=== PATIENT | female | born 1980 | race Caucasian/White ===

== ENCOUNTER → 2016-04-12 | Outpatient (CLI) | payer OTHER ==
--- NOTE | 2016-04-12 22:35 | MR ---
EXAMINATION TYPE: MR lumbar spine wo con DATE OF EXAM: 04/12/2016 6:26 PM COMPARISON: NONE HISTORY: Low back pain TECHNIQUE: T1 and T2 axial and sagittal images of the lumbar spine are submitted. FINDINGS: There is no abnormal signal seen within the visualized spinal cord or paraspinal soft tissu es. At L1-2 there is no evidence of disc herniation or canal stenosis. No foraminal encroachment. At L2-3 there is no evidence of disc herniation or canal stenosis. No foraminal encroachment. At L3-4 there is no evidence of disc herniation or canal stenosis. No foraminal encroachment. There i s facet arthropathy. No nerve root impingement. At L4-5 there is no evidence of disc herniation or canal stenosis. No foraminal encroachment. There i s facet arthropathy. At L5-S1 there is no evidence of disc herniation or canal stenosis. No foraminal encroachment. There is facet arthropathy. IMPRESSION: 1. Facet arthropathy L3-4, L4-5 and L5-S1 but no evidence of disc herniation, canal stenosis or billy inal encroachment.
== END | disposition home or self-care (01) ==
LOC: RADMRIMAIN 17:13
PROVIDERS: ATTEND Nurse Practitioner Family
DX: M46.86 Other specified inflammatory spondylopathies, lumbar region (principal); M54.5 Low back pain
CPT/HCPCS: 72148

== ENCOUNTER → 2016-06-09 | Outpatient (CLI) | payer OTHER ==
--- NOTE | 2016-06-09 21:15 | MR ---
EXAMINATION TYPE: MR knee LT wo con DATE OF EXAM: 06/09/2016 12:41 PM COMPARISON: NONE HISTORY: Acute Pain of Left Knee TECHNIQUE: Multiplanar, multisequence imaging of the left knee is performed without IV contrast. FINDINGS: MEDIAL MENISCUS: Anterior and posterior horns are intact without tear. LATERAL MENISCUS: Anterior and posterior horns are intact without tear. CRUCIATE LIGAMENTS: The anterior and posterior cruciate ligaments are intact and unremarkable. COLLATERAL LIGAMENTS: Abnormal increased signal associated with the medial collateral ligament, there is thickening present, irregularity at the origin suggests at least a partial tear EXTENSOR MECHANISM: Visualized quadriceps and patellar tendons are intact. EFFUSION: Small effusion POPLITEAL CYST: Small semimembranosus gastrocnemius cyst is present TRICOMPARTMENT SPACES: Relatively maintained with the exception of the patellofemoral joint CARTILAGE: Chondromalacia patella, grade IV chondromalacia present especially at the lateral facet. BONE MARROW SIGNAL: Subchondral low signal at the lateral femoral condyle is associated with bone mar row edema compatible with possible subchondral fracture, microtrabecular fracture with bone marrow ed danay. Marrow edema also present in the medial femoral condyle near the origin of the medial collateral ligament OTHER: No additional significant abnormality is appreciated. IMPRESSION: Subchondral fracture lateral femoral condyle is suspected, findings suggest at least a partial tear o f the medial collateral ligament at its origin, there is associated local marrow edema. Chondromalaci a patella.
== END | disposition home or self-care (01) ==
LOC: RADMRIMAIN 11:29
PROVIDERS: ATTEND Nurse Practitioner Family
DX: M22.42 Chondromalacia patellae, left knee (principal); S83.412A Sprain of medial collateral ligament of left knee, initial encounter

== ENCOUNTER → 2016-07-02 | Outpatient (CLI) | payer OTHER ==
--- NOTE | 2016-07-02 10:41 | US ---
EXAMINATION TYPE: US abdomen complete DATE OF EXAM: 07/02/2016 9:22 AM COMPARISON: NONE CLINICAL HISTORY: R10.12 LUQ PAIN. LUQ pain, cholecystectomy EXAM MEASUREMENTS: Liver Length: 19.6 cm Gallbladder Wall: Surgically absent CBD: 0.6 cm Spleen: 10.1 cm Right Kidney: 10.3 x 5.8 x 5.4 cm Left Kidney: 12.0 x 5.4 x 5.7 cm Pancreas: limited evaluation due to overlying bowel, visualized portions appear slightly heterogeneo us Liver: enlarged Gallbladder: Surgically absent CBD: wnl Spleen: wnl Right Kidney: visualized portions show no evidence of hydronephrosis Left Kidney: cystic area lower pole = 1.6 x 1.4 x 1.4cm Upper IVC: wnl Abd Aorta: wnl *Exam limitations due to large amount of overlying bowel content The liver is enlarged. No space occupying lesions noted. The gallbladder is surgically absent. The in trahepatic portion of the IVC and proximal abdominal aorta are within normal limits. Common bile d uct is unremarkable. The visualized portions of the pancreas are homogenous. The spleen is unremark able. Kidneys are symmetric and free of hydronephrosis. Simple appearing appearing cyst lower pole l eft kidney measuring 1.6 x 1.4 x 1.4 cm. IMPRESSION: 1. Hepatomegaly. 2. Simple appearing cyst left kidney.
== END | disposition home or self-care (01) ==
LOC: RADUSWWP 08:41
PROVIDERS: ATTEND Family Medicine
DX: R16.0 Hepatomegaly, not elsewhere classified (principal); N28.1 Cyst of kidney, acquired
CPT/HCPCS: 76700

== ENCOUNTER → 2016-08-07 | Outpatient (CLI) | payer OTHER ==
--- NOTE | 2016-08-07 19:05 | CT ---
EXAMINATION TYPE: CT abdomen w con DATE OF EXAM: 08/07/2016 COMPARISON: NONE HISTORY: Umbilical pain with known hernia CT DLP: 1502 mGycm Automated exposure control for dose reduction was used. TECHNIQUE: Multiple axial sections were obtained from the diaphragm to the iliac crests with intrave nous contrast.. CONTRAST: Performed with Oral Contrast and with IV Contrast, patient injected with 100 mL of Omnipaque 300. FINDINGS: The lung bases are clear. There is no pleural effusion. There is a calcified granuloma in the right l ower lobe. Heart size is normal. There is no pericardial effusion. The liver spleen pancreas appear normal. Ther e are clips from cholecystectomy. Bile ducts are not dilated. There is no adrenal mass. Kidneys show satisfactory contrast opacification. There is no hydronephrosis. There is a 2 cm cortical cyst on the lateral left kidney. There is no retroperitoneal adenopathy. There is an umbilical hernia that conta ins omental fat. I see no bony destructive process. I see no intestinal wall thickening. IMPRESSION: UMBILICAL HERNIA. LEFT RENAL CORTICAL CYST. NO SIGN OF ACUTE ABDOMEN.
== END | disposition home or self-care (01) ==
LOC: RADCTMAIN 17:11
PROVIDERS: ATTEND Surgery
DX: K42.9 Umbilical hernia without obstruction or gangrene (principal); N28.1 Cyst of kidney, acquired
CPT/HCPCS: 74160; Q9967

== ENCOUNTER 2016-08-23 07:59 | Day surgery (SDC) | payer OTHER ==
[2016-08-20 11:10] VITALS: BMI 44.9
[~2016-08-23 07:59] MED LIST: DEXAMETHASONE SOD PHOSPHATE 10 MG/ML 1 ML VIAL IV ONE; HEPARIN SODIUM,PORCINE 5,000 UNIT/ML 1 ML VIAL SQ ONE; LACTATED RINGERS 1,000 ML IV SCH; ONDANSETRON 4 MG/2 ML VIAL IVP ONE; ceFAZolin 2 GM in SODIUM CHLORIDE 0.9% 100 ML IVPB ONE
[2016-08-23] MEDS ORDERED: LACTATED RINGERS 1,000 ML IV ONE ×2 (08:17→10:08)
[2016-08-23] MEDS ORDERED: LIDOCAINE 1% 20 ML VIAL (10MG/ML) FOR IV START INTRADERMA ONE (08:21)
[2016-08-23] MEDS ORDERED: PROPOFOL 10 MG/ML 20 ML VIAL IV ONE (08:30)
[2016-08-23] MEDS ORDERED: fentaNYL (PF) 50 MCG/ML 2 ML AMP ONE (08:30)
[2016-08-23] MEDS ORDERED: VECURONIUM 10 MG VIAL IV ONE (08:30)
[2016-08-23] MEDS ORDERED: NEOSTIGMINE 1 MG/ML 10 ML VIAL ONE (08:30)
[2016-08-23] MEDS ORDERED: LIDOCAINE 1% INJ 10MG/ML (20 ML MDV) ONE (08:30)
[2016-08-23] MEDS ORDERED: MEPERIDINE 50 MG/ML SYRINGE ONE (08:30)
[2016-08-23] MEDS ORDERED: GLYCOPYRROLATE 0.2 MG/ML 2 ML VIAL ONE ×2 (08:30)
[2016-08-23] MEDS ORDERED: SUCCINYLCHOLINE CHLORIDE 100 MG/5 ML SYR IV ONE (08:30)
[2016-08-23] MEDS ORDERED: MIDAZOLAM 2 MG/2 ML VIAL ONE (08:30)
[2016-08-23] MEDS ORDERED: ALBUTEROL INHALER 60 PUFF/8 GM INHALER INHALATION ONE (08:30)
[2016-08-23] MEDS ORDERED: BUPIVACAIN-EPI 0.5%-1:200,000 30 ML VIAL SQ ONE (09:24)
--- NOTE | 2016-08-23 11:00 | P.OP ---
Date of Procedure: 08/23/16 Preoperative Diagnosis: Umbilical hernia Postoperative Diagnosis: incarcerated umbilical hernia containing omentum Procedure(s) Performed: Robot assisted laparoscopic repair of the umbilical hernia with mesh Implants: Anesthesia: JUAN CARLOSA Surgeon: Sandra Farrell Pathology: none sent Condition: stable Disposition: PACU Indications for Procedure: Operative Findings: Description of Procedure: Informed consent was obtained and the patient prior to the operation. Patient identified in the preoperative holding area taken the operating room placed in supine position given general anesthesia with endotracheal intubation. The patient's right arm was tucked and left plaed. After appropriately positioning the patient the patient was prepped and draped in the usual sterile surgical fashion. Appropriate timeout was called. Patient received 2 g of Ancef for skin prophylaxis and 5000 units of subcu heparin for thromboprophylaxis preoperatively. SCDs were placed. Left upper quadrant with a identified and infiltrated with lidocaine small incision was made with the help of 11 blade and then a Veress needle was introduced position of which was checked with the help of the drop test. However, that was not successful. Using the optiview technique the abdomen was entered The abdomen was then insufflated to 15 mmHg. Once that was done, 12 mm port was placed in the left upper quadrant and 2 8 mm ports were placed in the left upper quadrant and left lower quadrant respectively. At this time for laparoscopic scope was removed and the robot was docked with the 12 mm camera and the progress in the left hand and scissors in the right hand were taken. The 3 cm henria was visualized to contain a large amount of omentum. That was gently reduced. The fascial defect was 2.8 cm and a mesh 11cm circular ventralight was selected. The fascial defect was closed with a running 0V lock suture. The mesh was introduced along with the needles. for the 2 0 v lock sutures. . Running 2 0V lock suture was used to stitch the mesh to the abdominal wall. Once that was done both needles were removed and the ometum that had to be broken off was placed in an endocatch bag and removed. . The mesh was flat well in placed with good overlap. There is no bleeding. At this time the procedure was terminated. The robot was undocked and its instruments removed. Using the laparoscope the 12 mm port site was closed with a Hayden Carey and 0 Vicryl. The ports were removed abdomen was desufflated and the skin was closed with the help of 4-0 Monocryl. Dermabond was applied. The patient tolerated the procedure well there were no complications patient was taken to recovery room in stable condition after extubation. Plan - Discharge Summary New Discharge Prescriptions: No Action Albuterol Inhaler [Ventolin Hfa Inhaler] 1 - 2 puff INHALATION Q6HR PRN PRN Reason: asthma FLUoxetine HCL [Sarafem] 60 mg PO HS traZODone HCL 100 mg PO HS Naproxen 500 mg PO DAILY Discharge Medication List Albuterol Inhaler [Ventolin Hfa Inhaler] 1 - 2 puff INHALATION Q6HR PRN [History] FLUoxetine HCL [Sarafem] 60 mg PO HS 08/20/16 [History] Naproxen 500 mg PO DAILY 08/20/16 [History] traZODone HCL 100 mg PO HS 08/20/16 [History]
[2016-08-23 11:03] VITALS: TEMP 97.4
[2016-08-23] MEDS: HYDROmorphone 1 MG/ML 1 ML SYRINGE IVP PRN ×4 (11:15→12:03)
[2016-08-23] MEDS ORDERED: KETOROLAC 30 MG/ML 1 ML VIAL IVP ONE (11:40)
[2016-08-23 12:51] VITALS: RESP 18
[2016-08-23] MEDS ORDERED: HYDROcodone/APAP 5-325MG 1 EACH TAB PO ONE (12:52)
[2016-08-23 13:35] VITALS: BP 114/70; PULSE 76
== END 2016-08-23 14:46 | disposition home or self-care (01) ==
LOC: OR 07:59
PROVIDERS: ATTEND Surgery
DX: K42.0 Umbilical hernia with obstruction, without gangrene (principal); F41.9 Anxiety disorder, unspecified; M19.90 Unspecified osteoarthritis, unspecified site; F32.9 Major depressive disorder, single episode, unspecified; F17.200 Nicotine dependence, unspecified, uncomplicated; J44.9 Chronic obstructive pulmonary disease, unspecified; F39 Unspecified mood [affective] disorder; Z79.1 Long term (current) use of non-steroidal anti-inflammatories (NSAID); Z79.52 Long term (current) use of systemic steroids; Z79.899 Other long term (current) drug therapy
CPT/HCPCS: 49653; S2900; 81025

== ENCOUNTER → 2016-10-05 | Outpatient (CLI) | payer OTHER ==
--- NOTE | 2016-10-05 12:11 | MR ---
MRI CERVICAL SPINE: CLINICAL HISTORY: Cervicalgia per order. Headaches with back pain per patient. TECHNIQUE: Multiplanar, multisequence imaging of the cervical spine is performed without IV contrast. COMPARISON: None. FINDINGS: Sagittal images of the cervical spine show the craniocervical junction to appear within nor mal limits. The cervical and upper thoracic spinal cord is normal in course, caliber, and signal. V ertebral alignment is anatomic. The vertebral body and intravertebral disk heights are normal. There is small posterior disc herniation C6-C7 level on sagittal images. The bone marrow signal intensity is within normal limits. No significant spurring is seen. There is a moderate to severe mucosal thic kening in visualized portion of larger right sphenoid sinus on sagittal image 9. Axial images show the C2-C3 and C3-C4 levels to appear within normal limits. Axial images at the C4-C5 level shows small right focal paracentral disc protrusion mildly effacing a nterior thecal sac near axial image 30, there is mild asymmetric left-sided neural foraminal narrowin g due to early uncovertebral facet arthropathy. Right-sided neural foramen is patent. Axial images at C5-C6 level are felt within normal limits. Axial images at C6-C7 level shows small central disc protrusion mildly effacing anterior thecal sac, bilateral neural foramina are patent. Axial images at C7-T1 level are felt within normal limits. IMPRESSION: Some mild degenerative changes C4-C5 and C6-C7 levels as detailed above.
== END | disposition home or self-care (01) ==
LOC: RADMRIMAIN 10:59
PROVIDERS: ATTEND Physician Assistant
DX: M47.812 Spondylosis without myelopathy or radiculopathy, cervical region (principal)
CPT/HCPCS: 72141

== ENCOUNTER → 2016-10-23 | Outpatient (CLI) | payer OTHER ==
[2016-10-25 14:34] LABS: Alternaria alternata IgE <0.35 kU/L (<0.35); Asperg. fumagatus IgE <0.35 kU/L (<0.35); Asperg. fumagatus IgE Class CLASS 0; Birch(Com.Silvr) IgE Class CLASS 0; Cat Epith & Dander IgE <0.35 kU/L (<0.35); Cat Epith & Dander IgE Class CLASS 0; Clad herbarum IgE <0.35 kU/L (<0.35); Clad herbarum IgE Class CLASS 0; Common Ragweed IgE Class CLASS 0; Dermato. Pteronyssinus Class CLASS 0; Dermato. Pteronyssinus IgE <0.35 kU/L (<0.35); Dermato. farinae IgE <0.35 kU/L (<0.35); Dermato. farinae IgE Class CLASS 0; Maple (Box Elder) IgE <0.35 kU/L (<0.35); Maple (Box Elder) IgE Class CLASS 0; Mountain Cedar IgE <0.35 kU/L (<0.35); Mountain Cedar IgE Class CLASS 0; Mouse Urine IgE Class CLASS 0; Mouse Urine Proteins,IgE <0.35 kU/L (<0.35); Mulberry IgE Class CLASS 0; Nettle IgE <0.35 kU/L (<0.35); Nettle IgE Class CLASS 0; Oak IgE <0.35 kU/L (<0.35); Penicillium notatum IgE Class CLASS 0; Rough Marshelder IgE <0.35 kU/L (<0.35); Rough Marshelder IgE Class CLASS 0; Timothy Grass IgE <0.35 kU/L (<0.35); Timothy Grass IgE Class CLASS 0; White Ash IgE Class CLASS 0
== END | disposition home or self-care (01) ==
LOC: LABWHC1 14:07
PROVIDERS: ATTEND Internal Medicine Sleep Medicine
DX: B44.81 Allergic bronchopulmonary aspergillosis (principal)
CPT/HCPCS: 36415; 82785; 86001; 86003; 86606; 86609

== ENCOUNTER → 2017-01-14 | Outpatient (CLI) | payer OTHER ==
--- NOTE | 2017-01-14 22:58 | MR ---
EXAMINATION TYPE: MR Cspine/lspine wo con DATE OF EXAM: 01/14/2017 COMPARISON: NONE HISTORY: 36-year-old female with low Back Pain /Leg Numbness / TSpine Pain TECHNIQUE: Multiplanar, multisequence imaging of the thoracic spine followed by the lumbar spine is p erformed without IV contrast. FINDINGS: THORACIC SPINE: Mild disc desiccation and disc bulging at C7 without significant spinal canal stenosis. Normal alignment of the thoracic spine. No suspicious bone marrow replacement. Vertebral body heights are maintained. No focal disc herniation or significant spinal canal or neuroforaminal stenosis. Francheska y minimal early disc desiccation and minimal posterior disc bulge at T11-T12. Normal course, caliber, and signal intensity of the cervical cord. No prevertebral or paravertebral soft tissue abnormality seen. LUMBAR SPINE: Vertebral body heights are preserved and alignment is maintained. Conus medullaris is normal. Mild facet degenerative change lower lumbar spine and hypertrophic facet degenerative change at L3-L4 . No suspicious bone marrow replacement. No focal disc herniation or significant spinal canal or neurof oraminal stenosis seen. No prevertebral or paravertebral soft tissue abnormality. COMBINED IMPRESSION: THORACIC SPINE: 1. Unremarkable MRI of the thoracic spine. LUMBAR SPINE: 1. No vertebral compression collapse or malalignment. No focal disc herniation or significant spinal canal or neuroforaminal stenosis. 2. Hypertrophic facet arthropathy L3-L4. Additional mild facet arthropathy lower lumbar spine.
== END | disposition home or self-care (01) ==
LOC: RADMRIMAIN 11:45
PROVIDERS: ATTEND Family Medicine
DX: M46.96 Unspecified inflammatory spondylopathy, lumbar region (principal); M54.6 Pain in thoracic spine; R20.0 Anesthesia of skin
CPT/HCPCS: 72146; 72148

== ENCOUNTER → 2017-04-08 | Outpatient (CLI) | payer OTHER ==
[2017-04-08 13:06] LABS: HCT 47.6 % (34.0-46.0); HGB 15.3 gm/dL (11.4-16.0); MCH 28.8 pg (25.0-35.0); MCHC 32.1 g/dL (31.0-37.0); MCV 89.5 fL (80.0-100.0); Platelet Count 306 k/uL (150-450); RBC 5.31 m/uL (3.80-5.40); RDW 13.9 % (11.5-15.5); WBC 15.2 k/uL (3.8-10.6)
[2017-04-08 13:20] LABS: ALT 23 U/L (9-52); AST 16 U/L (14-36); Albumin 3.7 g/dL (3.5-5.0); Alkaline Phosphatase 70 U/L (38-126); Anion Gap 8 mmol/L; Blood Urea Nitrogen 9 mg/dL (7-17); Calcium 9.5 mg/dL (8.4-10.2); Carbon Dioxide 29 mmol/L (22-30); Chloride 105 mmol/L (98-107); Glucose 78 mg/dL (74-99); Magnesium 2.1 mg/dL (1.6-2.3); Potassium 4.9 mmol/L (3.5-5.1); Sodium 142 mmol/L (137-145); Total Bilirubin 0.2 mg/dL (0.2-1.3); Total Protein 6.2 g/dL (6.3-8.2)
[2017-04-08 13:32] LABS: T4, Free (Free Thyroxine) 0.88 ng/dL (0.78-2.19)
[2017-04-08 19:01] LABS: Vitamin D 25 Hydroxy 15.2 ng/mL (30.0-100.0)
--- NOTE | 2017-04-09 11:09 | MR ---
EXAMINATION TYPE: MR brain wo/w con DATE OF EXAM: 04/08/2017 COMPARISON: NONE HISTORY: Lower leg weakness per order. Numbness in legs with bilateral extremity weakness and numbnes s per patient. TECHNIQUE: Multiplanar, multisequence images of the brain and brainstem is performed without and with IV contras t, utilizing 13 mL intravenous Gadavist . FINDINGS: Diffusion weighted images demonstrate no evidence of a recent infarct or other diffusion ab normality. There is no worrisome extra-axial fluid collection. The ventricular system and cisternal spaces are normal in size and appearance. The brain volume is age appropriate. There are few scatte red foci of T2 hyperintensity seen throughout the white matter bilaterally. There is some artifact de gradation making evaluation suboptimal. I only identify 3-5 small lesions measuring 3 mm or smaller i n size that are present on both T2 and FLAIR weighted images. Midline structures demonstrate normal morphology. The craniocervical junction appears within normal limits. Post contrast images demonstrate no abnormal enhancement. The dural venous sinuses appear pa tent. There is mild mucosal thickening with dependent fluid in the right maxillary sinus. There is mo re moderate mucosal thickening with some dependent fluid in the left maxillary sinus. There is mild m ucosal thickening involving left posterior ethmoid sinus. Nasal Septum is slightly deviated to left o f midline. The globes are intact bilaterally. IMPRESSION: 1. No evidence of a recent infarct. 2. Minimal nonspecific white matter changes. No enhancing lesions are seen. 3. Acute on chronic paranasal sinus disease as detailed above.
== END | disposition home or self-care (01) ==
LOC: RADMRIMAIN 12:11
PROVIDERS: ATTEND Nurse Practitioner Acute Care
DX: R90.82 White matter disease, unspecified (principal); J32.9 Chronic sinusitis, unspecified; J01.80 Other acute sinusitis
CPT/HCPCS: 84439; 84481; 80053; 82607; 83735; 84443; 85027; 82306; 70553; 36415; A9581

== ENCOUNTER → 2017-05-30 | Outpatient (CLI) | payer OTHER ==
[2017-05-30 11:59] LABS: Basophils # (A) 0.1 k/uL (0-0.2); Basophils % (A) 1 %; Eosinophils # (A) 0.4 k/uL (0-0.7); Eosinophils % (A) 3 %; HCT 49.5 % (34.0-46.0); HGB 15.7 gm/dL (11.4-16.0); Lymphocytes # (A) 3.7 k/uL (1.0-4.8); Lymphocytes % (A) 31 %; MCH 27.7 pg (25.0-35.0); MCHC 31.8 g/dL (31.0-37.0); MCV 87.3 fL (80.0-100.0); Mean Platelet Volume 8.7; Monocytes # (A) 0.5 k/uL (0-1.0); Monocytes % (A) 4 %; Neutrophils % (A) 59 %; Platelet Count 296 k/uL (150-450); RBC 5.66 m/uL (3.80-5.40); RDW 14.2 % (11.5-15.5); WBC 11.8 k/uL (3.8-10.6)
== END | disposition home or self-care (01) ==
LOC: LABWHC1 11:27
PROVIDERS: ATTEND Internal Medicine Sleep Medicine
DX: B44.81 Allergic bronchopulmonary aspergillosis (principal)
CPT/HCPCS: 36415; 82785; 85025

== ENCOUNTER → 2017-08-13 | Outpatient (CLI) | payer OTHER ==
[2017-08-13 20:33] LABS: Total Protein,CSF 24 mg/dL (12-60)
[2017-08-13 21:48] LABS: Appearance,CSF Clear; CSF Tube Number 4; CSF Tube Volume 3; Nucleated Cells, CSF 1 u/L (0-5); Red Blood Cell,CSF 0 u/L (0-10)
[2017-08-16 13:49] LABS: IgG - CSF 0.5 mg/dL (0.0 - 3.4); IgG/Albumin Index (CSF) 0.46 (0.00 - 0.77); Immunoglobulin G 479 mg/dL (700 - 1600)
== END | disposition home or self-care (01) ==
LOC: LABWHC1 13:51
PROVIDERS: ATTEND Psychiatry & Neurology Neurology
DX: R90.82 White matter disease, unspecified (principal)
CPT/HCPCS: 36415; 82040; 82042; 82784; 83873; 83916; 84157; 87476; 88108; 89050

== ENCOUNTER → 2018-04-17 | Outpatient (CLI) | payer OTHER ==
--- NOTE | 2018-04-17 09:30 | US ---
EXAMINATION TYPE: US venous doppler duplex LE LT DATE OF EXAM: 04/17/2018 7:33 AM COMPARISON: NONE CLINICAL HISTORY: 38-year-old female M79.89 Swelling left lower M79.605 Pain left lower. Left leg ramsey n x couple years, gotten worse in last couple months, intermittent left leg swelling x couple months SIDE PERFORMED: Left TECHNIQUE: The lower extremity deep venous system is examined utilizing real time linear array sonog cherelle with graded compression, doppler sonography and color-flow sonography. FINDINGS: VESSELS IMAGED: External Iliac Vein (EIV) Common Femoral Vein Deep Femoral Vein Greater Saphenous Vein * Femoral Vein Popliteal Vein Small Saphenous Vein * Proximal Calf Veins (* superficial vessels) Left Leg: Appears negative for DVT IMPRESSION: No evidence for DVT within the left lower extremity imaged from the groin through the upper calf.
== END | disposition home or self-care (01) ==
LOC: RADUSWWP 07:10
PROVIDERS: ATTEND Family Medicine
DX: M79.605 Pain in left leg (principal); M79.89 Other specified soft tissue disorders
CPT/HCPCS: 93922

== ENCOUNTER 2018-11-15 09:55 | Emergency (ER) | payer OTHER ==
[2018-11-15 09:59] VITALS: BP 150/77; PULSE 112; RESP 20; TEMP 98.8
[2018-11-15] MEDS ORDERED: KETOROLAC 60 MG/2 ML VIAL IM STA (10:07)
--- NOTE | 2018-11-15 10:09 | ED ---
Extremity Problem HPI - General Chief complaint: Extremity Problem,Nontraumatic Stated complaint: Arm pain Time Seen by Provider: 11/15/18 09:59 Source: patient, RN notes reviewed, old records reviewed Mode of arrival: ambulatory Limitations: no limitations - History of Present Illness Initial comments: Patient is a 38-year-old female, presents emergency department today for evaluation for right shoulder and arm pain with range of motion. Patient's symptoms started after she was trying to break up a dogfight and she grabbed a 60 pound dog by the collar and pulled up. Patient reports that since that time she's had inability with any range of motion above her head. Patient does walk with a walker. She has history of rheumatoid arthritis and to see Dr. Fowler. Patient is on Stephens chronically for her chronic pain in her back. She reports normal sensation in her hand. She does report that she felt that her arm was swollen. Denies any chest pain shortness of breath. - Related Data Home Medications Medication Instructions Recorded Confirmed Albuterol Inhaler [Ventolin Hfa 1 - 2 puff INHALATION Q6HR PRN 08/20/16 08/20/16 Inhaler] FLUoxetine HCL [Sarafem] 60 mg PO HS 08/20/16 08/20/16 Naproxen 500 mg PO DAILY 08/20/16 08/20/16 traZODone HCL 100 mg PO HS 08/20/16 08/20/16 Previous Rx's Medication Instructions Recorded HYDROcodone/APAP 5-325MG [Stephens 1 tab PO Q6HR PRN #15 tab 08/23/16 5-325] Ibuprofen [Motrin] 800 mg PO Q8H PRN #30 tab 08/23/16 Cyclobenzaprine [Flexeril] 10 mg PO TID #12 tab 11/15/18 Ibuprofen 600 mg PO TID #20 tablet 11/15/18 Allergies Allergy/AdvReac Type Severity Reaction Status Date / Time No Known Allergies Allergy Verified 08/20/16 10:59 Review of Systems ROS Statement: Those systems with pertinent positive or pertinent negative responses have been documented in the HPI. ROS Other: All systems not noted in ROS Statement are negative. Past Medical History Past Medical History: Asthma, COPD, GERD/Reflux, Osteoarthritis (OA), Rheumatoid Arthritis (RA) History of Any Multi-Drug Resistant Organisms: None Reported Past Surgical History: Cholecystectomy, Hernia Repair Past Psychological History: Anxiety, Depression Smoking Status: Current every day smoker Past Alcohol Use History: None Reported Past Drug Use History: None Reported General Exam - General Exam Comments Initial Comments: His is a 38-year-old female. Alert and oriented 3. No distress. Patient is morbidly obese. Ambulates with walker. Limitations: no limitations General appearance: alert, in no apparent distress Head exam: Present: atraumatic, normocephalic, normal inspection Eye exam: Present: normal appearance, PERRL, EOMI. Absent: scleral icterus, conjunctival injection, periorbital swelling ENT exam: Present: normal exam, mucous membranes moist Neck exam: Present: normal inspection Respiratory exam: Present: normal lung sounds bilaterally. Absent: respiratory distress, wheezes, rales, rhonchi, stridor Cardiovascular Exam: Present: regular rate, normal rhythm, normal heart sounds. Absent: systolic murmur, diastolic murmur, rubs, gallop, clicks GI/Abdominal exam: Present: soft, normal bowel sounds. Absent: distended, tenderness, guarding, rebound, rigid Extremities exam: Present: normal inspection, full ROM, normal capillary refill. Absent: tenderness, pedal edema, joint swelling, calf tenderness Right Shoulder Exam: Present: tenderness (Patient has tenderness over the trapezius.). Absent: normal inspection, full ROM Upper Arm exam: Present: normal inspection, full ROM Elbow exam: Present: normal inspection, full ROM Forearm Wrist exam: Present: normal inspection, full ROM Hand Wrist exam: Present: normal inspection, full ROM Vascular: Present: normal capillary refill Back exam: Present: normal inspection Neurological exam: Present: alert, oriented X3, CN II-XII intact Psychiatric exam: Present: normal affect, normal mood Skin exam: Present: warm, dry, intact, normal color. Absent: rash Course Vital Signs 11/15/18 09:56 Temperature 98.8 F Pulse Rate 112 H Respiratory 20 Rate Blood Pressure 150/77 O2 Sat by Pulse 99 Oximetry Procedures - Orthopedic Splinting/Casting Injury #1 Side: right Upper Extremity Injury Location: shoulder Upper Extremity Immobilizer: sling/shoulder immobilizer Additional Comments: Patient is reevaluated neurovascularly intact. Medical Decision Making - Medical Decision Making 38-year-old female presents emergency department today with right shoulder pain injury after pulling her heavy dog from another dog to stop a fight. Patient has pain with range of motion above the head. She is only able to abduct her arm to less than 90. Patient was informed of possible rotator cuff injury. Shoulder x-ray was completed and negative for any acute process. Patient at this time will be placed in a sling. I discussed the possibility of frozen shoulder syndrome and she does get this fully mobilized. 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 Patient is agreeable treatment plan will comply. Return parameters were discussed. - Radiology Data Radiology results: report reviewed Shoulder x-rays negative for any acute osseous lesion. Disposition Clinical Impression: Injury of right shoulder, Rotator cuff (capsule) sprain Disposition: HOME SELF-CARE Condition: Good Instructions (If sedation given, give patient instructions): Rotator Cuff Injury (ED) Additional Instructions: Please use at home medication as discussed. Please follow up with family doctor if symptoms have not improved over the next two days. Please return to the emergency room if your symptoms increase or worsen or for any other concerns. Prescriptions: Cyclobenzaprine [Flexeril] 10 mg PO TID #12 tab Ibuprofen 600 mg PO TID #20 tablet Is patient prescribed a controlled substance at d/c from ED?: No Referrals: Demi Topete MD [Primary Care Provider] - 1-2 days Kleber Roberts DO [Doctor of Osteopathic Medicine] - 1-2 days Time of Disposition: 10:29
--- NOTE | 2018-11-15 10:20 | XR ---
EXAMINATION TYPE: XR shoulder complete RT , 3 VIEWS DATE OF EXAM ORDERED: 11/15/2018 HISTORY: pulling injury, immobility. COMPARISON: None. FINDINGS: No fracture, dislocation or other acute osseous lesion is seen. IMPRESSION: NO ACUTE OSSEOUS LESION.
== END 2018-11-15 10:37 | disposition home or self-care (01) ==
LOC: EC 09:55
DX: S43.421A Sprain of right rotator cuff capsule, initial encounter (principal); G89.29 Other chronic pain; M54.9 Dorsalgia, unspecified; J44.9 Chronic obstructive pulmonary disease, unspecified; M19.90 Unspecified osteoarthritis, unspecified site; M06.9 Rheumatoid arthritis, unspecified; F32.9 Major depressive disorder, single episode, unspecified; F41.9 Anxiety disorder, unspecified; F17.200 Nicotine dependence, unspecified, uncomplicated; Z79.1 Long term (current) use of non-steroidal anti-inflammatories (NSAID); Z79.891 Long term (current) use of opiate analgesic; Z79.899 Other long term (current) drug therapy; X50.9XXA Other and unspecified overexertion or strenuous movements or postures, initial encounter; Y93.89 Activity, other specified
CPT/HCPCS: 73030; 99284; 96372; J1885

== ENCOUNTER 2020-07-26 09:39 | Inpatient (IN) | payer MEDICARE, OTHER ==
[2020-07-26] MEDS ORDERED: IPRATROPIUM-ALBUTEROL 3 ML NEB INHALATION STA (09:42)
[2020-07-26] MEDS ORDERED: methylPREDNISolone SOD SUCCI 125 MG/2 ML VIAL IV STA (09:42)
--- NOTE | 2020-07-26 10:09 | ED ---
SOB HPI - General Chief Complaint: Shortness of Breath Stated Complaint: SOB Time Seen by Provider: 07/26/20 09:39 Source: patient, EMS, RN notes reviewed Mode of arrival: EMS Limitations: no limitations - History of Present Illness Initial Comments: This is a 40-year-old female history of asthma COPD who states she's been short of breath or past several days also left upper quadrant pain for the last several days no fevers chills nausea vomiting sweats just no relief from her home medications patient was sent in by the primary care provider was brought in by EMS. Patient did take breathing treatments this morning without any relief at all. No other complaints or modifying factors MD Complaint: shortness of breath - Related Data Home Medications Medication Instructions Recorded Confirmed Amitriptyline HCl [Elavil] 150 mg PO HS 02/20/19 07/26/20 DULoxetine HCL [Cymbalta] 60 mg PO DAILY 02/20/19 07/26/20 Folic Acid 1 mg PO DAILY 02/20/19 07/26/20 Hydrocodone/Acetaminophen [[place] 1 tab PO BID PRN 02/20/19 07/26/20 7.5-325] Methotrexate/Pf [Rasuvo 25 mg/0.5 25 mg SQ SA 02/20/19 07/26/20 ml Autoinj] Omeprazole [PriLOSEC] 20 mg PO AC-BRKFST 02/20/19 07/26/20 Pregabalin [Lyrica] 300 mg PO BID 02/20/19 07/26/20 medroxyPROGESTERone [Depo-Provera] 150 mg IM Q90D 02/20/19 07/26/20 Artificial Tears-Hypromellose 1 drops BOTH EYES TID PRN 03/19/19 07/26/20 [Artificial Tear Drops] Potassium Chloride 10 meq PO DAILY 03/19/19 07/26/20 Albuterol Inhaler [Ventolin Hfa 2 puff INHALATION RT-Q4H PRN 07/26/20 07/26/20 Inhaler] Cholecalciferol [Vitamin D3 (25 50 mcg PO DAILY 07/26/20 07/26/20 Mcg = 1000 Iu)] Diclofenac Sodium Gel [Voltaren 2 gm TOPICAL TID 07/26/20 07/26/20 Gel] Ipratropium-Albuterol Nebulize 3 ml INHALATION RT-QID 07/26/20 07/26/20 [Duoneb 0.5 mg-3 mg/3 ml Soln] Loratadine [Claritin] 10 mg PO DAILY 07/26/20 07/26/20 Sarilumab [Kevzara] 200 mg SQ Q14D 07/26/20 07/26/20 Torsemide [Demadex] 40 mg PO DAILY 07/26/20 07/26/20 metFORMIN HCL [Glucophage] 500 mg PO DAILY 07/26/20 07/26/20 rOPINIRole HCL [Requip] 3 mg PO HS 07/26/20 07/26/20 Allergies Allergy/AdvReac Type Severity Reaction Status Date / Time No Known Allergies Allergy Verified 03/19/19 14:11 Review of Systems ROS Statement: Those systems with pertinent positive or pertinent negative responses have been documented in the HPI. ROS Other: All systems not noted in ROS Statement are negative. Past Medical History Past Medical History: Asthma, COPD, GERD/Reflux, Osteoarthritis (OA), Rheumatoid Arthritis (RA) Additional Past Medical History / Comment(s): migraines, edema celia ankles, History of Any Multi-Drug Resistant Organisms: None Reported Past Surgical History: Cholecystectomy, Hernia Repair Additional Past Surgical History / Comment(s): oral surgery, Past Anesthesia/Blood Transfusion Reactions: No Reported Reaction Past Psychological History: Anxiety, Depression, PTSD Smoking Status: Former smoker Past Alcohol Use History: None Reported Past Drug Use History: Marijuana - Past Family History Mother Family Medical History: No Reported History General Exam - General Exam Comments Initial Comments: This is a well-developed morbidly obese female who is awake alert demonstrate respiratory distress Limitations: no limitations General appearance: alert, anxious, in distress Head exam: Present: atraumatic, normocephalic, normal inspection Eye exam: Present: normal appearance, PERRL, EOMI. Absent: scleral icterus, conjunctival injection, periorbital swelling ENT exam: Present: normal exam, mucous membranes moist Neck exam: Present: normal inspection. Absent: tenderness, meningismus, lymphadenopathy Respiratory exam: Present: wheezes, decreased breath sounds. Absent: respiratory distress, rales, rhonchi, stridor Cardiovascular Exam: Present: normal rhythm, tachycardia, normal heart sounds. Absent: systolic murmur, diastolic murmur, rubs, gallop, clicks GI/Abdominal exam: Present: soft, normal bowel sounds, other (Obese abdomen). Absent: distended, tenderness, guarding, rebound, rigid Extremities exam: Present: normal inspection, full ROM, normal capillary refill. Absent: tenderness, pedal edema, joint swelling, calf tenderness Back exam: Present: normal inspection Neurological exam: Present: alert, oriented X3, CN II-XII intact Psychiatric exam: Present: normal affect, normal mood Skin exam: Present: warm, dry, intact, normal color. Absent: rash Course Vital Signs 07/26/20 07/26/20 07/26/20 09:40 09:53 10:26 Temperature 98.5 F Pulse Rate 133 H 116 H 120 H Respiratory 28 H 24 Rate Blood Pressure 128/94 O2 Sat by Pulse 89 L 92 L Oximetry 07/26/20 07/26/20 07/26/20 10:35 10:43 11:07 Temperature Pulse Rate 118 H 112 H 111 H Respiratory 24 20 Rate Blood Pressure 134/93 134/93 O2 Sat by Pulse 94 L 94 L Oximetry 07/26/20 07/26/20 11:37 13:00 Temperature Pulse Rate 111 H 112 H Respiratory 20 20 Rate Blood Pressure 138/97 127/90 O2 Sat by Pulse 94 L 95 Oximetry - Reevaluation(s) Reevaluation #1: 07/26/20 13:17 Reevaluation patient she is feeling improved Medical Decision Making - Medical Decision Making Patient does demonstrate evidence of COPD exacerbation addition to bilateral pulmonary emboli. CAT scan evidence of right heart strain echocardiogram pending patient will be admitted I did discuss case Dr. carranza and Dr. Camp. This will be pending the echo I did discuss case also with Dr. Gillis. - Lab Data Result diagrams: 07/26/20 09:57 07/26/20 09:57 Lab Results 07/26/20 07/26/20 07/26/20 Range/Units 09:57 09:57 09:57 WBC 14.2 H (3.8-10.6) k/uL RBC 5.50 H (3.80-5.40) m/uL Hgb 13.7 (11.4-16.0) gm/dL Hct 45.1 (34.0-46.0) % MCV 82.0 (80.0-100.0) fL MCH 24.9 L (25.0-35.0) pg MCHC 30.4 L (31.0-37.0) g/dL RDW 21.7 H (11.5-15.5) % Plt Count 230 (150-450) k/uL MPV 11.5 Neutrophils % 77 % Lymphocytes % 19 % Monocytes % 2 % Eosinophils % 0 % Basophils % 0 % Neutrophils # 10.9 H (1.3-7.7) k/uL Lymphocytes # 2.7 (1.0-4.8) k/uL Monocytes # 0.3 (0-1.0) k/uL Eosinophils # 0.0 (0-0.7) k/uL Basophils # 0.1 (0-0.2) k/uL Hypochromasia Marked Poikilocytosis Slight Anisocytosis Moderate Microcytosis Slight PT 10.8 (9.0-12.0) sec INR 1.0 (<1.2) APTT 20.1 L (22.0-30.0) sec D-Dimer 4.53 H (<0.60) mg/L FEU Sodium 137 (137-145) mmol/L Potassium 4.3 (3.5-5.1) mmol/L Chloride 103 (98-107) mmol/L Carbon Dioxide 25 (22-30) mmol/L Anion Gap 9 mmol/L BUN 12 (7-17) mg/dL Creatinine 0.84 (0.52-1.04) mg/dL Est GFR (CKD-EPI)AfAm >90 (>60 ml/min/1.73 sqM) Est GFR (CKD-EPI)NonAf 87 (>60 ml/min/1.73 sqM) Glucose 169 H (74-99) mg/dL Lactic Ac Sepsis Rflx Plasma Lactic Acid Frank (0.7-2.0) mmol/L Calcium 8.6 (8.4-10.2) mg/dL Magnesium 1.7 (1.6-2.3) mg/dL Total Bilirubin 1.0 (0.2-1.3) mg/dL AST 39 H (14-36) U/L ALT 53 H (4-34) U/L Alkaline Phosphatase 105 (38-126) U/L Creatine Kinase 72 (30-135) U/L Troponin I (0.000-0.034) ng/mL NT-Pro-B Natriuret Pep pg/mL Total Protein 5.9 L (6.3-8.2) g/dL Albumin 3.7 (3.5-5.0) g/dL Lipase (23-300) U/L Coronavirus (PCR) (Not Detectd) 07/26/20 07/26/20 07/26/20 Range/Units 09:57 09:57 09:57 WBC (3.8-10.6) k/uL RBC (3.80-5.40) m/uL Hgb (11.4-16.0) gm/dL Hct (34.0-46.0) % MCV (80.0-100.0) fL MCH (25.0-35.0) pg MCHC (31.0-37.0) g/dL RDW (11.5-15.5) % Plt Count (150-450) k/uL MPV Neutrophils % % Lymphocytes % % Monocytes % % Eosinophils % % Basophils % % Neutrophils # (1.3-7.7) k/uL Lymphocytes # (1.0-4.8) k/uL Monocytes # (0-1.0) k/uL Eosinophils # (0-0.7) k/uL Basophils # (0-0.2) k/uL Hypochromasia Poikilocytosis Anisocytosis Microcytosis PT (9.0-12.0) sec INR (<1.2) APTT (22.0-30.0) sec D-Dimer (<0.60) mg/L FEU Sodium (137-145) mmol/L Potassium (3.5-5.1) mmol/L Chloride (98-107) mmol/L Carbon Dioxide (22-30) mmol/L Anion Gap mmol/L BUN (7-17) mg/dL Creatinine (0.52-1.04) mg/dL Est GFR (CKD-EPI)AfAm (>60 ml/min/1.73 sqM) Est GFR (CKD-EPI)NonAf (>60 ml/min/1.73 sqM) Glucose (74-99) mg/dL Lactic Ac Sepsis Rflx Plasma Lactic Acid Frank 2.9 H* (0.7-2.0) mmol/L Calcium (8.4-10.2) mg/dL Magnesium (1.6-2.3) mg/dL Total Bilirubin (0.2-1.3) mg/dL AST (14-36) U/L ALT (4-34) U/L Alkaline Phosphatase (38-126) U/L Creatine Kinase (30-135) U/L Troponin I 0.017 (0.000-0.034) ng/mL NT-Pro-B Natriuret Pep 4690 pg/mL Total Protein (6.3-8.2) g/dL Albumin (3.5-5.0) g/dL Lipase (23-300) U/L Coronavirus (PCR) (Not Detectd) 07/26/20 07/26/20 07/26/20 Range/Units 09:57 10:01 10:55 WBC (3.8-10.6) k/uL RBC (3.80-5.40) m/uL Hgb (11.4-16.0) gm/dL Hct (34.0-46.0) % MCV (80.0-100.0) fL MCH (25.0-35.0) pg MCHC (31.0-37.0) g/dL RDW (11.5-15.5) % Plt Count (150-450) k/uL MPV Neutrophils % % Lymphocytes % % Monocytes % % Eosinophils % % Basophils % % Neutrophils # (1.3-7.7) k/uL Lymphocytes # (1.0-4.8) k/uL Monocytes # (0-1.0) k/uL Eosinophils # (0-0.7) k/uL Basophils # (0-0.2) k/uL Hypochromasia Poikilocytosis Anisocytosis Microcytosis PT (9.0-12.0) sec INR (<1.2) APTT (22.0-30.0) sec D-Dimer (<0.60) mg/L FEU Sodium (137-145) mmol/L Potassium (3.5-5.1) mmol/L Chloride (98-107) mmol/L Carbon Dioxide (22-30) mmol/L Anion Gap mmol/L BUN (7-17) mg/dL Creatinine (0.52-1.04) mg/dL Est GFR (CKD-EPI)AfAm (>60 ml/min/1.73 sqM) Est GFR (CKD-EPI)NonAf (>60 ml/min/1.73 sqM) Glucose (74-99) mg/dL Lactic Ac Sepsis Rflx Y Plasma Lactic Acid Frank (0.7-2.0) mmol/L Calcium (8.4-10.2) mg/dL Magnesium (1.6-2.3) mg/dL Total Bilirubin (0.2-1.3) mg/dL AST (14-36) U/L ALT (4-34) U/L Alkaline Phosphatase (38-126) U/L Creatine Kinase (30-135) U/L Troponin I (0.000-0.034) ng/mL NT-Pro-B Natriuret Pep pg/mL Total Protein (6.3-8.2) g/dL Albumin (3.5-5.0) g/dL Lipase 23 (23-300) U/L Coronavirus (PCR) Not Detected (Not Detectd) - EKG Data -: EKG Interpreted by Me EKG shows normal: sinus rhythm EKG Comments: Plan tachycardia rate 122 1:30 QRS duration 90 QT since QTC 332/473 right word axis low-voltage poor R- wave progression - Radiology Data Radiology results: report reviewed (Imaging reviewed evidence of bilateral PEs with right heart strain findings on CAT scan. Case was discussed with Dr. Norris), image reviewed Critical Care Time Critical Care Time: Yes Total Critical Care Time: 42 Critical Care Time: Critical care time with history physical labs x-rays discussed with paramedics discussed with the sending provider. Reevaluation the patient discussion with multiple physicians admission orders documentation the above Disposition Clinical Impression: Acute exacerbation of chronic obstructive pulmonary disease, Bilateral pulmonary embolism Disposition: ADMITTED IP TO THIS HOSP Condition: Fair Referrals: Demi Topete MD [Primary Care Provider] - 1-2 days
--- NOTE | 2020-07-26 10:26 | XR ---
EXAMINATION TYPE: XR chest 2V DATE OF EXAM: 07/26/2020 COMPARISON: CT abdomen 08/07/2016 HISTORY: Difficulty breathing, shortness of breath TECHNIQUE: Frontal and lateral views of the chest are obtained. FINDINGS: There is some blunting of the posterior costophrenic angle seen on the lateral exam. Patie nt is rotated. Heart size is accentuated. No evident pneumothorax. Abnormal density present at the le patricia of the left heart border and left chest phrenic angle. IMPRESSION: Possible left lower lobe pneumonia, difficult to exclude effusion. Rotated exam. Follow- up is recommended.
[2020-07-26 10:30] LABS: ALT 53 U/L (4-34); AST 39 U/L (14-36); African American GFR (CKD) >90 (>60 ml/min/1.73 sqM); Albumin 3.7 g/dL (3.5-5.0); Alkaline Phosphatase 105 U/L (38-126); Anion Gap 9 mmol/L; Blood Urea Nitrogen 12 mg/dL (7-17); Calcium 8.6 mg/dL (8.4-10.2); Carbon Dioxide 25 mmol/L (22-30); Chloride 103 mmol/L (98-107); Creatine Kinase 72 U/L (30-135); Glucose 169 mg/dL (74-99); Magnesium 1.7 mg/dL (1.6-2.3); Non-African American GFR(CKD) 87 (>60 ml/min/1.73 sqM); Potassium 4.3 mmol/L (3.5-5.1); Sodium 137 mmol/L (137-145); Total Protein 5.9 g/dL (6.3-8.2)
[2020-07-26 10:31] LABS: Anisocytosis Moderate; Basophils # (A) 0.1 k/uL (0-0.2); Basophils % (A) 0 %; Eosinophils % (A) 0 %; HCT 45.1 % (34.0-46.0); HGB 13.7 gm/dL (11.4-16.0); Hypochromasia Marked; Lymphocytes # (A) 2.7 k/uL (1.0-4.8); Lymphocytes % (A) 19 %; MCH 24.9 pg (25.0-35.0); MCHC 30.4 g/dL (31.0-37.0); Mean Platelet Volume 11.5; Microcytosis Slight; Monocytes # (A) 0.3 k/uL (0-1.0); Monocytes % (A) 2 %; Neutrophils # (A) 10.9 k/uL (1.3-7.7); Neutrophils % (A) 77 %; Platelet Count 230 k/uL (150-450); Poikilocytosis Slight; RDW 21.7 % (11.5-15.5); WBC 14.2 k/uL (3.8-10.6)
[2020-07-26 10:48] LABS: Prothrombin Time 10.8 sec (9.0-12.0)
[2020-07-26 10:56] LABS: D-Dimer 4.53 mg/L FEU (<0.60); Partial Thromboplastin Time 20.1 sec (22.0-30.0)
[2020-07-26] MEDS ORDERED: cefTRIAXone IN SWFI 1,000 MG/10 ML SYRINGE IVP STA (10:58)
[2020-07-26] MEDS ORDERED: SODIUM CHLORIDE 0.9% 1,000 ML IV STA ×2 (10:58)
[2020-07-26] MEDS ORDERED: FUROSEMIDE 10 MG/ML 4 ML VIAL IV STA (11:10)
--- NOTE | 2020-07-26 11:40 | CT ---
EXAMINATION TYPE: CT angio chest DATE OF EXAM: 07/26/2020 11:28 AM COMPARISON: None HISTORY: elevated d-dimer CT DLP: 1274.6 mGycm Automated exposure control for dose reduction was used. CONTRAST: CTA scan of the thorax is performed with IV Contrast, patient injected with 100ml mL of Isovue 370, p ulmonary embolism protocol. . FINDINGS: LUNGS: There is groundglass changes seen within the lungs bilaterally. Trace amount of pleural fluid on the left. No sizable pneumothorax. Bilateral calcified granuloma. MEDIASTINUM: There is a large central pulmonary embolism involving the distal right and proximal left pulmonary arteries extending into the secondary and distal branches bilaterally. The right ventricul ar to left ventricular ratio measures greater than 1 correlate for RV strain. Heart size is normal. Aorta of normal caliber with limited visualization due to significant artifact. OTHER: Changes of anasarca. Hypertrophic and degenerative changes of the spine. IMPRESSION: 1. Large bilateral pulmonary acute embolism with involvement of the right and left main pulmonary art eries. There is extension into the secondary and distal branches compatible with large burden an acut e bilateral pulmonary embolism and right ventricular strain. 2. Small left pleural effusion with areas of consolidation and groundglass opacification correlate fo r pneumonitis. A peripheral based area of consolidation left lower lobe could represent pulmonary inf arct.
[2020-07-26] MEDS ORDERED: HEPARIN SODIUM 1,000 UN/ML (10ML VL) IV PRN (11:41)
[2020-07-26] MEDS ORDERED: HEPARIN SODIUM 1,000 UN/ML (10ML VL) IV ONE (11:41)
[2020-07-26] MEDS: HEPARIN SOD,PORK IN 0.45% NACL 25,000 UNIT in 0.45% NACL 1 250ML.BAG IV SCH (12:39)
--- NOTE | 2020-07-26 14:20 | P.GSCN ---
History of Present Illness Consult date: 07/26/20 Reason for Consult: Pulmonary embolism Requesting physician: Jonathan E Sheet History of present illness: This is a pleasant 40-year-old morbidly obese white female who presented to the emergency department with complaints of increased shortness of breath. Patient states she started having increased shortness of breath on Saturday and finding it more difficult to breathe therefore came to the emergency department for further evaluation. She also stating that she is having left chest pain, hard to even lay on that side. As part of her initial workup she had a positive d-dimer, troponins were negative. She underwent a CT angiogram of the chest which showed a large bilateral pulmonary acute embolism with involvement of the right and left main pulmonary arteries. There is extension into the secondary distal bran ches compatible with large burden of acute bilateral pulmonary embolism and right ventricle strain area small pleural effusion with areas of consolidation and groundglass opacification correlate for pneumonitis. A peripheral based area of consolidation left lower lobe could represent pulmonary infarct. The patient denies any history of previous blood clots, clotting disorders, family history of clotting disorders, or recent diagnosis of COVID-19 infection. She is a positive smoker since the 1980s which she states she smokes off and on. She denies any history of coronary artery disease, states she has a history of asthma COPD and rheumatoid arthritis. Patient is currently on 4 L nasal cannul with a saturation of 94-95%, with tachypnea and tachycardia. Echocardiogram has been ordered stat, is still pending. She has been started on a heparin drip. She currently states she is short of breath, having left-sided chest pain, denies any fevers or chills, extremity pain, nausea or vomiting. Review of Systems A 14 point review of systems was completed all pertinent positives and negatives as stated in the HPI Past Medical History Past Medical History: Asthma, COPD, GERD/Reflux, Osteoarthritis (OA), Rheumatoid Arthritis (RA) Additional Past Medical History / Comment(s): migraines, edema celia ankles, History of Any Multi-Drug Resistant Organisms: None Reported Past Surgical History: Cholecystectomy, Hernia Repair Additional Past Surgical History / Comment(s): oral surgery, Past Anesthesia/Blood Transfusion Reactions: No Reported Reaction Past Psychological History: Anxiety, Depression, PTSD Smoking Status: Former smoker Past Alcohol Use History: None Reported Past Drug Use History: Marijuana - Past Family History Mother Family Medical History: No Reported History Medications and Allergies Home Medications Medication Instructions Recorded Confirmed Type Amitriptyline HCl [Elavil] 150 mg PO HS 02/20/19 07/26/20 History DULoxetine HCL [Cymbalta] 60 mg PO DAILY 02/20/19 07/26/20 History Folic Acid 1 mg PO DAILY 02/20/19 07/26/20 History Hydrocodone/Acetaminophen [[place] 1 tab PO BID PRN 02/20/19 07/26/20 History 7.5-325] Methotrexate/Pf [Rasuvo 25 mg/0.5 25 mg SQ SA 02/20/19 07/26/20 History ml Autoinj] Omeprazole [PriLOSEC] 20 mg PO AC-BRKFST 02/20/19 07/26/20 History Pregabalin [Lyrica] 300 mg PO BID 02/20/19 07/26/20 History medroxyPROGESTERone [Depo-Provera] 150 mg IM Q90D 02/20/19 07/26/20 History Artificial Tears-Hypromellose 1 drops BOTH EYES TID PRN 03/19/19 07/26/20 History [Artificial Tear Drops] Potassium Chloride 10 meq PO DAILY 03/19/19 07/26/20 History Albuterol Inhaler [Ventolin Hfa 2 puff INHALATION RT-Q4H PRN 07/26/20 07/26/20 History Inhaler] Cholecalciferol [Vitamin D3 (25 50 mcg PO DAILY 07/26/20 07/26/20 History Mcg = 1000 Iu)] Diclofenac Sodium Gel [Voltaren 2 gm TOPICAL TID 07/26/20 07/26/20 History Gel] Ipratropium-Albuterol Nebulize 3 ml INHALATION RT-QID 07/26/20 07/26/20 History [Duoneb 0.5 mg-3 mg/3 ml Soln] Loratadine [Claritin] 10 mg PO DAILY 07/26/20 07/26/20 History Sarilumab [Kevzara] 200 mg SQ Q14D 07/26/20 07/26/20 History Torsemide [Demadex] 40 mg PO DAILY 07/26/20 07/26/20 History metFORMIN HCL [Glucophage] 500 mg PO DAILY 07/26/20 07/26/20 History rOPINIRole HCL [Requip] 3 mg PO HS 07/26/20 07/26/20 History Allergies Allergy/AdvReac Type Severity Reaction Status Date / Time No Known Allergies Allergy Verified 03/19/19 14:11 Surgical - Exam Vital Signs Temp Pulse Resp BP Pulse Ox 98.5 F 133 H 28 H 128/94 89 L 07/26/20 09:40 07/26/20 09:40 07/26/20 09:40 07/26/20 09:40 07/26/20 09:40 Results - Labs 07/26/20 09:57 07/26/20 09:57 Abnormal Lab Results - Last 24 Hours (Table) 07/26/20 07/26/20 07/26/20 Range/Units 09:57 09:57 09:57 WBC 14.2 H (3.8-10.6) k/uL RBC 5.50 H (3.80-5.40) m/uL MCH 24.9 L (25.0-35.0) pg MCHC 30.4 L (31.0-37.0) g/dL RDW 21.7 H (11.5-15.5) % Neutrophils # 10.9 H (1.3-7.7) k/uL APTT 20.1 L (22.0-30.0) sec D-Dimer 4.53 H (<0.60) mg/L FEU Glucose 169 H (74-99) mg/dL Plasma Lactic Acid Frank (0.7-2.0) mmol/L AST 39 H (14-36) U/L ALT 53 H (4-34) U/L Total Protein 5.9 L (6.3-8.2) g/dL 07/26/20 Range/Units 09:57 WBC (3.8-10.6) k/uL RBC (3.80-5.40) m/uL MCH (25.0-35.0) pg MCHC (31.0-37.0) g/dL RDW (11.5-15.5) % Neutrophils # (1.3-7.7) k/uL APTT (22.0-30.0) sec D-Dimer (<0.60) mg/L FEU Glucose (74-99) mg/dL Plasma Lactic Acid Frank 2.9 H* (0.7-2.0) mmol/L AST (14-36) U/L ALT (4-34) U/L Total Protein (6.3-8.2) g/dL Diabetes panel 07/26/20 Range/Units 09:57 Sodium 137 (137-145) mmol/L Potassium 4.3 (3.5-5.1) mmol/L Chloride 103 (98-107) mmol/L Carbon Dioxide 25 (22-30) mmol/L BUN 12 (7-17) mg/dL Creatinine 0.84 (0.52-1.04) mg/dL Glucose 169 H (74-99) mg/dL Calcium 8.6 (8.4-10.2) mg/dL AST 39 H (14-36) U/L ALT 53 H (4-34) U/L Alkaline Phosphatase 105 (38-126) U/L Total Protein 5.9 L (6.3-8.2) g/dL Albumin 3.7 (3.5-5.0) g/dL Calcium panel 07/26/20 Range/Units 09:57 Calcium 8.6 (8.4-10.2) mg/dL Albumin 3.7 (3.5-5.0) g/dL Pituitary panel 07/26/20 Range/Units 09:57 Sodium 137 (137-145) mmol/L Potassium 4.3 (3.5-5.1) mmol/L Chloride 103 (98-107) mmol/L Carbon Dioxide 25 (22-30) mmol/L BUN 12 (7-17) mg/dL Creatinine 0.84 (0.52-1.04) mg/dL Glucose 169 H (74-99) mg/dL Calcium 8.6 (8.4-10.2) mg/dL Adrenal panel 07/26/20 Range/Units 09:57 Sodium 137 (137-145) mmol/L Potassium 4.3 (3.5-5.1) mmol/L Chloride 103 (98-107) mmol/L Carbon Dioxide 25 (22-30) mmol/L BUN 12 (7-17) mg/dL Creatinine 0.84 (0.52-1.04) mg/dL Glucose 169 H (74-99) mg/dL Calcium 8.6 (8.4-10.2) mg/dL Total Bilirubin 1.0 (0.2-1.3) mg/dL AST 39 H (14-36) U/L ALT 53 H (4-34) U/L Alkaline Phosphatase 105 (38-126) U/L Total Protein 5.9 L (6.3-8.2) g/dL Albumin 3.7 (3.5-5.0) g/dL - Imaging CT scan - chest: report reviewed (CT angiogram of the chest which showed a large bilateral pulmonary acute embolism with involvement of the right and left main pulmonary arteries. There is extension into the secondary distal branches compatible with large burden of acute bilateral pulmonary embolism and right ventricle strain area) Assessment and Plan Assessment: 1. Bilateral pulmonary embolism 2. Morbid obesity 3. History of COPD 4. Tobacco abuse Plan: 1. Continue IV heparin drip 2. Dr. Santa [address] angiogram 3. Echocardiogram ordered, await findings 4. Further recommendations to follow Thank you for this consultation, we will continue to follow The impression and plan of care has been dictated as directed. I performed a history and examination of this patient, discussed the same with the dictator. I agree with the dictator's note ,documented as a scribe. Any additional findings or plans will be noted.
--- NOTE | 2020-07-26 14:23 | P.GSCN ---
History of Present Illness Consult date: 07/26/20 Reason for Consult: Bilateral pulmonary embolism Requesting physician: Jonathan E Sheet History of present illness: This is a pleasant 40-year-old morbidly obese white female who presented to the emergency department with complaints of increased shortness of breath. Patient states she started having increased shortness of breath on Saturday and finding it more difficult to breathe therefore came to the emergency department for further evaluation. She also stating that she is having left chest pain, hard to even lay on that side. As part of her initial workup she had a positive d-dimer, troponins were negative. She underwent a CT angiogram of the chest which showed a large bilateral pulmonary acute embolism with involvement of the right and left main pulmonary arteries. There is extension into the secondary distal branches compatible with large burden of acute bilateral pulmonary embolism and right ventricle strain area small pleural effusion with areas of consolidation and groundglass opacification correlate for pneumonitis. A peripheral based area of consolidation left lower lobe could represent pulmonary infarct. The patient denies any history of previous blood clots, clotting disorders, family h istory of clotting disorders, or recent diagnosis of COVID-19 infection. She is a positive smoker since the which she states she smokes off and on. She denies any history of coronary artery disease, states she has a history of asthma COPD and rheumatoid arthritis. Patient is currently on 4 L nasal cannul with a saturation of 94-95%, with tachypnea and tachycardia. Echocardiogram has been ordered stat, is still pending. She has been started on a heparin drip. She currently states she is short of breath, having left-sided chest pain, denies any fevers or chills, extremity pain, nausea or vomiting. Review of Systems A 14 point review of systems was completed all pertinent positives and negatives as stated in the HPI Past Medical History Past Medical History: Asthma, COPD, GERD/Reflux, Osteoarthritis (OA), Rheumatoid Arthritis (RA) Additional Past Medical History / Comment(s): migraines, edema celia ankles, History of Any Multi-Drug Resistant Organisms: None Reported Past Surgical History: Cholecystectomy, Hernia Repair Additional Past Surgical History / Comment(s): oral surgery, Past Anesthesia/Blood Transfusion Reactions: No Reported Reaction Past Psychological History: Anxiety, Depression, PTSD Smoking Status: Former smoker Past Alcohol Use History: None Reported Past Drug Use History: Marijuana - Past Family History Mother Family Medical History: No Reported History Medications and Allergies Home Medications Medication Instructions Recorded Confirmed Type Amitriptyline HCl [Elavil] 150 mg PO HS 02/20/19 07/26/20 History DULoxetine HCL [Cymbalta] 60 mg PO DAILY 02/20/19 07/26/20 History Folic Acid 1 mg PO DAILY 02/20/19 07/26/20 History Hydrocodone/Acetaminophen [[place] 1 tab PO BID PRN 02/20/19 07/26/20 History 7.5-325] Methotrexate/Pf [Rasuvo 25 mg/0.5 25 mg SQ SA 02/20/19 07/26/20 History ml Autoinj] Omeprazole [PriLOSEC] 20 mg PO AC-BRKFST 02/20/19 07/26/20 History Pregabalin [Lyrica] 300 mg PO BID 02/20/19 07/26/20 History medroxyPROGESTERone [Depo-Provera] 150 mg IM Q90D 02/20/19 07/26/20 History Artificial Tears-Hypromellose 1 drops BOTH EYES TID PRN 03/19/19 07/26/20 History [Artificial Tear Drops] Potassium Chloride 10 meq PO DAILY 03/19/19 07/26/20 History Albuterol Inhaler [Ventolin Hfa 2 puff INHALATION RT-Q4H PRN 07/26/20 07/26/20 History Inhaler] Cholecalciferol [Vitamin D3 (25 50 mcg PO DAILY 07/26/20 07/26/20 History Mcg = 1000 Iu)] Diclofenac Sodium Gel [Voltaren 2 gm TOPICAL TID 07/26/20 07/26/20 History Gel] Ipratropium-Albuterol Nebulize 3 ml INHALATION RT-QID 07/26/20 07/26/20 History [Duoneb 0.5 mg-3 mg/3 ml Soln] Loratadine [Claritin] 10 mg PO DAILY 07/26/20 07/26/20 History Sarilumab [Kevzara] 200 mg SQ Q14D 07/26/20 07/26/20 History Torsemide [Demadex] 40 mg PO DAILY 07/26/20 07/26/20 History metFORMIN HCL [Glucophage] 500 mg PO DAILY 07/26/20 07/26/20 History rOPINIRole HCL [Requip] 3 mg PO HS 07/26/20 07/26/20 History Allergies Allergy/AdvReac Type Severity Reaction Status Date / Time No Known Allergies Allergy Verified 03/19/19 14:11 Surgical - Exam Vital Signs Temp Pulse Resp BP Pulse Ox 98.5 F 133 H 28 H 128/94 89 L 07/26/20 09:40 07/26/20 09:40 07/26/20 09:40 07/26/20 09:40 07/26/20 09:40 General appearance: The patient is alert, oriented, morbidly obese, appears in no acute distress. HET: Head is normocephalic and atraumatic. Pupils are equal and reactive. Oropharynx is clear without lesions. Neck: Supple without lymphadenopathy. Trachea midline. Heart: S1 S2. Regular rate and rhythm. Lungs: Clear to auscultation with some bilateral wheezing Abdomen: Soft, nontender, nondistended. Morbidly obese. Extremities: Normal skin color and turgor. No cyanosis, rash, ulceration, clubbing, or edema. Radial and pedal pulses are 2/4 bilaterally. Neurological: No focal deficits. Strength and sensation are grossly intact. Results CT angiogram of the chest which showed a large bilateral pulmonary acute embolism with involvement of the right and left main pulmonary arteries. There is extension into the secondary distal branches compatible with large burden of acute bilateral pulmonary embolism and right ventricle strain area small pleural effusion with areas of consolidation and groundglass opacification correlate for pneumonitis. A peripheral based area of consolidation left lower lobe could represent pulmonary infarct. - Labs 07/26/20 09:57 07/26/20 09:57 Abnormal Lab Results - Last 24 Hours (Table) 07/26/20 07/26/20 07/26/20 Range/Units 09:57 09:57 09:57 WBC 14.2 H (3.8-10.6) k/uL RBC 5.50 H (3.80-5.40) m/uL MCH 24.9 L (25.0-35.0) pg MCHC 30.4 L (31.0-37.0) g/dL RDW 21.7 H (11.5-15.5) % Neutrophils # 10.9 H (1.3-7.7) k/uL APTT 20.1 L (22.0-30.0) sec D-Dimer 4.53 H (<0.60) mg/L FEU Glucose 169 H (74-99) mg/dL Plasma Lactic Acid Frank (0.7-2.0) mmol/L AST 39 H (14-36) U/L ALT 53 H (4-34) U/L Total Protein 5.9 L (6.3-8.2) g/dL 07/26/20 Range/Units 09:57 WBC (3.8-10.6) k/uL RBC (3.80-5.40) m/uL MCH (25.0-35.0) pg MCHC (31.0-37.0) g/dL RDW (11.5-15.5) % Neutrophils # (1.3-7.7) k/uL APTT (22.0-30.0) sec D-Dimer (<0.60) mg/L FEU Glucose (74-99) mg/dL Plasma Lactic Acid Frank 2.9 H* (0.7-2.0) mmol/L AST (14-36) U/L ALT (4-34) U/L Total Protein (6.3-8.2) g/dL Diabetes panel 07/26/20 Range/Units 09:57 Sodium 137 (137-145) mmol/L Potassium 4.3 (3.5-5.1) mmol/L Chloride 103 (98-107) mmol/L Carbon Dioxide 25 (22-30) mmol/L BUN 12 (7-17) mg/dL Creatinine 0.84 (0.52-1.04) mg/dL Glucose 169 H (74-99) mg/dL Calcium 8.6 (8.4-10.2) mg/dL AST 39 H (14-36) U/L ALT 53 H (4-34) U/L Alkaline Phosphatase 105 (38-126) U/L Total Protein 5.9 L (6.3-8.2) g/dL Albumin 3.7 (3.5-5.0) g/dL Calcium panel 07/26/20 Range/Units 09:57 Calcium 8.6 (8.4-10.2) mg/dL Albumin 3.7 (3.5-5.0) g/dL Pituitary panel 07/26/20 Range/Units 09:57 Sodium 137 (137-145) mmol/L Potassium 4.3 (3.5-5.1) mmol/L Chloride 103 (98-107) mmol/L Carbon Dioxide 25 (22-30) mmol/L BUN 12 (7-17) mg/dL Creatinine 0.84 (0.52-1.04) mg/dL Glucose 169 H (74-99) mg/dL Calcium 8.6 (8.4-10.2) mg/dL Adrenal panel 07/26/20 Range/Units 09:57 Sodium 137 (137-145) mmol/L Potassium 4.3 (3.5-5.1) mmol/L Chloride 103 (98-107) mmol/L Carbon Dioxide 25 (22-30) mmol/L BUN 12 (7-17) mg/dL Creatinine 0.84 (0.52-1.04) mg/dL Glucose 169 H (74-99) mg/dL Calcium 8.6 (8.4-10.2) mg/dL Total Bilirubin 1.0 (0.2-1.3) mg/dL AST 39 H (14-36) U/L ALT 53 H (4-34) U/L Alkaline Phosphatase 105 (38-126) U/L Total Protein 5.9 L (6.3-8.2) g/dL Albumin 3.7 (3.5-5.0) g/dL Assessment and Plan Assessment: 1. Bilateral pulmonary embolism 2. Morbid obesity 3. History of COPD 4. Tobacco abuse Plan: 1. Continue IV heparin drip 2. Dr. Santa [address] angiogram 3. Echocardiogram ordered, await findings 4. Further recommendations to follow Thank you for this consultation, we will continue to follow The impression and plan of care has been dictated as directed. I performed a history and examination of this patient, discussed the same with the dictator. I agree with the dictator's note ,documented as a scribe. Any additional findings or plans will be noted.
[2020-07-26] MEDS: IPRATROPIUM-ALBUTEROL 3 ML NEB INHALATION PRN ×2 (16:42→21:02)
--- NOTE | 2020-07-26 17:59 | ECHOF ---
Referral Reason:Bilateral PE with heart strain on CAT scan MEASUREMENTS -------- HEIGHT: 152.4 cm WEIGHT: 158.8 kg BP: RVIDd: 4.0 cm (< 3.3) IVSd: 1.0 cm (0.6 - 1.1) LVIDd: 3.9 cm (3.9 - 5.3) LVPWd: 1.3 cm (0.6 - 1.1) IVSs: 1.3 cm LVIDs: 2.9 cm LVPWs: 1.4 cm MV E Gavin: 0.58 m/s MV DecT: 210 ms MV A Gavin: 0.80 m/s MV E/A Ratio: 0.73 RAP: 5.00 mmHg RVSP: 37.64 mmHg FINDINGS -------- This was a technically difficult study with suboptimal views. Morbid Obesity The left ventricular size is normal. There is mild concentric left ventricular hypertrophy. Overa ll left ventricular systolic function is normal with, an EF between 55 - 60 %. The right ventricle is moderately enlarged. Paradoxical motion of the right ventricular septum is c onsistent with right ventricular overload and/or elevated right ventricular end-diastolic pressure. The left atrium was not well visualized. The right atrium was not well visualized. The aortic valve was not well visualized. The mitral valve was not well visualized. Mild tricuspid regurgitation present. There is mild pulmonary hypertension. The right ventricular systolic pressure, as measured by Doppler, is 37.64mmHg. The pulmonic valve was not well visualized. The aortic root size is normal. IVC Not well visulized. There is no pericardial effusion. CONCLUSIONS -------- 1. The left ventricular size is normal. 2. There is mild concentric left ventricular hypertrophy. 3. Overall left ventricular systolic function is normal with, an EF between 55 - 60 %. 4. The right ventricle is moderately enlarged. 5. Paradoxical motion of the right ventricular septum is consistent with right ventricular overload a nd/or elevated right ventricular end-diastolic pressure. 6. Mild tricuspid regurgitation present. 7. There is mild pulmonary hypertension. 8. The right ventricular systolic pressure, as measured by Doppler, is 37.64mmHg. 9. There is no pericardial effusion. [employer]: Rox Kat RDCS
--- NOTE | 2020-07-26 22:23 | HP ---
HISTORY AND PHYSICAL DATE OF SERVICE: 07/26/2020. CHIEF COMPLAINT: Shortness of breath. HISTORY OF PRESENT ILLNESS: This 40-year-old woman with a past history of asthma, COPD, GERD, DJD, history of rheumatoid arthritis, being followed by Dr. Mirtha Bedoya in the outpatient setting is complaining of increasing shortness of breath for the last 4 days. The patient had difficulty in ambulation and the patient also had some left upper quadrant pain and the patient had no fever, chills, rigors, at this time. The patient was seen by primary physician and sent to the emergency room. D-dimer was elevated. CT of the chest showed bilateral extensive pulmonary embolism and the patient admitted to the hospital for further evaluation and treatment. IV heparin was initiated. Evaluation by Dr. Santa, vascular surgeon, as well as Dr. Gillis is undergoing. There is no history of fever, rigors, chills at this time. Covid 19 was negative. Lactic acid elevated to 2.3. PAST MEDICAL HISTORY: Asthma, COPD, GERD, DJD. MEDICATIONS: Home medications are: Requip, Glucophage, Depo-Provera, Demadex, Beatriz, Lyrica, KCl, Prilosec, methotrexate, bronchodilators. Doses reviewed. ALLERGIES: None. FAMILY HISTORY: No history of any heart disease or strokes in the family. SOCIAL HISTORY: History of smoking. History of THC. REVIEW OF SYSTEMS: ENT: No diminished vision. No diminished hearing. CARDIOVASCULAR system as mentioned earlier. RESPIRATORY: As mentioned earlier. GI: No nausea. : No dysuria. Nervous system: No numbness, weakness. Allergy/Immunology: Asthma present. MUSCULOSKELETAL as mentioned earlier. HEMATOLOGY/ONCOLOGY: No history of anemia. ENDOCRINE: No history of diabetes or hypothyroidism. CONSTITUTIONAL: As mentioned earlier. DERMATOLOGY: Negative. RHEUMATOLOGY: Negative. PSYCHIATRY: As mentioned. PHYSICAL EXAMINATION: Patient is alert and oriented times three. Pulse is 110, blood pressure respiration 20. Extremely short of breath at rest. Temperature is 97 degrees, pulse ox 94% on 4 L. HEENT: Conjunctivae normal. Oral mucosa moist. NECK is no carotid bruit. No jugular venous distention. No lymph nodes enlargement. Cardiovascular system: S1, S2 normal. No S3, no S4. RESPIRATORY: Breath sounds diminished in the bases. A few scattered rhonchi and crackles. ABDOMEN: Soft, nontender. No mass palpable. LEGS: Minimal bilateral leg edema. Nervous system: Higher functions as mentioned earlier. Moves all 4 limbs. No focal motor or sensory deficits. Lymphatics: No lymph nodes palpable in the neck, axillae or groin. Skin: No ulcer, rashes or bleeding. JOINTS: No active deforming arthropathy. LABS: At this time shows: WBC 14.2, hemoglobin 13.7, and D-dimer is 4.53. Lactic acid 2.3. AST is 30 and ALT is 53. ASSESSMENT: 1. Shortness of breath, acute bilateral pulmonary embolism with acute hypoxic respiratory failure. Possible acute cor pulmonale. 2. Increased WBC. 3. Elevated D-dimer. 4. Elevated lactic acid. 5. Elevated AST/ALT. 6. History of asthma, chronic obstructive pulmonary disease. 7. Gastroesophageal reflux disease. 8. History of degenerative joint disease. 9. History of rheumatoid arthritis. 10.History of cholecystectomy. 11.History of anxiety, depression, PTSD. 12.History of nicotine dependence. 13.Super morbid obesity with body mass index of 68.4. RECOMMENDATIONS AND DISCUSSION: In this 40-year-old woman who presented with multiple complex medical issues, we will monitor the patient closely, continue the current medications, management and symptomatic treatment. Continue with IV heparin. I would also recommend vascular surgery consultation as well as the pulmonary consultation regarding the abnormal 2D echo. The patient had extensive clot burden at this time. Overall prognosis guarded and prognosis guarded. Further recommendations to follow. D-dimer is elevated. Plasma lactic was also elevated. Repeat labs will be ordered. Home medications will be continued. A copy of this dictation is being forwarded to Dr. Mirtha Bedoya who is the primary physician. MMODL / IJN: [id number] / [facility]
[2020-07-27] MEDS ORDERED: PREGABALIN 100 MG CAP PO STA (00:22)
[2020-07-27] MEDS: HEPARIN SOD,PORK IN 0.45% NACL 25,000 UNIT in 0.45% NACL 1 250ML.BAG IV SCH ×3 (00:33→18:51)
[2020-07-27] MEDS: ACETAMINOPHEN TAB 325 MG TAB PO PRN (00:37)
[2020-07-27] MEDS: AMITRIPTYLINE HCL 50 MG TAB PO SCH ×2 (02:33→21:41)
[2020-07-27] MEDS: IPRATROPIUM-ALBUTEROL 3 ML NEB INHALATION PRN (07:23)
[2020-07-27 08:26] LABS: African American GFR (CKD) >90 (>60 ml/min/1.73 sqM); Anion Gap 6 mmol/L; Carbon Dioxide 29 mmol/L (22-30); Chloride 104 mmol/L (98-107); Glucose 154 mg/dL (74-99); Non-African American GFR(CKD) >90 (>60 ml/min/1.73 sqM); Potassium 4.2 mmol/L (3.5-5.1); Sodium 139 mmol/L (137-145)
[2020-07-27 08:27] LABS: Blood Urea Nitrogen 16 mg/dL (7-17); Calcium 8.3 mg/dL (8.4-10.2)
[2020-07-27 08:38] LABS: Anisocytosis Moderate; Basophils % (A) 0 %; Eosinophils % (A) 0 %; HCT 43.6 % (34.0-46.0); HGB 12.9 gm/dL (11.4-16.0); Hypochromasia Marked; Lymphocytes # (A) 2.5 k/uL (1.0-4.8); Lymphocytes % (A) 11 %; MCH 24.6 pg (25.0-35.0); MCHC 29.6 g/dL (31.0-37.0); MCV 83.2 fL (80.0-100.0); Mean Platelet Volume 11.7; Microcytosis Slight; Monocytes # (A) 0.5 k/uL (0-1.0); Monocytes % (A) 2 %; Neutrophils # (A) 20.2 k/uL (1.3-7.7); Neutrophils % (A) 87 %; Platelet Count 229 k/uL (150-450); Poikilocytosis Slight; RBC 5.24 m/uL (3.80-5.40); RDW 21.6 % (11.5-15.5); WBC 23.4 k/uL (3.8-10.6)
[2020-07-27] MEDS ORDERED: ALTEPLASE 10 MG in SODIUM CHLORIDE 0.9% 100 ML IV ONE ×4 (08:50)
[2020-07-27 09:24] LABS: INR 1.1 (<1.2); Prothrombin Time 11.5 sec (9.0-12.0)
--- NOTE | 2020-07-27 12:14 | P.CNPUL ---
History of Present Illness Consult date: 07/27/20 Requesting physician: Jonathan Medina Reason for consult: dyspnea, abnormal CXR/CT Chief complaint: Shortness of breath History of present illness: This is a very pleasant 40-year-old female patient who follows with Carmen Bedoya is her primary care provider. She has a history of morbid obesity, depression, rheumatoid arthritis, migraines, chronic lower extremity edema, former smoker, marijuana use diabetes mellitus, also receiving Depo-Provera injections every 3 months. She presented to the emergency room yesterday with complaints of increasing shortness of breath. She utilized home breathing treatments without much improvement. Chest x-ray revealed possible left lower lobe pneumonia. CT angiogram reveals a large bilateral pulmonary Embolism with involvement of the right and left main pulmonary arteries. There is extension in the second and distal branches compatible with large burden an acute bilateral pulmonary embolism with right ventricular strain. Echocardiogram re veals preserved left ventricular systolic function. The right ventricle is moderately enlarged. Paradoxical motion of the right ventricular septum is consistent with right ventricular overload and/or elevated right ventricular end-diastolic pressure. She is seen today in the emergency room in [facility]. She is currently awake and alert. No acute distress. Maintaining O2 saturations in the 90s on 4 L/m per nasal cannula. EKG revealing sinus tachycardia. BP stable. White count 23.4. Hemoglobin 12.9. Platelets 229. D-dimer 4.53. Fibrinogen 511. INR 1.1. Sodium 139. Potassium 4.2. Creatinine 0.72. ProBNP 4690. [place] virus not detected. 0.9 normal saline at 130 ML's per hour. Vascular surgery has been consulted for possible EKOS. She is currently on a heparin drip. Review of Systems REVIEW OF SYSTEMS: CONSTITUTIONAL: Denies any recent significant weight loss or weight gain. EYES: Denies change in vision. EARS, NOSE, MOUTH, THROAT: Denies headaches, denies sore throat. CARDIOVASCULAR: Denies chest pain, palpitations or syncopal episodes. RESPIRATORY: Positive for shortness of breath, no cough, congestion or hemoptysis. GASTROINTESTINAL: Denies change in appetite, denies abdominal pain GENITOURINARY: Denies hematuria, denies infections. MUSKULOSKELETAL: Denies pain, denies swelling. INTEGUMENTARY: Denies rash, denies eczema. NEUROLOGICAL: Denies recent memory loss, no recent seizure activity. PSYCHIATRIC: Denies anxiety, denies depression. HEMATOLOGIC/LYMPHATIC: Denies anemia, denies enlarged lymph nodes. Past Medical History Past Medical History: Asthma, COPD, GERD/Reflux, Osteoarthritis (OA), Rheumatoid Arthritis (RA) Additional Past Medical History / Comment(s): migraines, edema celia ankles, History of Any Multi-Drug Resistant Organisms: None Reported Past Surgical History: Cholecystectomy, Hernia Repair Additional Past Surgical History / Comment(s): oral surgery, Past Anesthesia/Blood Transfusion Reactions: No Reported Reaction Past Psychological History: Anxiety, Depression, PTSD Additional Psychological History / Comment(s): personality disorder Smoking Status: Current some day smoker Past Alcohol Use History: None Reported Additional Past Alcohol Use History / Comment(s): smokes 1 PPD since 1986 Past Drug Use History: Marijuana - Past Family History Mother Family Medical History: No Reported History Medications and Allergies Home Medications Medication Instructions Recorded Confirmed Type Amitriptyline HCl [Elavil] 150 mg PO HS 02/20/19 07/26/20 History DULoxetine HCL [Cymbalta] 60 mg PO DAILY 02/20/19 07/26/20 History Folic Acid 1 mg PO DAILY 02/20/19 07/26/20 History Hydrocodone/Acetaminophen [[place] 1 tab PO BID PRN 02/20/19 07/26/20 History 7.5-325] Methotrexate/Pf [Rasuvo 25 mg/0.5 25 mg SQ SA 02/20/19 07/26/20 History ml Autoinj] Omeprazole [PriLOSEC] 20 mg PO AC-BRKFST 02/20/19 07/26/20 History Pregabalin [Lyrica] 300 mg PO BID 02/20/19 07/26/20 History medroxyPROGESTERone [Depo-Provera] 150 mg IM Q90D 02/20/19 07/26/20 History Artificial Tears-Hypromellose 1 drops BOTH EYES TID PRN 03/19/19 07/26/20 History [Artificial Tear Drops] Potassium Chloride 10 meq PO DAILY 03/19/19 07/26/20 History Albuterol Inhaler [Ventolin Hfa 2 puff INHALATION RT-Q4H PRN 07/26/20 07/26/20 History Inhaler] Cholecalciferol [Vitamin D3 (25 50 mcg PO DAILY 07/26/20 07/26/20 History Mcg = 1000 Iu)] Diclofenac Sodium Gel [Voltaren 2 gm TOPICAL TID 07/26/20 07/26/20 History Gel] Ipratropium-Albuterol Nebulize 3 ml INHALATION RT-QID 07/26/20 07/26/20 History [Duoneb 0.5 mg-3 mg/3 ml Soln] Loratadine [Claritin] 10 mg PO DAILY 07/26/20 07/26/20 History Sarilumab [Kevzara] 200 mg SQ Q14D 07/26/20 07/26/20 History Torsemide [Demadex] 40 mg PO DAILY 07/26/20 07/26/20 History metFORMIN HCL [Glucophage] 500 mg PO DAILY 07/26/20 07/26/20 History rOPINIRole HCL [Requip] 3 mg PO HS 07/26/20 07/26/20 History Allergies Allergy/AdvReac Type Severity Reaction Status Date / Time No Known Allergies Allergy Verified 03/19/19 14:11 Physical Exam Vitals: Vital Signs Temp Pulse Pulse Resp BP BP Pulse Ox 07/27/20 10:44 106 H 16 140/98 94 L 07/27/20 08:31 106 H 16 140/98 94 L 07/27/20 07:32 105 H 20 07/27/20 07:23 105 H 20 95 07/27/20 06:18 97 F L 102 H 18 93 L 07/27/20 04:00 107 H 20 144/97 93 L 07/27/20 02:35 105 H 20 130/91 93 L 07/26/20 23:51 113 H 22 133/75 91 L 07/26/20 21:15 112 H 07/26/20 21:03 111 H 07/26/20 19:25 98.3 F 111 H 20 130/81 93 L 07/26/20 16:51 112 H 07/26/20 16:44 110 H 07/26/20 15:36 97.0 F L 110 H 20 140/89 95 07/26/20 14:46 112 H 18 132/93 97 07/26/20 13:00 112 H 20 127/90 95 Intake and Output 07/26/20 07/27/20 07/27/20 22:59 06:59 14:59 Intake Total 23 250 208.715 Balance 23 250 208.715 Intake: Intake, IV Titration 23 250 208.715 Amount Heparin Sod,Pork in 0.45% 23 250 208.715 NaCl 25,000 unit In 0.45 % NaCl 1 250ml.bag @ 14.5 UNITS/KG/HR 23.02 mls/hr IV .[id number] [facility] Rx#: [id number] Other: Voiding Method External Catheter Weight 158.757 kg GENERAL EXAM: Alert, pleasant, morbidly obese 40-year-old female patient, on 4 L nasal cannula, comfortable in no apparent distress. HEAD: Normocephalic. EYES: Normal reaction of pupils, equal size. NOSE: Clear with pink turbinates. THROAT: No erythema or exudates. NECK: No masses, no JVD. CHEST: No chest wall deformity. LUNGS: Equal air entry with no crackles, wheeze, rhonchi or dullness. CVS: S1 and S2 normal with crackles in the left base, diminished. ABDOMEN: No hepatosplenomegaly, normal bowel sounds, no guarding or rigidity. SPINE: No scoliosis or deformity SKIN: No rashes CENTRAL NERVOUS SYSTEM: No focal deficits, tone is normal in all 4 extremities. EXTREMITIES: There is trace peripheral edema. No clubbing, no cyanosis. Peripheral pulses are intact. Results - Laboratory Findings CBC and BMP: 07/27/20 07:47 07/27/20 07:47 PT/INR, D-dimer PT 11.5 sec (9.0-12.0) 07/27/20 07:47 INR 1.1 (<1.2) 07/27/20 07:47 D-Dimer 4.53 mg/L FEU (<0.60) H 07/26/20 09:57 Abnormal lab findings: Abnormal Labs 07/26/20 07/26/20 07/26/20 09:57 09:57 09:57 WBC 14.2 H RBC 5.50 H MCH 24.9 L MCHC 30.4 L RDW 21.7 H Neutrophils # 10.9 H APTT 20.1 L Fibrinogen D-Dimer 4.53 H Glucose 169 H Plasma Lactic Acid Frank Calcium AST 39 H ALT 53 H Total Protein 5.9 L 07/26/20 07/26/20 07/27/20 09:57 17:34 07:47 WBC 23.4 H RBC MCH 24.6 L MCHC 29.6 L RDW 21.6 H Neutrophils # APTT 50.2 H Fibrinogen D-Dimer Glucose Plasma Lactic Acid Frank 2.9 H* Calcium AST ALT Total Protein 07/27/20 07/27/20 07/27/20 07:47 07:47 07:47 WBC RBC MCH MCHC RDW Neutrophils # APTT 37.0 H Fibrinogen 511 H D-Dimer Glucose 154 H Plasma Lactic Acid Frank Calcium 8.3 L AST ALT Total Protein - Diagnostic Findings Chest x-ray: image reviewed CT scan - chest: image reviewed Assessment and Plan Assessment: 1 Acute hypoxemic respiratory failure secondary to large bilateral pulmonary acute embolism with involvement of the right and left main pulmonary arteries. There is extension into the secondary and distal branches compatible with large burden and acute bilateral pulmonary embolism with right ventricular strain. Echocardiogram reveals moderately enlarged right ventricle. Paradoxical motion the right ventricular septum is consistent with right ventricular overload and/or elevated right ventricular end diastolic pressure. Currently hemodynamically stable. On a heparin drip. 2 Leukocytosis, probable reactive 3 Morbid obesity with a BMI of 68.4 kg/m2 4 History of depression 5 Diabetes mellitus, type II 6 Rheumatoid arthritis 7 Chronic lower extremity edema 8 History of COPD/asthma 9 Former smoker Plan: The patient was seen and evaluated by Dr. Gillis Chest x-ray, CAT scans and labs reviewed Echocardiogram reviewed Vascular consulted, EKOS versus alteplase Titrate the FiO2 as tolerated Continue to monitor hemodynamics We will continue to follow and make further recommendations based on her clinical status I, the cosigning physician, performed a history & physical examination of the patient. Lungs sounds with crackles in the left base. Maintaining good O2 saturations in the 90s on 4 L/m per nasal cannula. I discussed the assessment and plan of care with my nurse practitioner, Tiffanie Landrum. I attest to the above consultation as dictated by her. Time with Patient: Greater than 30
[2020-07-27] MEDS ORDERED: cefTRIAXone 1,000 MG VIAL (IM USE) IM SCH (15:00)
[2020-07-27 15:29] LABS: Large Platelets Present; Polychromasia Present
--- NOTE | 2020-07-27 15:40 | XR ---
EXAMINATION TYPE: XR chest 1V portable DATE OF EXAM: 07/27/2020 COMPARISON: 07/26/2020 HISTORY: Shortness of breath TECHNIQUE: Single frontal view of the chest is obtained. FINDINGS: There is no focal air space opacity, pleural effusion, or pneumothorax seen. The cardiac silhouette size is within normal limits. The osseous structures are intact. Mildly coarsened inters titium may be related to reduced inspiration. Heart is enlarged and there is mild hyperinflation. Carlos cified nodule left upper lobe compatible with reported granuloma IMPRESSION: 1. Cardiomegaly with subsegmental left basilar atelectasis or infiltrate similar appearance to the pr ior exam. Pulmonary infarct also the differential given the presence of pulmonary emboli. Findings ma y be slightly improved. 2. Coarsened interstitium stable may be on the basis of chronic lung disease.
[2020-07-27] MEDS: IPRATROPIUM-ALBUTEROL 3 ML NEB INHALATION SCH ×2 (16:14→20:57)
--- NOTE | 2020-07-27 16:15 | US ---
EXAMINATION TYPE: US venous doppler duplex [facility] DATE OF EXAM: 07/27/2020 3:56 PM COMPARISON: 04/17/2018 CLINICAL HISTORY: dvt, bed side. Recently diagnosed with PE SIDE PERFORMED: bilateral TECHNIQUE: The lower examined utilizing real time linear array sonography with graded compression, d oppler sonography and color-flow sonography. VESSELS IMAGED: Common Femoral Vein Deep Femoral Vein Greater Saphenous Vein * Femoral Vein Popliteal Vein Small Saphenous Vein * Proximal Calf Veins (* superficial vessels) Right Leg: extreme technical limitations due to patient's body habitus - 5'0" and 350 pounds. Unable to visualize CFV, Deep Femoral vein due to large hard panis. No evidence of DVT as visualized Left Leg: extreme technical limitations due to patient's body habitus - 5'0" and 350 pounds. Unable to visualize CFV, Deep Femoral vein due to large hard panis. Findings appear positive for acute DVT l eft femoral vein mid extending into popliteal vein. IMPRESSION: 1. The study is extremely limited due to technical issues. The patient's large body habitus limited e valuation. Technologist was unable to visualize the common femoral vein, deep femoral vein bilaterall y. 2. Positive deep venous thrombosis in the left femoral vein from the midportion extending into the le ft popliteal vein. 3. No evidence of right lower extremity deep venous thrombosis.
--- NOTE | 2020-07-27 16:48 | PN ---
PROGRESS NOTE DATE OF SERVICE: 07/27/2020 This 40-year-old woman was admitted with acute bilateral pulmonary embolism and acute right cor pulmonale, also ventricular strain pattern on the 2D echo. The patient being closely monitored. Patient started on IV heparin at this time. Vascular surgery and pulmonary following the patient closely. The patient also possibly had asthma, COPD exacerbation as well. The patient being closely monitored. PAST MEDICAL HISTORY: Reviewed. REVIEW OF SYSTEMS: CARDIOVASCULAR system: As mentioned earlier. RESPIRATORY: As mentioned earlier. GI no nausea or vomiting. : No dysuria. NERVOUS SYSTEM: No numbness or weakness. CURRENT MEDICATIONS: Reviewed and include: Tylenol, DuoNeb, alteplase, Elavil, Solu-Medrol, Requip, doses reviewed. PHYSICAL EXAMINATION: Patient is alert and oriented times three. Pulse 98, blood pressure 124/91, respiration 18, temperature is normal. Pulse ox 98% on 3 L. HEENT: Conjunctivae normal. NECK: No JVD. CARDIOVASCULAR: S1, S2 muffled. RESPIRATION: Breath sounds diminished in the bases. A few scattered rhonchi and crackles. ABDOMEN: Soft, obese, nontender. NERVOUS SYSTEM: Higher functions as mentioned. Moves all four limbs. No focal deficits. LYMPHATICS: No lymph nodes palpable in the neck, axillae or groin. SKIN: No ulcer, rashes or bleeding. JOINTS: No active deforming arthropathy. LAB STUDIES: WBC hemoglobin 12.9. ASSESSMENT: 1. Shortness of breath, acute bilateral pulmonary embolism with acute hypoxic respiratory failure with possible acute cor pulmonale on alteplase and IV heparin. 2. IV heparin drip. 3. Increased WBC. 4. Elevated D-dimer. 5. Possibly asthma, chronic obstructive pulmonary disease acute exacerbation. 6. Elevated lactic acid. 7. Increased AST/ALT. 8. Gastroesophageal reflux disease. 9. History of degenerative joint disease. 10.History of rheumatoid arthritis. 11.History of cholecystectomy. 12.Anxiety, depression, PTSD. 13.History of nicotine dependence. 14.Super morbid obesity, body mass index 68.4. 15.FULL CODE. RECOMMENDATIONS AND DISCUSSION: I recommend to continue current medications, management and symptomatic treatment. Continue with IV heparin. Continue with empiric antibiotics. I would also recommend serum procalcitonin. Other than that, UA with micro. Continue with heparin. D-dimer is elevated. I would also recommend ultrasound of the leg. Prognosis guarded. See orders for details. Short course of IV steroids. Further recommendations to follow. MMODL / IJN: [id number] /
[2020-07-27] MEDS ORDERED: IV FLUID CONTINUATION 200 ML IV ONE (16:50)
[2020-07-27] MEDS ORDERED: LIDOCAINE 1% INJ 10MG/ML (20 ML MDV) SQ ONE (17:01)
[2020-07-27] MEDS ORDERED: MIDAZOLAM 2 MG/2 ML VIAL IV ONE (17:11)
[2020-07-27] MEDS: MIDAZOLAM 2 MG/2 ML VIAL IV ONE ×2 (17:14→17:18)
[2020-07-27] MEDS: fentaNYL (PF) 50 MCG/ML 2 ML AMP IV ONE ×2 (17:14→17:40)
--- NOTE | 2020-07-27 17:50 | P.OP ---
Date of Procedure: 07/27/20 Description of Procedure: Preoperative diagnosis: Submassive bilateral pulmonary emboli Postoperative diagnosis: Same Procedure: #1 ultrasound-guided right common femoral vein access of central venous catheters x2 #2 bilateral selective pulmonary angiogram #3 Initiation of pulmonary pharmacal mechanical thrombolysis with EKOS #4 Moderate conscious sedation x 33 minutes[] Surgeon: Briana Prajapati D.O. EBL: Less than 10 mL IV fluids: See records Urine output: See records Drains: None Complications: None immediately apparent Condition: Stable to ICU Operative indication and findings: [The patient is a 40-year-old female with new onset of significant shortness of breath with exertion. She underwent workup and evaluation is found to have significant bilateral pulmonary emboli with evidence of right heart strain on computed tomography scan as well as on the ultrasound. Risks and benefits of going forward with thrombolytics therapy were discussed. She seemingly understood and was willing to proceed as such.] Procedure in detail: [The patient was taken to the radiology suite and placed in supine position. Given her significantly large pannus a retraction system was placed. Bilateral groins are prepped and draped in usual sterile fashion. A preprocedure timeout was performed, all parties were in agreement. The right common femoral vein was identified and found to be compressible without any evidence of visible thrombus. The skin overlying was anesthetized 1% lidocaine plain. A multipurpose needle was used and the vein was accessed and a wire was placed. This was done again through a separate access site. 2, 6-Djiboutian sheaths were placed. Again given her size and obesity long 6-D[place]ib[place]ian sheaths were used. Using catheters and wires the right and left pulmonary arteries were accessed. Pulmonic angiograms were performed confirming positioning. An EKOS ultrasonic pharmacomechanical infusion catheter was placed and confirmed appropriate positioning within the pulmonary arteries. The catheters were hooked up to appropriate fluid infusions for the [place] II protocol for submassive pulmonary emboli. The sheaths were sutured in place. Dressing was placed. The patient was transferred back to ICU in stable condition having tolerated the procedure well.
[2020-07-27 18:11] LABS: Glucose,Whole Blood 121 mg/dL (75-99)
[2020-07-27] MEDS ORDERED: NALOXONE 0.4 MG/ML 1 ML VIAL IV PRN (18:32)
[2020-07-27] MEDS: SODIUM CHLORIDE 0.9% 1,000 ML IV SCH ×2 (18:52)
[2020-07-27] MEDS: INSULIN ASPART (NovoLOG) 100 UNIT/ML VIAL SQ SCH ×2 (18:52→19:53)
[2020-07-27] MEDS: methylPREDNISolone SOD SUCCI 125 MG/2 ML VIAL IV SCH ×2 (18:57→21:04)
[2020-07-27 19:53] LABS: Glucose,Whole Blood 129 mg/dL (75-99)
[2020-07-28 01:16] LABS: Anisocytosis Moderate; Basophils % (A) 0 %; Eosinophils % (A) 0 %; HCT 44.3 % (34.0-46.0); HGB 12.9 gm/dL (11.4-16.0); Hypochromasia Marked; Lymphocytes # (A) 1.6 k/uL (1.0-4.8); Lymphocytes % (A) 8 %; MCH 24.7 pg (25.0-35.0); MCV 85.1 fL (80.0-100.0); Mean Platelet Volume 10.9; Microcytosis Slight; Monocytes # (A) 0.3 k/uL (0-1.0); Monocytes % (A) 2 %; Neutrophils # (A) 17.7 k/uL (1.3-7.7); Neutrophils % (A) 90 %; Platelet Count 218 k/uL (150-450); Poikilocytosis Slight; RDW 22.1 % (11.5-15.5); WBC 19.6 k/uL (3.8-10.6)
[2020-07-28 01:48] LABS: Partial Thromboplastin Time 19.4 sec (22.0-30.0)
[2020-07-28] MEDS: methylPREDNISolone SOD SUCCI 125 MG/2 ML VIAL IV SCH ×2 (04:20→08:02)
[2020-07-28 06:37] LABS: Glucose,Whole Blood 196 mg/dL (75-99)
[2020-07-28] MEDS: INSULIN ASPART (NovoLOG) 100 UNIT/ML VIAL SQ SCH ×4 (06:38→21:08)
[2020-07-28] MEDS: IPRATROPIUM-ALBUTEROL 3 ML NEB INHALATION SCH ×3 (06:58→16:28)
[2020-07-28 07:47] LABS: Anisocytosis Moderate; Basophils % (A) 0 %; Eosinophils % (A) 0 %; HGB 12.6 gm/dL (11.4-16.0); Hypochromasia Marked; Lymphocytes # (A) 1.5 k/uL (1.0-4.8); Lymphocytes % (A) 9 %; MCH 25.9 pg (25.0-35.0); MCHC 30.7 g/dL (31.0-37.0); MCV 84.5 fL (80.0-100.0); Mean Platelet Volume 11.5; Microcytosis Slight; Monocytes # (A) 0.3 k/uL (0-1.0); Monocytes % (A) 2 %; Neutrophils # (A) 14.8 k/uL (1.3-7.7); Neutrophils % (A) 89 %; Platelet Count 209 k/uL (150-450); Poikilocytosis Slight; RBC 4.85 m/uL (3.80-5.40); RDW 21.9 % (11.5-15.5); WBC 16.6 k/uL (3.8-10.6)
[2020-07-28 08:11] LABS: African American GFR (CKD) >90 (>60 ml/min/1.73 sqM); Anion Gap 8 mmol/L; Blood Urea Nitrogen 21 mg/dL (7-17); Calcium 8.2 mg/dL (8.4-10.2); Carbon Dioxide 27 mmol/L (22-30); Chloride 103 mmol/L (98-107); Glucose 182 mg/dL (74-99); Non-African American GFR(CKD) >90 (>60 ml/min/1.73 sqM); Potassium 4.9 mmol/L (3.5-5.1); Sodium 138 mmol/L (137-145)
[2020-07-28] MEDS: APIXABAN 5 MG TAB PO SCH ×2 (09:38→19:48)
--- NOTE | 2020-07-28 11:23 | P.PN ---
Subjective Progress Note Date: 07/28/20 Principal diagnosis: Submassive bilateral Pulmonary emboli The patient was seen and examined lying in bed in the ICU. She is status post initiation of pulmonary pharmacal mechanical thrombolysis with EKOS. She states she has feeling somewhat better this morning. However her oxygenation is running between 90% to 93% on 3 L of high flow nasal cannula. Patient denies any history of obstructive sleep apnea or use of BiPAP for sleeping. No acute changes through the night, no signs of bleeding. Objective - Vital Signs Vital signs: Vital Signs Temp 97.6 F 07/28/20 04:00 Pulse 107 H 07/28/20 08:30 Resp 21 07/28/20 08:30 BP 114/84 07/28/20 08:30 Pulse Ox 90 L 07/28/20 08:30 Intake & Output 07/27/20 07/28/20 07/28/20 18:59 06:59 18:59 Intake Total 560.459 6837 125 Output Total 125 565 65 Balance 979.869 1131 60 Weight 158.757 kg 177.7 kg Intake: IV 245 1830 125 .9 75 920 55 left port 35 455 35 right port 35 455 35 Intake, IV Titration 208.715 13 Amount Heparin Sod,Pork in 0.45% 208.715 NaCl 25,000 unit In 0.45 % NaCl 1 250ml.bag @ 14.5 UNITS/KG/HR 23.02 mls/hr IV .[id number] PATY Rx#: [id number] Heparin Sod,Pork in 0.45% 13 NaCl 25,000 unit In 0.45 % NaCl 1 250ml.bag @ 2.5 mls/hr IV .Q24H PATY Rx#: [id number] Output: Urine 125 565 65 Other: Voiding Method External Catheter Indwelling Catheter Indwelling Catheter - Exam General appearance: The patient is alert, oriented, appears in no acute distress. Morbidly obese HET: Head is normocephalic and atraumatic. Neck: Supple without lymphadenopathy. Trachea midline. Heart: S1 S2. Regular rate and rhythm. Lungs: Clear to auscultation. No crackles or wheezes are heard. Abdomen: Soft, nontender, nondistended. Extremities: Normal skin color and turgor. Right groin with sheath intact, catheters discontinued. Neurological: No focal deficits. Strength and sensation are grossly intact. - Labs CBC & Chem 7: 07/28/20 06:25 07/28/20 06:25 Labs: Abnormal Lab Results - Last 24 Hours (Table) 07/27/20 07/27/20 07/27/20 Range/Units 07:47 07:47 16:11 WBC (3.8-10.6) k/uL MCH (25.0-35.0) pg MCHC (31.0-37.0) g/dL RDW (11.5-15.5) % Neutrophils # 20.2 H (1.3-7.7) k/uL APTT 51.8 H (22.0-30.0) sec Fibrinogen 511 H (200-500) mg/dL BUN (7-17) mg/dL Glucose (74-99) mg/dL POC Glucose (mg/dL) (75-99) mg/dL Calcium (8.4-10.2) mg/dL 07/27/20 07/27/20 07/28/20 Range/Units 18:09 19:52 00:37 WBC 19.6 H (3.8-10.6) k/uL MCH 24.7 L (25.0-35.0) pg MCHC 29.0 L (31.0-37.0) g/dL RDW 22.1 H (11.5-15.5) % Neutrophils # 17.7 H (1.3-7.7) k/uL APTT (22.0-30.0) sec Fibrinogen (200-500) mg/dL BUN (7-17) mg/dL Glucose (74-99) mg/dL POC Glucose (mg/dL) 121 H 129 H (75-99) mg/dL Calcium (8.4-10.2) mg/dL 07/28/20 07/28/20 07/28/20 Range/Units 00:37 06:25 06:25 WBC 16.6 H (3.8-10.6) k/uL MCH (25.0-35.0) pg MCHC 30.7 L (31.0-37.0) g/dL RDW 21.9 H (11.5-15.5) % Neutrophils # 14.8 H (1.3-7.7) k/uL APTT 19.4 L (22.0-30.0) sec Fibrinogen (200-500) mg/dL BUN 21 H (7-17) mg/dL Glucose 182 H (74-99) mg/dL POC Glucose (mg/dL) (75-99) mg/dL Calcium 8.2 L (8.4-10.2) mg/dL 07/28/20 07/28/20 Range/Units 06:25 06:36 WBC (3.8-10.6) k/uL MCH (25.0-35.0) pg MCHC (31.0-37.0) g/dL RDW (11.5-15.5) % Neutrophils # (1.3-7.7) k/uL APTT 21.0 L (22.0-30.0) sec Fibrinogen (200-500) mg/dL BUN (7-17) mg/dL Glucose (74-99) mg/dL POC Glucose (mg/dL) 196 H (75-99) mg/dL Calcium (8.4-10.2) mg/dL Microbiology - Last 24 Hours (Table) 07/26/20 09:57 Blood Culture - Preliminary Blood No Growth after 24 hours Assessment and Plan Assessment: 1. Status post initiation of pulmonary pharmacal mechanical thrombolysis with EKOS 2. Submassive Bilateral pulmonary emboli 2. Morbid obesity 3. History of COPD 4. Tobacco abuse Plan: 1. Discontinue right groin catheter and sheath and heparin 2. Eliquis 10 mg twice a day ordered 3. Continue medical management 4. Discontinue Prajapati catheter once patient able to ambulate 5. Discuss with patient will need anticoagulation for at least 3-6 months, recommend possible outpatient hematology workup 6. Repeat echocardiogram in the next 1-3 days either inpatient if she remains hospitalized, otherwise to follow-up with cardiology for echocardiogram Thank you for this consultation, patient may be discharged home from a vascular surgical standpoint was otherwise medically stable The impression and plan of care has been dictated as directed. Dr. Prajapati I performed a history and examination of this patient, discussed the same with the dictator. I agree with the dictator's note ,documented as a scribe. Any additional findings or plans will be noted.
[2020-07-28] MEDS: HEPARIN SOD,PORK IN 0.45% NACL 25,000 UNIT in 0.45% NACL 1 250ML.BAG IV SCH ×2 (11:33→11:34)
[2020-07-28] MEDS: SODIUM CHLORIDE 0.9% 1,000 ML IV SCH ×2 (11:35)
[2020-07-28 12:06] LABS: Glucose,Whole Blood 192 mg/dL (75-99)
[2020-07-28 12:37] LABS: Partial Thromboplastin Time 21.8 sec (22.0-30.0)
--- NOTE | 2020-07-28 13:22 | P.PN ---
Subjective Progress Note Date: 07/28/20 Principal diagnosis: Acute pulmonary embolism This is a very pleasant 40-year-old female patient who follows with Carmen Bedoya is her primary care provider. She has a history of morbid obesity, depression, rheumatoid arthritis, migraines, chronic lower extremity edema, for sujey smoker, marijuana use diabetes mellitus, also receiving Depo-Provera injections every 3 months. She presented to the emergency room yesterday with complaints of increasing shortness of breath. She utilized home breathing treatments without much improvement. Chest x-ray revealed possible left lower lobe pneumonia. CT angiogram reveals a large bilateral pulmonary Embolism with involvement of the right and left main pulmonary arteries. There is extension in the second and distal branches compatible with large burden an acute bilateral pulmonary embolism with right ventricular strain. Echocardiogram reveals preserved left ventricular systolic function. The right ventricle is moderately enlarged. Paradoxical motion of the right ventricular septum is consistent with right ventricular overload and/or elevated right ventricular end-diastolic pressure. She is seen today in the emergency room in consultation. She is currently awake and alert. No acute distress. Maintaining O2 saturations in the 90s on 4 L/m per nasal cannula. EKG revealing sinus tachycardia. BP stable. White count 23.4. Hemoglobin 12.9. Platelets 229. D-dimer 4.53. Fibrinogen 511. INR 1.1. Sodium 139. Potassium 4.2. Creatinine 0.72. ProBNP 4690. [place]roy virus not detected. 0.9 normal saline at 130 ML's per hour. Vascular surgery has been consulted for possible EKOS. She is currently on a heparin drip. Patient was reevaluated today on 08/24/2020, she is down to 4 L nasal cannula, she was on 90 L yesterday. Patient is doing well, feeling much better today compared to yesterday. She underwent far bone mechanical thrombolysis with EKOS yesterday, and this was successful based on the clinical findings. Patient initially presented with submassive bilateral pulmonary emboli. She has no trigger factor except the patient is morbidly obese, her groin catheters have been removed today, patient was started on Eliquis at 10 mg twice a day. Overall the patient is doing great. Has minimal shortness of breath. No chest pain, no cough no fever no chills no hemoptysis. WBC count today is 16.6 hemoglobin is 12.6, normal electrolytes noted. Venous Doppler yesterday questioning acute DVT in the left femoral vein extending into the popliteal vein Objective - Vital Signs Vital signs: Vital Signs Temp 97.6 F 07/28/20 04:00 Pulse 100 07/28/20 11:19 Resp 21 07/28/20 11:00 BP 150/102 07/28/20 11:00 Pulse Ox 92 L 07/28/20 11:00 Intake & Output 07/27/20 07/28/20 07/28/20 18:59 06:59 18:59 Intake Total 005.588 2410 215 Output Total 125 565 250 Balance 441.583 4085 -35 Weight 158.757 kg 177.7 kg Intake: IV 245 1830 215 .9 75 920 145 left port 35 455 35 right port 35 455 35 Intake, IV Titration 208.715 13 Amount Heparin Sod,Pork in 0.45% 208.715 NaCl 25,000 unit In 0.45 % NaCl 1 250ml.bag @ 14.5 UNITS/KG/HR 23.02 mls/hr IV .[id number] PATY Rx#: [id number] Heparin Sod,Pork in 0.45% 13 NaCl 25,000 unit In 0.45 % NaCl 1 250ml.bag @ 2.5 mls/hr IV .Q24H PATY Rx#: [id number] Output: Urine 125 565 250 Other: Voiding Method External Catheter Indwelling Catheter Indwelling Catheter - Exam Physical Exam: Revealed a 40-year-old female obese, in no distress. Head: Atraumatic, normocephalic. HEENT:[Neck is supple.] [No neck masses.] [No thyromegaly.] [No JVD.] Short obese neck. Chest: [Symmetrical chest expansion, diminished breath sounds at the bases no rhonchi and no wheezes.] Cardiac Exam: [Normal S1 and S2, no S3 gallop, no murmur.] Abdomen: [The skull Soft, nontender, no megaly, no rebound, no guarding, normal bowel sounds.] Extremities: [No clubbing, no edema, no cyanosis.] Neurological Exam: [No focal neurologic deficit.] Alert oriented 3. Psychiatric: Normal mood affect and normal mental status examination. Skin: No rashes. Musculoskeletal: No deformities noted limitation range of motion. - Labs CBC & Chem 7: 07/28/20 06:25 07/28/20 06:25 Labs: Abnormal Lab Results - Last 24 Hours (Table) 07/27/20 07/27/20 07/27/20 Range/Units 07:47 07:47 16:11 WBC (3.8-10.6) k/uL MCH (25.0-35.0) pg MCHC (31.0-37.0) g/dL RDW (11.5-15.5) % Neutrophils # 20.2 H (1.3-7.7) k/uL APTT 51.8 H (22.0-30.0) sec BUN (7-17) mg/dL Glucose (74-99) mg/dL POC Glucose (mg/dL) (75-99) mg/dL Calcium (8.4-10.2) mg/dL Procalcitonin 0.15 H (0.02-0.09) ng/mL 07/27/20 07/27/20 07/28/20 Range/Units 18:09 19:52 00:37 WBC 19.6 H (3.8-10.6) k/uL MCH 24.7 L (25.0-35.0) pg MCHC 29.0 L (31.0-37.0) g/dL RDW 22.1 H (11.5-15.5) % Neutrophils # 17.7 H (1.3-7.7) k/uL APTT (22.0-30.0) sec BUN (7-17) mg/dL Glucose (74-99) mg/dL POC Glucose (mg/dL) 121 H 129 H (75-99) mg/dL Calcium (8.4-10.2) mg/dL Procalcitonin (0.02-0.09) ng/mL 07/28/20 07/28/20 07/28/20 Range/Units 00:37 06:25 06:25 WBC 16.6 H (3.8-10.6) k/uL MCH (25.0-35.0) pg MCHC 30.7 L (31.0-37.0) g/dL RDW 21.9 H (11.5-15.5) % Neutrophils # 14.8 H (1.3-7.7) k/uL APTT 19.4 L (22.0-30.0) sec BUN 21 H (7-17) mg/dL Glucose 182 H (74-99) mg/dL POC Glucose (mg/dL) (75-99) mg/dL Calcium 8.2 L (8.4-10.2) mg/dL Procalcitonin (0.02-0.09) ng/mL 07/28/20 07/28/20 07/28/20 Range/Units 06:25 06:36 11:38 WBC (3.8-10.6) k/uL MCH (25.0-35.0) pg MCHC (31.0-37.0) g/dL RDW (11.5-15.5) % Neutrophils # (1.3-7.7) k/uL APTT 21.0 L 21.8 L (22.0-30.0) sec BUN (7-17) mg/dL Glucose (74-99) mg/dL POC Glucose (mg/dL) 196 H (75-99) mg/dL Calcium (8.4-10.2) mg/dL Procalcitonin (0.02-0.09) ng/mL 07/28/20 Range/Units 12:05 WBC (3.8-10.6) k/uL MCH (25.0-35.0) pg MCHC (31.0-37.0) g/dL RDW (11.5-15.5) % Neutrophils # (1.3-7.7) k/uL APTT (22.0-30.0) sec BUN (7-17) mg/dL Glucose (74-99) mg/dL POC Glucose (mg/dL) 192 H (75-99) mg/dL Calcium (8.4-10.2) mg/dL Procalcitonin (0.02-0.09) ng/mL Microbiology - Last 24 Hours (Table) 07/26/20 09:57 Blood Culture - Preliminary Blood No Growth after 48 hours Assessment and Plan Assessment: Impression: Acute hypoxic respiratory failure secondary to stop massive bilateral pulmonary emboli Acute deep vein thrombosis involving left lower extremity. Morbid obesity. History of underlying COPD. Tobacco dependence syndrome. Type 2 diabetes. History of rheumatoid arthritis. Chronic lower extremities edema. Recommendation: Continue oxygen and titrate accordingly. Start patient on Eliquis 10 mg twice a day for 10 days then 5 mg twice a day. Maintenance, lifetime. Transfer patient out of the ICU to a regular medical floor, Resume home meds. Continue bronchodilators. Possible discharge planning in the next 24 hours. We'll continue to follow Time with Patient: Less than 30
[2020-07-28] MEDS: amLODIPine 10 MG TAB PO SCH (14:54)
[2020-07-28 16:49] LABS: Glucose,Whole Blood 197 mg/dL (75-99)
[2020-07-28] MEDS: ACETAMINOPHEN TAB 325 MG TAB PO PRN (18:08)
[2020-07-28] MEDS ORDERED: HYDROcodone/APAP 7.5-325MG 1 EACH TAB PO PRN (19:34)
[2020-07-28] MEDS: AMITRIPTYLINE HCL 50 MG TAB PO SCH (19:48)
--- NOTE | 2020-07-28 19:58 | PN ---
PROGRESS NOTE DATE OF SERVICE: 07/28/2020 This 40-year-old woman who was admitted with shortness of breath and as well as acute bilateral pulmonary embolism also has acute hypoxic respiratory failure. The patient received alteplase and currently on Eliquis 10 mg p.o. b.i.d. The patient is being closely monitored. Patient also had COPD asthma exacerbation. The patient is on bronchodilators as well. PAST MEDICAL HISTORY: Reviewed. REVIEW OF SYSTEMS: CARDIOVASCULAR No angina or palpitations. RESPIRATORY As mentioned earlier. GI No nausea, vomiting, or diarrhea. No dysuria or hematuria. NERVOUS No numbness or weakness. CURRENT MEDICATIONS: Reviewed include Tylenol, DuoNeb, Elavil, Eliquis, Rocephin. PHYSICAL EXAM: Patient is alert and oriented x3. Pulse 101, blood pressure 140/70, respiration 20, temperature is normal, pulse ox 97% on 7 L. HEENT: Conjunctivae normal. Oral mucosa moist. NECK: No jugular venous distention. No lymph node enlargement. CARDIOVASCULAR: S1, S2, muffled. No S3, no S4, RESPIRATORY: Diminished breath sounds at the bases. Bilateral scattered rhonchi and crackles. ABDOMEN: Soft, nontender, obese. LEGS: No edema, no swelling. NERVOUS SYSTEM: No focal deficits. LABS: Accu-Cheks noted. ASSESSMENT: 1. Shortness of breath, possible acute bilateral pulmonary embolism with acute hypoxic respiratory failure with possible acute cor pulmonale on alteplase and IV heparin. 2. Status post IV heparin drip. 3. Increased WBC. 4. Elevated D-dimer. 5. Possible asthma, chronic obstructive pulmonary disease acute exacerbation. 6. Elevated lactic acid. 7. Increased AST, ALT. 8. Gastroesophageal reflux disease. 9. DJD. 10.History of rheumatoid arthritis. 11.History of cholecystectomy. 12.History of anxiety, depression, PTSD. 13.History of nicotine dependence. 14.Super morbid obesity, body mass index of 68.4. 15.FULL CODE. RECOMMENDATIONS: Recommend to continue current medications, management and symptomatic treatment. Otherwise, at this time I would recommend continue the intensive bronchodilators. Continue with antiplatelet agents. Patient received alteplase. Closely follow with multiple consultants. Patient is extremely short of breath. The most recent chest x- ray reviewed. Prognosis guarded. Further recommendations to follow. MMODL / IJN: [id number] /
[2020-07-28 20:14] LABS: Glucose,Whole Blood 196 mg/dL (75-99)
[2020-07-29] MEDS: IPRATROPIUM-ALBUTEROL 3 ML NEB INHALATION SCH ×4 (00:33→15:31)
[2020-07-29 06:20] LABS: Glucose,Whole Blood 165 mg/dL (75-99)
[2020-07-29] MEDS: INSULIN ASPART (NovoLOG) 100 UNIT/ML VIAL SQ SCH ×2 (06:46→14:59)
[2020-07-29 08:49] VITALS: BP 135/80; RESP 18; TEMP 98.5
[2020-07-29] MEDS: amLODIPine 10 MG TAB PO SCH (09:22)
[2020-07-29] MEDS: APIXABAN 5 MG TAB PO SCH (09:22)
--- NOTE | 2020-07-29 11:08 | P.PN ---
Subjective Progress Note Date: 07/29/20 Patient seen and examined. Overall feeling better. Feels that her breathing is better Objective - Vital Signs Vital signs: Vital Signs Temp 98.5 F 07/29/20 08:00 Pulse 100 07/29/20 08:00 Resp 18 07/29/20 08:00 BP 135/80 07/29/20 08:00 Pulse Ox 92 L 07/29/20 08:53 Intake & Output 07/28/20 07/29/20 07/29/20 18:59 06:59 18:59 Intake Total 355 480 Output Total 395 Balance -40 480 Weight 128.5 kg Intake: IV 255 .9 185 left port 35 right port 35 Oral 100 480 Output: Urine 395 Other: Voiding Method Indwelling Catheter External Catheter # Voids 2 1 - Exam Mild respiratory distress resting comfortably on room air. Heart is regular at this time. Super morbidly obese. Right groin access site clean, dry, intact. Mild tenderness. No hematoma - Labs CBC & Chem 7: 07/28/20 06:25 07/28/20 06:25 Labs: Abnormal Lab Results - Last 24 Hours (Table) 07/27/20 07/28/20 07/28/20 Range/Units 07:47 11:38 12:05 APTT 21.8 L (22.0-30.0) sec POC Glucose (mg/dL) 192 H (75-99) mg/dL Procalcitonin 0.15 H (0.02-0.09) ng/mL 07/28/20 07/28/20 07/29/20 Range/Units 16:47 20:12 06:19 APTT (22.0-30.0) sec POC Glucose (mg/dL) 197 H 196 H 165 H (75-99) mg/dL Procalcitonin (0.02-0.09) ng/mL Microbiology - Last 24 Hours (Table) 07/26/20 09:57 Blood Culture - Preliminary Blood No Growth after 48 hours Assessment and Plan Assessment: Bilateral submassive pulmonary embolism Status post pharmacal mechanical thrombolysis Morbid obesity Plan: At this time, patient appears to be doing well. She has been transitioned over to oral anticoagulation. Continue this. We'll follow-up with her as an outpatient. In the next few days she will need a an echocardiogram, if she is here at the hospital this may be obtained today. This will form as a new baseline. Would not need to wait for results for discharge from my standpoint.
[2020-07-29 12:05] LABS: Glucose,Whole Blood 117 mg/dL (75-99)
--- NOTE | 2020-07-29 12:31 | P.PN ---
Subjective Progress Note Date: 07/29/20 Principal diagnosis: Acute pulmonary embolism This is a very pleasant 40-year-old female patient who follows with Carmen Bedoya is her primary care provider. She has a history of morbid obesity, depression, rheumatoid arthritis, migraines, chronic lower extremity edema, fo rmer smoker, marijuana use diabetes mellitus, also receiving Depo-Provera injections every 3 months. She presented to the emergency room yesterday with complaints of increasing shortness of breath. She utilized home breathing treatments without much improvement. Chest x-ray revealed possible left lower lobe pneumonia. CT angiogram reveals a large bilateral pulmonary Embolism with involvement of the right and left main pulmonary arteries. There is extension in the second and distal branches compatible with large burden an acute bilateral pulmonary embolism with right ventricular strain. Echocardiogram reveals preserved left ventricular systolic function. The right ventricle is moderately enlarged. Paradoxical motion of the right ventricular septum is consistent with right ventricular overload and/or elevated right ventricular end-diastolic pressure. She is seen today in the emergency room in consultation. She is currently awake and alert. No acute distress. Maintaining O2 saturations in the 90s on 4 L/m per nasal cannula. EKG revealing sinus tachycardia. BP stable. White count 23.4. Hemoglobin 12.9. Platelets 229. D-dimer 4.53. Fibrinogen 511. INR 1.1. Sodium 139. Potassium 4.2. Creatinine 0.72. ProBNP 4690. Monroy virus not detected. 0.9 normal saline at 130 ML's per hour. Vascular surgery has been consulted for possible EKOS. She is currently on a heparin drip. Patient was reevaluated today on 08/24/2020, she is down to 4 L nasal cannula, she was on 90 L yesterday. Patient is doing well, feeling much better today compared to yesterday. She underwent far bone mechanical thrombolysis with EKOS yesterday, and this was successful based on the clinical findings. Patient initially presented with submassive bilateral pulmonary emboli. She has no trigger factor except the patient is morbidly obese, her groin catheters have been removed today, patient was started on Eliquis at 10 mg twice a day. Overall the patient is doing great. Has minimal shortness of breath. No chest pain, no cough no fever no chills no hemoptysis. WBC count today is 16.6 hemoglobin is 12.6, normal electrolytes noted. Venous Doppler yesterday questioning acute DVT in the left femoral vein extending into the popliteal vein. The patient is seen today 07/29/2020 in follow-up on the regular medical floor. She is currently resting comfortably in bed. Awake and alert in no acute distress. No worsening shortness of breath. No chest pain. No hemoptysis. Maintaining O2 saturations in the 92% on room air at rest. She is afebrile. Hemodynamically stable. Blood cultures reveal no growth. Blood glucose 117. She remains on ceftriaxone, bronchodilators. Transitioned to Eliquis. Objective - Vital Signs Vital signs: Vital Signs Temp 98.5 F 07/29/20 08:00 Pulse 100 07/29/20 08:00 Resp 18 07/29/20 08:00 BP 135/80 07/29/20 08:00 Pulse Ox 92 L 07/29/20 08:53 Intake & Output 07/28/20 07/29/20 07/29/20 18:59 06:59 18:59 Intake Total 355 480 Output Total 395 Balance -40 480 Weight 128.5 kg Intake: IV 255 .9 185 left port 35 right port 35 Oral 100 480 Output: Urine 395 Other: Voiding Method Indwelling Catheter External Catheter # Voids 2 1 - Exam GENERAL EXAM: Alert, pleasant, morbidly obese 40-year-old female patient, on room air, comfortable in no apparent distress. HEAD: Normocephalic. EYES: Normal reaction of pupils, equal size. NOSE: Clear with pink turbinates. THROAT: No erythema or exudates. NECK: No masses, no JVD. CHEST: No chest wall deformity. LUNGS: Equal air entry with no crackles, wheeze, rhonchi or dullness. CVS: S1 and S2 normal with crackles in the left base, diminished. ABDOMEN: Morbidly obese unable to appreciate any organomegal, normal bowel sounds, no guarding or rigidity. SPINE: No scoliosis or deformity SKIN: No rashes CENTRAL NERVOUS SYSTEM: No focal deficits, tone is normal in all 4 extremities. EXTREMITIES: There is trace peripheral edema. No clubbing, no cyanosis. Peripheral pulses are intact. - Labs CBC & Chem 7: 07/28/20 06:25 07/28/20 06:25 Labs: Abnormal Lab Results - Last 24 Hours (Table) 07/28/20 07/28/20 07/28/20 Range/Units 11:38 16:47 20:12 APTT 21.8 L (22.0-30.0) sec POC Glucose (mg/dL) 197 H 196 H (75-99) mg/dL 07/29/20 07/29/20 Range/Units 06:19 11:55 APTT (22.0-30.0) sec POC Glucose (mg/dL) 165 H 117 H (75-99) mg/dL Microbiology - Last 24 Hours (Table) 07/26/20 09:57 Blood Culture - Preliminary Blood No Growth after 72 hours Assessment and Plan Assessment: 1 Acute hypoxemic respiratory failure secondary to large bilateral pulmonary acute embolism with involvement of the right and left main pulmonary arteries. There is extension into the secondary and distal branches compatible with large burden and acute bilateral pulmonary embolism with right ventricular strain. Echocardiogram reveals moderately enlarged right ventricle. Paradoxical motion the right ventricular septum is consistent with right ventricular overload and/or elevated right ventricular end diastolic pressure. Status post initiation of pulmonary pharmacomechanical thrombolytics with EKOS performed on 07/27/2020. Improved and currently on room air. 2 Leukocytosis, probable reactive 3 Morbid obesity with a BMI of 55.3 kg/m2 4 History of depression 5 Diabetes mellitus, type II 6 Rheumatoid arthritis 7 Chronic lower extremity edema 8 History of COPD/asthma 9 Former smoker Plan: The patient was seen and evaluated by Dr. Gillis She has been transitioned to [facility] Cleared for discharge from the pulmonary standpoint Follow-up in the office in 1-2 weeks' time I, the cosigning physician, performed a history & physical examination of the patient. Lungs sounds clear. Maintaining good O2 saturations in the 90s on room air. I discussed the assessment and plan of care with my nurse practitioner, Tiffanie Landrum. I attest to the above note as dictated by her.
[2020-07-29 15:46] VITALS: PULSE 94
--- NOTE | 2020-07-30 07:56 | DS ---
DISCHARGE SUMMARY DATE OF SERVICE: 07/29/2020 FINAL DIAGNOSIS: 1. Shortness of breath with acute bilateral pulmonary embolisms with acute hypoxic respiratory failure with possible acute cor pulmonale status post alteplase and as well as mechanical thrombolysis and EKOS. 2. Status post IV heparin drip. 3. Acute deep venous thrombosis of the left femoral vein. 4. Increased WBC. 5. Elevated D-dimer. 6. Possible asthma, chronic obstructive pulmonary disease. 7. Elevated lactic acid. 8. Increased AST and ALT. 9. Gastroesophageal reflux disease. 10.Degenerative joint disease. 11.History of rheumatoid arthritis. 12.History of cholecystectomy. 13.History of anxiety, depression, post-traumatic stress disorder. 14.Super morbid obesity, body mass index 68.4. 15.FULL CODE. DISCHARGE DISPOSITION: The patient will be discharged in stable condition with guarded prognosis. Total time 35 minutes. Discharge cleared by Pulmonary and as well as Vascular Surgery. HISTORY OF PRESENT ILLNESS: This 40-year-old woman with a past medical history of multiple medical problems, being followed by Dr. Demi Topete, as well as Mirtha Bedoya in the outpatient setting, was admitted with significant shortness with acute bilateral pulmonary embolism. 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 Patient improved significantly. Oral anticoagulants initiated. PHYSICAL EXAMINATION: On exam, vitals are stable. Cardiovascular S1 and S2. Respirations with few scattered rhonchi. DISCHARGE INSTRUCTIONS: Dr. Gillis saw the patient during the hospitalization stay. Patient discharged home in stable condition with guarded prognosis. Diet is cardiac. Activity limited until followup. Follow up with Dr. Demi Topete in 2-3 days. Follow up with Dr. Gillis as recommended. Follow up with Alo from vascular surgery as recommended. MEDICATIONS: 1. Artificial Tears. 2. Claritin 10 mg daily. 3. Cymbalta 60 mg p.o. daily. 4. Demadex 40 mg p.o. daily. 5. Depo-Provera 150 mg every 90 days. 6. DuoNeb q.i.d. and p.r.n. 7. Elavil 150 mg q.h.s. 8. Folic acid 1 mg p.o. daily. 9. Glucophage 500 mg p.o. daily. 10.Sarilumab 200 mg subcu every 14 days. 11.Lyrica 300 mg p.o. b.i.d. 12.Hydrocodone as before. 13.KCl 10 mEq p.o. daily. 14.Prilosec 20 mg daily. 15.Methotrexate 25 mg subcutaneously b.i.d. as before. 16.Requip 3 mg q.h.s. 17.Albuterol p.r.n. 18.Vitamin D2 50 mg p.o. daily. 19.Diclofenac topical. 20.Eliquis starter pack and then 5 mg b.i.d. 21.Norvasc 10 mg p.o. daily. Once again the patient will be discharged in a stable condition with a guarded prognosis. MMODL / IJN: [id number] /
== END 2020-07-29 17:10 | disposition home or self-care (01) | DRG 166 ==
LOC: EC 09:39 → 3SCARD 13:20 → 2SICU 07-27 10:08 → 3SCARD 07-28 17:45
PROVIDERS: ADMIT Internal Medicine; ATTEND Internal Medicine
PROC: 02FR3Z0 Fragmentation of Left Pulmonary Artery, Percutaneous Approach, Ultrasonic (ICD-10-PCS; principal; 2020-07-27 12:15)
PROC: 02FQ3Z0 Fragmentation of Right Pulmonary Artery, Percutaneous Approach, Ultrasonic (ICD-10-PCS; 2020-07-27 12:15)
PROC: 3E03317 Introduction of Other Thrombolytic into Peripheral Vein, Percutaneous Approach (ICD-10-PCS; 2020-07-27 12:15)
DX: I26.09 Other pulmonary embolism with acute cor pulmonale (principal); J96.01 Acute respiratory failure with hypoxia; I82.412 Acute embolism and thrombosis of left femoral vein; J44.1 Chronic obstructive pulmonary disease with (acute) exacerbation; J45.901 Unspecified asthma with (acute) exacerbation; Z68.44 Body mass index [BMI] 60.0-69.9, adult; E87.2 Acidosis; D72.829 Elevated white blood cell count, unspecified; E11.9 Type 2 diabetes mellitus without complications; E66.01 Morbid (severe) obesity due to excess calories; F17.210 Nicotine dependence, cigarettes, uncomplicated; F32.9 Major depressive disorder, single episode, unspecified; F43.10 Post-traumatic stress disorder, unspecified; F60.9 Personality disorder, unspecified; K21.9 Gastro-esophageal reflux disease without esophagitis; M06.9 Rheumatoid arthritis, unspecified; M19.90 Unspecified osteoarthritis, unspecified site; Z20.822 Contact with and (suspected) exposure to COVID-19; Z79.84 Long term (current) use of oral hypoglycemic drugs; Z90.49 Acquired absence of other specified parts of digestive tract; Z79.899 Other long term (current) drug therapy
CPT/HCPCS: 36415; 37211; 71045; 71046; 71275; 75743; 76937; 80048; 80053; 82550; 83605; 83690; 83735; 83880; 84145; 84484; 85025; 85379; 85384; 85610; 85730; 87040; 87635; 93005; 93306; 93970; 94640; 94760; 96361; 96374; 96375; 99291

== ENCOUNTER 2020-07-31 17:02 | Inpatient (IN) | payer MEDICARE, OTHER ==
[2020-07-31] MEDS ORDERED: IPRATROPIUM-ALBUTEROL 3 ML NEB INHALATION STA (17:07)
--- NOTE | 2020-07-31 17:16 | ED ---
General Adult HPI - General Stated complaint: SOB Time Seen by Provider: 07/31/20 17:02 Source: patient, RN notes reviewed, old records reviewed - History of Present Illness Initial comments: This is a 40-year-old female who presents emergency Department with difficulty breathing. Patient states she recently had a clot removed from her lungs and was sent home on eliquis however the patient did not get the eliquis filled so she has not taken any. Patient was found by the daughter home lethargic and very sleepy. Patient's pulse ox was 80% at home so the daughter called EMS to bring the patient in. Patient states she was feeling a little short of breath and tired but she did not think much of it. Patient denies any fever chills or cough. Patient denies any chest pain or palpitations. Patient denies any nausea vomiting diarrhea. Patient states she does feel better sitting up breathing. Patient does have history of asthma and diabetes. Patient also states she has a clot in one legs. She did not murmur which one patient does not remember the name of the surgeon. - Related Data Home Medications Medication Instructions Recorded Confirmed Amitriptyline HCl [Elavil] 150 mg PO HS 02/20/19 07/31/20 DULoxetine HCL [Cymbalta] 60 mg PO DAILY 02/20/19 07/31/20 Folic Acid 1 mg PO DAILY 02/20/19 07/31/20 Hydrocodone/Acetaminophen [[place] 1 tab PO BID PRN 02/20/19 07/31/20 7.5-325] Methotrexate/Pf [Rasuvo 25 mg/0.5 25 mg SQ SA 02/20/19 07/31/20 ml Autoinj] Omeprazole [PriLOSEC] 20 mg PO AC-BRKFST 02/20/19 07/31/20 Pregabalin [Lyrica] 300 mg PO BID 02/20/19 07/31/20 medroxyPROGESTERone [Depo-Provera] 150 mg IM Q90D 02/20/19 07/31/20 Artificial Tears-Hypromellose 1 drops BOTH EYES TID PRN 03/19/19 07/31/20 [Artificial Tear Drops] Potassium Chloride 10 meq PO DAILY 03/19/19 07/31/20 Albuterol Inhaler [Ventolin Hfa 2 puff INHALATION RT-Q4H PRN 07/26/20 07/31/20 Inhaler] Cholecalciferol [Vitamin D3 (25 50 mcg PO DAILY 07/26/20 07/31/20 Mcg = 1000 Iu)] Diclofenac Sodium Gel [Voltaren 2 gm TOPICAL TID 07/26/20 07/31/20 Gel] Ipratropium-Albuterol Nebulize 3 ml INHALATION RT-QID 07/26/20 07/31/20 [Duoneb 0.5 mg-3 mg/3 ml Soln] Loratadine [Claritin] 10 mg PO DAILY 07/26/20 07/31/20 Sarilumab [Kevzara] 200 mg SQ Q14D 07/26/20 07/31/20 Torsemide [Demadex] 40 mg PO DAILY 07/26/20 07/31/20 metFORMIN HCL [Glucophage] 500 mg PO DAILY 07/26/20 07/31/20 rOPINIRole HCL [Requip] 3 mg PO HS 07/26/20 07/31/20 Apixaban [Eliquis Starter Pack See Taper PO DIRECTED 07/31/20 07/31/20 (for VTE)] Previous Rx's Medication Instructions Recorded amLODIPine [Norvasc] 10 mg PO DAILY #10 tab 07/29/20 Allergies Allergy/AdvReac Type Severity Reaction Status Date / Time No Known Allergies Allergy Verified 07/31/20 17:57 Review of Systems ROS Statement: Those systems with pertinent positive or pertinent negative responses have been documented in the HPI. ROS Other: All systems not noted in ROS Statement are negative. Past Medical History Past Medical History: Asthma, COPD, GERD/Reflux, Osteoarthritis (OA), Rheumatoid Arthritis (RA) Additional Past Medical History / Comment(s): migraines, edema celia ankles, History of Any Multi-Drug Resistant Organisms: None Reported Past Surgical History: Cholecystectomy, Hernia Repair Additional Past Surgical History / Comment(s): oral surgery, Past Anesthesia/Blood Transfusion Reactions: No Reported Reaction Past Psychological History: Anxiety, Depression, PTSD Additional Psychological History / Comment(s): personality disorder Smoking Status: Current some day smoker Past Alcohol Use History: None Reported Additional Past Alcohol Use History / Comment(s): smokes 1 PPD since 1986 Past Drug Use History: Marijuana - Past Family History Mother Family Medical History: No Reported History General Exam - General Exam Comments Initial Comments: GENERAL: Patient is well-developed and well-nourished. Patient is nontoxic and well- hydrated and is in mild distress. ENT: Neck is soft and supple. No significant lymphadenopathy is noted. Oropharynx is clear. Moist mucous membranes. Neck has full range of motion without eliciting any pain. EYES: The sclera were anicteric and conjunctiva were pink and moist. Extraocular movements were intact and pupils were equal round and reactive to light. Eyelids were unremarkable. PULMONARY: Patient is tachypneic and has expiratory wheezing. CARDIOVASCULAR: There is a regular rate and rhythm without any murmurs gallops or rubs. ABDOMEN: Soft and nontender with normal bowel sounds. SKIN: Skin is clear with no lesions or rashes and otherwise unremarkable. NEUROLOGIC: Patient is alert and oriented x3. Cranial nerves II through XII are grossly intact. Motor and sensory are also intact. Normal speech, volume and content. Symmetrical smile. MUSCULOSKELETAL: Normal extremities with adequate strength and full range of motion. LYMPHATICS: No significant lymphadenopathy is noted PSYCHIATRIC: Normal psychiatric evaluation. Course Vital Signs 07/31/20 07/31/20 07/31/20 17:18 17:46 17:57 Temperature 97.4 F L Pulse Rate 105 H 102 H 100 Respiratory 22 Rate Blood Pressure 119/82 O2 Sat by Pulse 95 Oximetry Medical Decision Making - Medical Decision Making EKG shows sinus tachycardia at 103 bpm WA interval 232 QRS is 84 QT interval 390 QTC is 510. Patient's EKG shows no ST segment elevation or depression. CAT scan of the chest shows PEs that do not appear significantly changed from the previous CT. And she was started on high-dose heparin. I spoke with Dr. Bolaños and he agreed to admit the patient to the patient wrote admitting orders. I consulted Dr. Prajapati who saw her previously. - Lab Data Result diagrams: 07/31/20 17:32 07/31/20 17:32 Lab Results 07/31/20 07/31/20 07/31/20 Range/Units 17:32 17:32 17:32 WBC 15.6 H (3.8-10.6) k/uL RBC 5.93 H (3.80-5.40) m/uL Hgb 14.7 (11.4-16.0) gm/dL Hct 49.0 H (34.0-46.0) % MCV 82.6 (80.0-100.0) fL MCH 24.7 L (25.0-35.0) pg MCHC 30.0 L (31.0-37.0) g/dL RDW 21.9 H (11.5-15.5) % Plt Count 266 (150-450) k/uL MPV 8.5 Neutrophils % 69 % Lymphocytes % 19 % Monocytes % 9 % Eosinophils % 2 % Basophils % 1 % Neutrophils # 10.7 H (1.3-7.7) k/uL Lymphocytes # 2.9 (1.0-4.8) k/uL Monocytes # 1.4 H (0-1.0) k/uL Eosinophils # 0.3 (0-0.7) k/uL Basophils # 0.1 (0-0.2) k/uL Manual Slide Review Performed Polychromasia Present Hypochromasia Marked Poikilocytosis Slight Anisocytosis Moderate Microcytosis Slight PT 11.1 (9.0-12.0) sec INR 1.0 (<1.2) APTT 20.9 L (22.0-30.0) sec Sodium 138 (137-145) mmol/L Potassium 4.3 (3.5-5.1) mmol/L Chloride 102 (98-107) mmol/L Carbon Dioxide 30 (22-30) mmol/L Anion Gap 6 mmol/L BUN 10 (7-17) mg/dL Creatinine 0.53 (0.52-1.04) mg/dL Est GFR (CKD-EPI)AfAm >90 (>60 ml/min/1.73 sqM) Est GFR (CKD-EPI)NonAf >90 (>60 ml/min/1.73 sqM) Glucose 117 H (74-99) mg/dL Plasma Lactic Acid Frank (0.7-2.0) mmol/L Calcium 8.8 (8.4-10.2) mg/dL Magnesium 1.6 (1.6-2.3) mg/dL Total Bilirubin 1.0 (0.2-1.3) mg/dL AST 33 (14-36) U/L ALT 51 H (4-34) U/L Alkaline Phosphatase 89 (38-126) U/L Troponin I (0.000-0.034) ng/mL Total Protein 5.6 L (6.3-8.2) g/dL Albumin 3.4 L (3.5-5.0) g/dL 07/31/20 07/31/20 Range/Units 17:32 17:32 WBC (3.8-10.6) k/uL RBC (3.80-5.40) m/uL Hgb (11.4-16.0) gm/dL Hct (34.0-46.0) % MCV (80.0-100.0) fL MCH (25.0-35.0) pg MCHC (31.0-37.0) g/dL RDW (11.5-15.5) % Plt Count (150-450) k/uL MPV Neutrophils % % Lymphocytes % % Monocytes % % Eosinophils % % Basophils % % Neutrophils # (1.3-7.7) k/uL Lymphocytes # (1.0-4.8) k/uL Monocytes # (0-1.0) k/uL Eosinophils # (0-0.7) k/uL Basophils # (0-0.2) k/uL Manual Slide Review Polychromasia Hypochromasia Poikilocytosis Anisocytosis Microcytosis PT (9.0-12.0) sec INR (<1.2) APTT (22.0-30.0) sec Sodium (137-145) mmol/L Potassium (3.5-5.1) mmol/L Chloride (98-107) mmol/L Carbon Dioxide (22-30) mmol/L Anion Gap mmol/L BUN (7-17) mg/dL Creatinine (0.52-1.04) mg/dL Est GFR (CKD-EPI)AfAm (>60 ml/min/1.73 sqM) Est GFR (CKD-EPI)NonAf (>60 ml/min/1.73 sqM) Glucose (74-99) mg/dL Plasma Lactic Acid Frank 1.1 (0.7-2.0) mmol/L Calcium (8.4-10.2) mg/dL Magnesium (1.6-2.3) mg/dL Total Bilirubin (0.2-1.3) mg/dL AST (14-36) U/L ALT (4-34) U/L Alkaline Phosphatase (38-126) U/L Troponin I <0.012 (0.000-0.034) ng/mL Total Protein (6.3-8.2) g/dL Albumin (3.5-5.0) g/dL Disposition Clinical Impression: Pulmonary embolism, Hypoxic episode Disposition: ADMITTED IP TO THIS HOSP Referrals: Demi Topete MD [Primary Care Provider] - 1-2 days Time of Disposition: 18:47
[2020-07-31 17:56] LABS: ALT 51 U/L (4-34); AST 33 U/L (14-36); African American GFR (CKD) >90 (>60 ml/min/1.73 sqM); Albumin 3.4 g/dL (3.5-5.0); Alkaline Phosphatase 89 U/L (38-126); Anion Gap 6 mmol/L; Blood Urea Nitrogen 10 mg/dL (7-17); Calcium 8.8 mg/dL (8.4-10.2); Carbon Dioxide 30 mmol/L (22-30); Chloride 102 mmol/L (98-107); Glucose 117 mg/dL (74-99); Magnesium 1.6 mg/dL (1.6-2.3); Non-African American GFR(CKD) >90 (>60 ml/min/1.73 sqM); Potassium 4.3 mmol/L (3.5-5.1); Sodium 138 mmol/L (137-145); Total Protein 5.6 g/dL (6.3-8.2)
[2020-07-31 18:08] LABS: Anisocytosis Moderate; Basophils # (A) 0.1 k/uL (0-0.2); Basophils % (A) 1 %; Eosinophils # (A) 0.3 k/uL (0-0.7); Eosinophils % (A) 2 %; HGB 14.7 gm/dL (11.4-16.0); Hypochromasia Marked; Lymphocytes # (A) 2.9 k/uL (1.0-4.8); Lymphocytes % (A) 19 %; MCH 24.7 pg (25.0-35.0); MCV 82.6 fL (80.0-100.0); Mean Platelet Volume 8.5; Microcytosis Slight; Monocytes # (A) 1.4 k/uL (0-1.0); Monocytes % (A) 9 %; Neutrophils # (A) 10.7 k/uL (1.3-7.7); Neutrophils % (A) 69 %; Platelet Count 266 k/uL (150-450); Poikilocytosis Slight; RBC 5.93 m/uL (3.80-5.40); RDW 21.9 % (11.5-15.5); WBC 15.6 k/uL (3.8-10.6)
[2020-07-31 18:09] LABS: Prothrombin Time 11.1 sec (9.0-12.0)
[2020-07-31 18:24] LABS: Partial Thromboplastin Time 20.9 sec (22.0-30.0)
[2020-07-31 18:29] LABS: Polychromasia Present
--- NOTE | 2020-07-31 18:35 | CT ---
EXAMINATION TYPE: CT chest angio for PE DATE OF EXAM: 07/31/2020 COMPARISON: 07/26/2020 HISTORY: SOB x2 days CT DLP: 1009.8 mGycm Automated exposure control for dose reduction was used. CONTRAST: Performed with IV Contrast, patient injected with 100ml mL of Isovue 370. There are 3-D post processed images. There is small left pleural effusion. There is some mild atelectasis left lung base. Heart size is fa irly normal. There is no pericardial effusion. There is no mediastinal adenopathy. There are no hilar masses. Thoracic aorta is intact. There is no aneurysm or dissection. There are multiple large filling defects in the right upper and lower lobe pulmonary artery. There ar e a few smaller defects in the left lower lobe pulmonary artery. The thoracic spine is intact. There is no compression fracture. Sternum is intact. IMPRESSION: Bilateral multiple pulmonary emboli that are worse on the right side. This appears not significantly different than recent exam. No evidence of a new pulmonary embolism. Left pleural effusion unchanged. Normal sized heart. No sign of right heart strain. Right ventricle not enlarged.
[2020-07-31] MEDS ORDERED: HEPARIN SODIUM 1,000 UN/ML (10ML VL) IV STA (18:43)
[2020-07-31] MEDS ORDERED: SODIUM CHLORIDE 0.9% 1,000 ML IV ONE (18:47)
[2020-07-31] MEDS: HEPARIN SOD,PORK IN 0.45% NACL 25,000 UNIT in 0.45% NACL 1 250ML.BAG IV SCH (19:19)
[2020-07-31] MEDS: FAMOTIDINE 20 MG/2 ML VIAL IV SCH (22:19)
[2020-08-01] MEDS ORDERED: HEPARIN SODIUM 1,000 UN/ML (10ML VL) IVP STA (02:46)
--- NOTE | 2020-08-01 10:46 | P.CNPUL ---
History of Present Illness Consult date: 08/01/20 Reason for consult: dyspnea Chief complaint: Shortness of breath History of present illness: Patient is a 40-year-old female came into the hospital with increasing shortness of breath and chest pain of 2 day duration, patient has a recent history of thrombectomy and has been prescribed and liquids however she did not get any coitus, she was found to be somnolent and lethargic at home oxygen saturation was 80% EMS were called, patient does not know where the surgery occurred, CT scan of the chest positive for bilateral pulmonary embolism more so on the right side compared to left side along with left-sided pleural effusion which is stable, Review of Systems All systems: negative Past Medical History Past Medical History: Asthma, COPD, GERD/Reflux, Osteoarthritis (OA), Rheumatoid Arthritis (RA) Additional Past Medical History / Comment(s): migraines, edema celia ankles, History of Any Multi-Drug Resistant Organisms: None Reported Past Surgical History: Cholecystectomy, Hernia Repair Additional Past Surgical History / Comment(s): oral surgery, Past Anesthesia/Blood Transfusion Reactions: No Reported Reaction Past Psychological History: Anxiety, Depression, PTSD Additional Psychological History / Comment(s): personality disorder Smoking Status: Current some day smoker Past Alcohol Use History: None Reported Additional Past Alcohol Use History / Comment(s): smokes 1 PPD since 1986 Past Drug Use History: Marijuana - Past Family History Mother Family Medical History: No Reported History Medications and Allergies Home Medications Medication Instructions Recorded Confirmed Type Amitriptyline HCl [Elavil] 150 mg PO HS 02/20/19 07/31/20 History DULoxetine HCL [Cymbalta] 60 mg PO DAILY 02/20/19 07/31/20 History Folic Acid 1 mg PO DAILY 02/20/19 07/31/20 History Hydrocodone/Acetaminophen [[place] 1 tab PO BID PRN 02/20/19 07/31/20 History 7.5-325] Methotrexate/Pf [Rasuvo 25 mg/0.5 25 mg SQ SA 02/20/19 07/31/20 History ml Autoinj] Omeprazole [PriLOSEC] 20 mg PO AC-BRKFST 02/20/19 07/31/20 History Pregabalin [Lyrica] 300 mg PO BID 02/20/19 07/31/20 History medroxyPROGESTERone [Depo-Provera] 150 mg IM Q90D 02/20/19 07/31/20 History Artificial Tears-Hypromellose 1 drops BOTH EYES TID PRN 03/19/19 07/31/20 History [Artificial Tear Drops] Potassium Chloride 10 meq PO DAILY 03/19/19 07/31/20 History Albuterol Inhaler [Ventolin Hfa 2 puff INHALATION RT-Q4H PRN 07/26/20 07/31/20 History Inhaler] Cholecalciferol [Vitamin D3 (25 50 mcg PO DAILY 07/26/20 07/31/20 History Mcg = 1000 Iu)] Diclofenac Sodium Gel [Voltaren 2 gm TOPICAL TID 07/26/20 07/31/20 History Gel] Ipratropium-Albuterol Nebulize 3 ml INHALATION RT-QID 07/26/20 07/31/20 History [Duoneb 0.5 mg-3 mg/3 ml Soln] Loratadine [Claritin] 10 mg PO DAILY 07/26/20 07/31/20 History Sarilumab [Kevzara] 200 mg SQ Q14D 07/26/20 07/31/20 History Torsemide [Demadex] 40 mg PO DAILY 07/26/20 07/31/20 History metFORMIN HCL [Glucophage] 500 mg PO DAILY 07/26/20 07/31/20 History rOPINIRole HCL [Requip] 3 mg PO HS 07/26/20 07/31/20 History amLODIPine [Norvasc] 10 mg PO DAILY #10 tab 07/29/20 07/31/20 Rx Apixaban [Eliquis Starter Pack See Taper PO DIRECTED 07/31/20 07/31/20 History (for VTE)] Apixaban [Eliquis Starter Pack 0 mg PO DIRECTED 30 Days #1 pack 08/01/20 Rx (for VTE)] Allergies Allergy/AdvReac Type Severity Reaction Status Date / Time No Known Allergies Allergy Verified 07/31/20 17:57 Physical Exam Vitals: Vital Signs Temp Pulse Resp BP Pulse Ox 08/01/20 07:20 99.1 F 107 H 22 110/70 92 L 08/01/20 04:00 100 22 139/90 97 08/01/20 03:00 101 H 20 133/90 97 08/01/20 02:00 103 H 20 142/85 97 08/01/20 00:10 101 H 20 136/89 07/31/20 22:20 98.0 F 101 H 20 135/91 93 L 07/31/20 18:53 104 H 20 140/97 96 07/31/20 17:57 100 07/31/20 17:46 102 H 07/31/20 17:18 97.4 F L 105 H 22 119/82 95 Intake and Output 07/31/20 08/01/20 08/01/20 22:59 06:59 14:59 Intake Total 174.417 Balance 174.417 Intake: Intake, IV Titration 174.417 Amount Heparin Sod,Pork in 0.45% 174.417 NaCl 25,000 unit In 0.45 % NaCl 1 250ml.bag @ 15. 145 UNITS/KG/HR 23 mls/hr IV .[id number] [facility] Rx#: [id number] Other: Weight 151.863 kg - Constitutional General appearance: cooperative, disheveled - EENT Eyes: PERRLA Ears: bilateral: normal - Neck Neck: normal ROM Carotids: bilateral: upstroke normal Thyroid: bilateral: normal size - Respiratory Respiratory: bilateral: CTA, diminished - Cardiovascular Rhythm: regular Heart sounds: normal: S1, S2 - Gastrointestinal General gastrointestinal: normal bowel sounds - Neurologic Neurologic: CNII-XII intact - Musculoskeletal Musculoskeletal: gait normal, generalized weakness, strength equal bilaterally - Psychiatric Psychiatric: A&O x's 3, appropriate affect, intact judgment & insight Results - Laboratory Findings CBC and BMP: 07/31/20 17:32 07/31/20 17:32 PT/INR, D-dimer PT 11.1 sec (9.0-12.0) 07/31/20 17:32 INR 1.0 (<1.2) 07/31/20 17:32 Abnormal lab findings: Abnormal Labs 07/31/20 07/31/20 07/31/20 17:32 17:32 17:32 WBC 15.6 H RBC 5.93 H Hct 49.0 H MCH 24.7 L MCHC 30.0 L RDW 21.9 H Neutrophils # 10.7 H Monocytes # 1.4 H APTT 20.9 L Glucose 117 H ALT 51 H Total Protein 5.6 L Albumin 3.4 L 06/07/21 02:00 WBC RBC Hct MCH MCHC RDW Neutrophils # Monocytes # APTT 41.8 H Glucose ALT Total Protein Albumin - Diagnostic Findings Chest x-ray: report reviewed, image reviewed CT scan - chest: report reviewed, image reviewed Assessment and Plan Assessment: Bilateral pulmonary embolism Left-sided pleural effusion History of prior pulmonary embolism with thrombectomy Noncompliance with anticoagulant Plan: Continue IV heparin Obtained prior reports an evaluation Further recommendations pending plan of care as per clinical response of patient Time with Patient: Greater than 30
--- NOTE | 2020-08-01 11:00 | P.GSCN ---
History of Present Illness Consult date: 08/01/20 Reason for Consult: bilateral pulmonary emboli, status post EKOS Requesting physician: Branden Bolaños History of present illness: A pleasant 40-year-old female who presented to the emergency department yesterday after her daughter found her in her home feeling short of breath and weak, with a reported oxygen level of 80% at home. The patient has a past medical history that includes a current every day smoker, morbid obesity, asthma, and COPD with a recent diagnosis of submassive bilateral pulmonary embo li. She was just recently discharged from the hospital for treatment for the pulmonary emboli with initiation of pulmonary pharmacal mechanical thrombolysis with EKOS. The patient was discharged on 07/29/2020 and never filled her prescription for her Eliquis, therefore she has not had any anticoagulation for 2 days. She states she was having some increased shortness of breath and fatigue over the last couple days. She states today she is feeling much better, she states her breathing is improved, shortness of breath is improved, denies any chest pain. She is currently on IV heparin drip. Troponins were negative. She also did not have any outpatient repeat echocardiogram. He is currently on 2 L nasal cannula with oxygen saturation around 97%. Review of Systems 14 point review systems was completed all pertinent positives and negatives as stated in the HPI Past Medical History Past Medical History: Asthma, COPD, GERD/Reflux, Osteoarthritis (OA), Rheumatoid Arthritis (RA) Additional Past Medical History / Comment(s): migraines, edema celia ankles, History of Any Multi-Drug Resistant Organisms: None Reported Past Surgical History: Cholecystectomy, Hernia Repair Additional Past Surgical History / Comment(s): oral surgery, Past Anesthesia/Blood Transfusion Reactions: No Reported Reaction Past Psychological History: Anxiety, Depression, PTSD Additional Psychological History / Comment(s): personality disorder Smoking Status: Current some day smoker Past Alcohol Use History: None Reported Additional Past Alcohol Use History / Comment(s): smokes 1 PPD since 1986 Past Drug Use History: Marijuana - Past Family History Mother Family Medical History: No Reported History Medications and Allergies Home Medications Medication Instructions Recorded Confirmed Type Amitriptyline HCl [Elavil] 150 mg PO HS 02/20/19 07/31/20 History DULoxetine HCL [Cymbalta] 60 mg PO DAILY 02/20/19 07/31/20 History Folic Acid 1 mg PO DAILY 02/20/19 07/31/20 History Hydrocodone/Acetaminophen [[place] 1 tab PO BID PRN 02/20/19 07/31/20 History 7.5-325] Methotrexate/Pf [Rasuvo 25 mg/0.5 25 mg SQ SA 02/20/19 07/31/20 History ml Autoinj] Omeprazole [PriLOSEC] 20 mg PO AC-BRKFST 02/20/19 07/31/20 History Pregabalin [Lyrica] 300 mg PO BID 02/20/19 07/31/20 History medroxyPROGESTERone [Depo-Provera] 150 mg IM Q90D 02/20/19 07/31/20 History Artificial Tears-Hypromellose 1 drops BOTH EYES TID PRN 03/19/19 07/31/20 History [Artificial Tear Drops] Potassium Chloride 10 meq PO DAILY 03/19/19 07/31/20 History Albuterol Inhaler [Ventolin Hfa 2 puff INHALATION RT-Q4H PRN 07/26/20 07/31/20 History Inhaler] Cholecalciferol [Vitamin D3 (25 50 mcg PO DAILY 07/26/20 07/31/20 History Mcg = 1000 Iu)] Diclofenac Sodium Gel [Voltaren 2 gm TOPICAL TID 07/26/20 07/31/20 History Gel] Ipratropium-Albuterol Nebulize 3 ml INHALATION RT-QID 07/26/20 07/31/20 History [Duoneb 0.5 mg-3 mg/3 ml Soln] Loratadine [Claritin] 10 mg PO DAILY 07/26/20 07/31/20 History Sarilumab [Kevzara] 200 mg SQ Q14D 07/26/20 07/31/20 History Torsemide [Demadex] 40 mg PO DAILY 07/26/20 07/31/20 History metFORMIN HCL [Glucophage] 500 mg PO DAILY 07/26/20 07/31/20 History rOPINIRole HCL [Requip] 3 mg PO HS 07/26/20 07/31/20 History amLODIPine [Norvasc] 10 mg PO DAILY #10 tab 07/29/20 07/31/20 Rx Apixaban [Eliquis Starter Pack See Taper PO DIRECTED 07/31/20 07/31/20 History (for VTE)] Apixaban [Eliquis Starter Pack 0 mg PO DIRECTED 30 Days #1 pack 08/01/20 Rx (for VTE)] Allergies Allergy/AdvReac Type Severity Reaction Status Date / Time No Known Allergies Allergy Verified 07/31/20 17:57 Surgical - Exam Vital Signs Temp Pulse Resp BP Pulse Ox 97.4 F L 105 H 22 119/82 95 07/31/20 17:18 07/31/20 17:18 07/31/20 17:18 07/31/20 17:18 07/31/20 17:18 General appearance: The patient is alert, oriented, appears in no acute distress. Morbidly obese. HET: Head is normocephalic and atraumatic. Neck: Supple without lymphadenopathy. Trachea midline. Heart: S1 S2. Regular rate and rhythm. Lungs: Clear to auscultation. No crackles or wheezes are heard. Abdomen: Soft, nontender, nondistended. Morbidly obese. Extremities: Normal skin color and turgor. Pedal edema. Neurological: No focal deficits. Alert and oriented [address] angiogram: Bilateral multiple pulmonary emboli that are worse on the right. This appears not significantly different and recent exam. No evidence of new pulmonary embolism. Left pleural effusion unchanged. Normal-sized heart. No sign of right heart strain. Right ventricle not enlarged. - Labs 07/31/20 17:32 07/31/20 17:32 Abnormal Lab Results - Last 24 Hours (Table) 07/31/20 07/31/20 07/31/20 Range/Units 17:32 17:32 17:32 WBC 15.6 H (3.8-10.6) k/uL RBC 5.93 H (3.80-5.40) m/uL Hct 49.0 H (34.0-46.0) % MCH 24.7 L (25.0-35.0) pg MCHC 30.0 L (31.0-37.0) g/dL RDW 21.9 H (11.5-15.5) % Neutrophils # 10.7 H (1.3-7.7) k/uL Monocytes # 1.4 H (0-1.0) k/uL APTT 20.9 L (22.0-30.0) sec Glucose 117 H (74-99) mg/dL ALT 51 H (4-34) U/L Total Protein 5.6 L (6.3-8.2) g/dL Albumin 3.4 L (3.5-5.0) g/dL 08/01/20 Range/Units 02:00 WBC (3.8-10.6) k/uL RBC (3.80-5.40) m/uL Hct (34.0-46.0) % MCH (25.0-35.0) pg MCHC (31.0-37.0) g/dL RDW (11.5-15.5) % Neutrophils # (1.3-7.7) k/uL Monocytes # (0-1.0) k/uL APTT 41.8 H (22.0-30.0) sec Glucose (74-99) mg/dL ALT (4-34) U/L Total Protein (6.3-8.2) g/dL Albumin (3.5-5.0) g/dL Diabetes panel 07/31/20 Range/Units 17:32 Sodium 138 (137-145) mmol/L Potassium 4.3 (3.5-5.1) mmol/L Chloride 102 (98-107) mmol/L Carbon Dioxide 30 (22-30) mmol/L BUN 10 (7-17) mg/dL Creatinine 0.53 (0.52-1.04) mg/dL Glucose 117 H (74-99) mg/dL Calcium 8.8 (8.4-10.2) mg/dL AST 33 (14-36) U/L ALT 51 H (4-34) U/L Alkaline Phosphatase 89 (38-126) U/L Total Protein 5.6 L (6.3-8.2) g/dL Albumin 3.4 L (3.5-5.0) g/dL Calcium panel 07/31/20 Range/Units 17:32 Calcium 8.8 (8.4-10.2) mg/dL Albumin 3.4 L (3.5-5.0) g/dL Pituitary panel 07/31/20 Range/Units 17:32 Sodium 138 (137-145) mmol/L Potassium 4.3 (3.5-5.1) mmol/L Chloride 102 (98-107) mmol/L Carbon Dioxide 30 (22-30) mmol/L BUN 10 (7-17) mg/dL Creatinine 0.53 (0.52-1.04) mg/dL Glucose 117 H (74-99) mg/dL Calcium 8.8 (8.4-10.2) mg/dL Adrenal panel 07/31/20 Range/Units 17:32 Sodium 138 (137-145) mmol/L Potassium 4.3 (3.5-5.1) mmol/L Chloride 102 (98-107) mmol/L Carbon Dioxide 30 (22-30) mmol/L BUN 10 (7-17) mg/dL Creatinine 0.53 (0.52-1.04) mg/dL Glucose 117 H (74-99) mg/dL Calcium 8.8 (8.4-10.2) mg/dL Total Bilirubin 1.0 (0.2-1.3) mg/dL AST 33 (14-36) U/L ALT 51 H (4-34) U/L Alkaline Phosphatase 89 (38-126) U/L Total Protein 5.6 L (6.3-8.2) g/dL Albumin 3.4 L (3.5-5.0) g/dL Assessment and Plan Assessment: 1. Bilateral pulmonary emboli status post pulmonary pharmacal mechanical thrombolysis with EKOS (07/26/20) 2. Shortness of breath 3. Morbidly obese 4. Nicotine dependence 5. History of COPD Plan: 1. Continue IV heparin drip at this time, will transition over to Eliquis 10 mg twice a day starting this evening 2. New prescription sent to [facility] pharmacy in house 3. Repeat Echocardiogram ordered 4. Smoking cessation 5. Weight loss 6. Further recommendations to follow based on clinical course Thank you for this consultation and allowing us take part in the plan of care of your patient. The impression and plan of care has been dictated as directed. Dr. Prajapati I performed a history and examination of this patient, discussed the same with the dictator. I agree with the dictator's note ,documented as a scribe. Any additional findings or plans will be noted.
[2020-08-01 11:56] LABS: Anisocytosis Moderate; Basophils # (A) 0.1 k/uL (0-0.2); Basophils % (A) 1 %; Eosinophils # (A) 0.6 k/uL (0-0.7); Eosinophils % (A) 4 %; HCT 45.6 % (34.0-46.0); HGB 13.4 gm/dL (11.4-16.0); Hypochromasia Marked; Lymphocytes # (A) 3.5 k/uL (1.0-4.8); Lymphocytes % (A) 23 %; MCH 24.5 pg (25.0-35.0); MCHC 29.4 g/dL (31.0-37.0); MCV 83.5 fL (80.0-100.0); Mean Platelet Volume 10.2; Microcytosis Slight; Monocytes # (A) 0.7 k/uL (0-1.0); Monocytes % (A) 5 %; Neutrophils # (A) 9.8 k/uL (1.3-7.7); Neutrophils % (A) 66 %; Platelet Count 258 k/uL (150-450); Poikilocytosis Slight; RBC 5.46 m/uL (3.80-5.40); RDW 21.7 % (11.5-15.5); WBC 14.8 k/uL (3.8-10.6)
--- NOTE | 2020-08-01 12:10 | P.CNPUL ---
History of Present Illness Consult date: 08/01/20 Requesting physician: Demi Topete Reason for consult: dyspnea, hypoxemia, pulmonary embolism, abnormal CXR/CT Chief complaint: Shortness of breath. History of present illness: Pulmonary consult dated 08/01/2020. This is a 40-year-old obese female, who comes into the emergency department co mplaining of shortness of breath. The patient was recently in the hospital with bilateral large pulmonary emboli, with right heart strain, and underwent EKOS. The patient was intubated discharged home on a factor X a inhibitor, i.e., Eliquis, which she apparently never picked up from the pharmacy. The patient was brought back into the emergency room because apparently she was very lethargic and sleepy and her saturations according to her daughter were 80%. EMS was called. Currently, she is resting comfortably in the emergency department. She was actually laying on her right side sleep only came into the room. She was on IV heparin. She was also on 2 L nasal cannula, with saturations of 98%. The patient appears to be very stable and my opinion and really could be discharged home on nasal O2, and Eliquis. The patient does continue to smoke and may have some underlying COPD. She has a history of rheumatoid arthritis, migraine cephalgia, osteoarthritis, gastroesophageal reflux disease, and morbid obesity. She apparently was previously on control pills which may have been a risk factor for unprovoked pulmonary emboli. Also, her sedentary lifestyle, and obesity certainly a risk factors as well. Most recent laboratory data includes a white count of 14.8, hemoglobin 13.4, hematocrit 45.6, platelet count 258,000. PTT is 62.5. Sodium, potassium, chloride, CO2, anion gap, BUN, and creatinine are all normal. Testing for christianson virus was negative. CT angiogram showed bilateral multiple pulmonary emboli, worse on the right, which is unchanged. In addition, no new pulmonary emboli were seen, the left pleural effusion is unchanged, the heart is of normal size, and there is no signs of right heart strain. Review of Systems REVIEW OF SYSTEMS: CONSTITUTIONAL: [Negative.] NEUROLOGIC: [ Negative.] HEENT: [ Negative.] CARDIAC: [Negative.] PULMONARY: Shortness of breath. GI: [Negative.] : [Negative.] RHEUMATOLOGIC: [ Negative.] IMMUNOLOGIC: [ Negative.] ENDOCRINE: [Negative. ] DERMATOLOGIC: [Negative.] Past Medical History Past Medical History: Asthma, COPD, GERD/Reflux, Osteoarthritis (OA), Rheumatoid Arthritis (RA) Additional Past Medical History / Comment(s): migraines, edema celia ankles, History of Any Multi-Drug Resistant Organisms: None Reported Past Surgical History: Cholecystectomy, Hernia Repair Additional Past Surgical History / Comment(s): oral surgery, Past Anesthesia/Blood Transfusion Reactions: No Reported Reaction Past Psychological History: Anxiety, Depression, PTSD Additional Psychological History / Comment(s): personality disorder Smoking Status: Current some day smoker Past Alcohol Use History: None Reported Additional Past Alcohol Use History / Comment(s): smokes 1 PPD since 1986 Past Drug Use History: Marijuana - Past Family History Mother Family Medical History: No Reported History Medications and Allergies Home Medications Medication Instructions Recorded Confirmed Type Amitriptyline HCl [Elavil] 150 mg PO HS 02/20/19 07/31/20 History DULoxetine HCL [Cymbalta] 60 mg PO DAILY 02/20/19 07/31/20 History Folic Acid 1 mg PO DAILY 02/20/19 07/31/20 History Hydrocodone/Acetaminophen [[place] 1 tab PO BID PRN 02/20/19 07/31/20 History 7.5-325] Methotrexate/Pf [Rasuvo 25 mg/0.5 25 mg SQ SA 02/20/19 07/31/20 History ml Autoinj] Omeprazole [PriLOSEC] 20 mg PO AC-BRKFST 02/20/19 07/31/20 History Pregabalin [Lyrica] 300 mg PO BID 02/20/19 07/31/20 History medroxyPROGESTERone [Depo-Provera] 150 mg IM Q90D 02/20/19 07/31/20 History Artificial Tears-Hypromellose 1 drops BOTH EYES TID PRN 03/19/19 07/31/20 History [Artificial Tear Drops] Potassium Chloride 10 meq PO DAILY 03/19/19 07/31/20 History Albuterol Inhaler [Ventolin Hfa 2 puff INHALATION RT-Q4H PRN 07/26/20 07/31/20 History Inhaler] Cholecalciferol [Vitamin D3 (25 50 mcg PO DAILY 07/26/20 07/31/20 History Mcg = 1000 Iu)] Diclofenac Sodium Gel [Voltaren 2 gm TOPICAL TID 07/26/20 07/31/20 History Gel] Ipratropium-Albuterol Nebulize 3 ml INHALATION RT-QID 07/26/20 07/31/20 History [Duoneb 0.5 mg-3 mg/3 ml Soln] Loratadine [Claritin] 10 mg PO DAILY 07/26/20 07/31/20 History Sarilumab [Kevzara] 200 mg SQ Q14D 07/26/20 07/31/20 History Torsemide [Demadex] 40 mg PO DAILY 07/26/20 07/31/20 History metFORMIN HCL [Glucophage] 500 mg PO DAILY 07/26/20 07/31/20 History rOPINIRole HCL [Requip] 3 mg PO HS 07/26/20 07/31/20 History amLODIPine [Norvasc] 10 mg PO DAILY #10 tab 07/29/20 07/31/20 Rx Apixaban [Eliquis Starter Pack See Taper PO DIRECTED 07/31/20 07/31/20 History (for VTE)] Apixaban [Eliquis Starter Pack 0 mg PO DIRECTED 30 Days #1 pack 08/01/20 Rx (for VTE)] Allergies Allergy/AdvReac Type Severity Reaction Status Date / Time No Known Allergies Allergy Verified 07/31/20 17:57 Physical Exam Osteopathic Statement: *. No significant issues noted on an osteopathic structural exam other than those noted in the History and Physical/Consult. Vitals: Vital Signs Temp Pulse Resp BP Pulse Ox 08/01/20 11:23 102 H 16 94/66 98 08/01/20 07:20 99.1 F 107 H 22 110/70 92 L 08/01/20 04:00 100 22 139/90 97 08/01/20 03:00 101 H 20 133/90 97 08/01/20 02:00 103 H 20 142/85 97 08/01/20 00:10 101 H 20 136/89 07/31/20 22:20 98.0 F 101 H 20 135/91 93 L 07/31/20 18:53 104 H 20 140/97 96 07/31/20 17:57 100 07/31/20 17:46 102 H 07/31/20 17:18 97.4 F L 105 H 22 119/82 95 Intake and Output 07/31/20 08/01/20 08/01/20 22:59 06:59 14:59 Intake Total 174.417 Output Total 1200 Balance 174.417 -1200 Intake: Intake, IV Titration 174.417 Amount Heparin Sod,Pork in 0.45% 174.417 NaCl 25,000 unit In 0.45 % NaCl 1 250ml.bag @ 15. 145 UNITS/KG/HR 23 mls/hr IV .[id number] [facility] Rx#: [id number] Output: Urine 1200 Other: Weight 151.863 kg No acute distress, oriented 3. The patient is sleepy but arouses. Nasal O2 in place. HEENT examination is grossly unremarkable. Neck supple. Full range of motion. No adenopathy thyromegaly or neck vein distention. Cardiovascular examination reveals regular rhythm rate. S1-S2 normal. No S3 or S4. No discernible murmur noted. Heart sounds are very distant. Lungs reveal clear breath sounds. Her sounds are equal bilaterally. No adventitious lung sounds including wheezes rhonchi or crackles. Abdomen soft bowel sounds are heard. No masses or tenderness. Abdomen is very obese. Extremities are intact. No cyanosis clubbing or edema. Skin is without rash or lesion. Neurologic examination is brief but nonfocal. Results - Laboratory Findings CBC and BMP: 07/31/20 17:32 07/31/20 17:32 PT/INR, D-dimer PT 11.1 sec (9.0-12.0) 07/31/20 17:32 INR 1.0 (<1.2) 07/31/20 17:32 Abnormal lab findings: Abnormal Labs 07/31/20 07/31/20 07/31/20 17:32 17:32 17:32 WBC 15.6 H RBC 5.93 H Hct 49.0 H MCH 24.7 L MCHC 30.0 L RDW 21.9 H Neutrophils # 10.7 H Monocytes # 1.4 H APTT 20.9 L Glucose 117 H ALT 51 H Total Protein 5.6 L Albumin 3.4 L 08/01/20 08/01/20 02:00 10:29 WBC RBC Hct MCH MCHC RDW Neutrophils # Monocytes # APTT 41.8 H 62.5 H Glucose ALT Total Protein Albumin - Diagnostic Findings CT scan - chest: image reviewed Assessment and Plan Assessment: Recent episode of massive pulmonary emboli, treated with EKOS. The patient was to start on Eliquis, but apparently never picked up the medication from the pharmacy. Morbid obesity. History of rheumatoid arthritis. Ongoing tobacco use and nicotine addiction, rule out COPD. History of gastroesophageal reflux disease. History of osteoarthritis. History of migraine cephalgia. History of anxiety/depression/PTSD. Plan: Plan dated 08/01/2020. The patient is counseled about the importance of smoking cessation. I told her smoking but increased risk of bad things happening to her including COPD, among other things. In addition, we counseled the patient about the importance of taking her medications properly. We asked her why she never picked up her Yanelis hermelindo, she states that she was "too tired". The patient will need follow-up with my partner post discharge. From my perspective, once the patient starts on Eliquis, she could be discharged from the hospital. She may or may not need to be discharged on oxygen therapy. The patient may also be suffering from sleep apnea syndrome, and/or Pickwickian syndrome and should be evaluated for both. Time with Patient: Greater than 30
[2020-08-01 12:18] LABS: African American GFR (CKD) >90 (>60 ml/min/1.73 sqM); Anion Gap 4 mmol/L; Blood Urea Nitrogen 11 mg/dL (7-17); Calcium 8.4 mg/dL (8.4-10.2); Carbon Dioxide 32 mmol/L (22-30); Chloride 103 mmol/L (98-107); Glucose 99 mg/dL (74-99); Non-African American GFR(CKD) >90 (>60 ml/min/1.73 sqM); Potassium 3.3 mmol/L (3.5-5.1); Sodium 139 mmol/L (137-145)
[2020-08-01] MEDS ORDERED: ARTIFICIAL TEARS-HYPROMELLOSE DROPS 15 ML BTL BOTH EYES PRN (14:29)
[2020-08-01] MEDS ORDERED: Potassium Replacement Protocol 1 EACH MISC MISCELLANE PRN (14:33)
[2020-08-01] MEDS ORDERED: Magnesium Replacement Protocol 1 EACH MISC MISCELLANE PRN (14:33)
--- NOTE | 2020-08-01 15:04 | HP ---
HISTORY AND PHYSICAL DATE OF SERVICE: 08/01/2020. CHIEF COMPLAINTS: Shortness of breath. HISTORY OF PRESENT ILLNESS: This 40-year-old woman with a past medical history of multiple medical problems including: Asthma, COPD, GERD, DJD, rheumatoid arthritis, recently admitted to [facility] with features of shortness of breath. The patient had acute bilateral pulmonary embolism. Patient underwent mechanical thrombolysis with EKOS system. The patient was started on direct anticoagulants. The patient was discharged home. After going home, the patient is complaining of significant shortness of breath. The patient also had hypoxic episode. The patient was found to be very lethargic and sleepy. The patient was taken to [facility] and admitted for further evaluation and treatment. On admission, the pulse ox found to be 95% on 3 L, CO2 was 32. Currently the patient is saturating 94% on 3 L. There is no history of any fever, rigor or chills at this time. The patient is followed by Dr. Demi Topete and as well as Mirtha Bedoya and Dr. Rosales in the outpatient setting. PAST MEDICAL HISTORY: Asthma, COPD, GERD, DJD, rheumatoid arthritis, history of recent pulmonary embolism, anxiety, depression, PTSD. MEDICATIONS: Home medications are reviewed and include : Requip, Glucophage, Norvasc, Demadex, Lyrica, potassium chloride, Prilosec, Claritin. DuoNeb, Stockwell, Voltaren gel, folic acid, Cymbalta, vitamin D3, Artificial Tears, apixaban starter pack, Depo- Provera. methotrexate, albuterol and apixaban. ALLERGIES: NONE. FAMILY HISTORY: No history of heart disease or strokes in the family. SOCIAL HISTORY: History of smoking, continued ongoing. REVIEW OF SYSTEMS: ENT: No diminished vision. No diminished hearing. Cardiovascular: No angina. Respiratory: As mentioned earlier. GI no nausea or vomiting. no dysuria. NERVOUS SYSTEM: No numbness or weakness. Allergy/Immunology: No asthma or hayfever. Hematology/Oncology: No history of anemia. Constitutional: As mentioned earlier. Hematology/Oncology: No history of anemia. ENDOCRINE: As mentioned earlier. Rheumatology: Negative. Dermatology: Negative. Psychiatric: as mentioned earlier. PHYSICAL EXAMINATION: Alert and oriented x3. Pulse is 105. Blood pressure 119/82. Respirations 22, temperature 97.4, pulse ox 94% on 3 L. HEENT: Conjunctivae normal. NECK: No JVD. CARDIOVASCULAR: S1, S2 muffled. RESPIRATION: Breathing efforts are markedly increased. Bilateral scattered rhonchi and expiratory wheezing and crackles. ABDOMEN: Soft, obese, nontender. No mass palpable. LEGS: No edema. No swelling. NERVOUS SYSTEM: Higher functions as mentioned earlier. Moves all 4 limbs. No focal motor or sensory deficits. LYMPHATICS: No lymph nodes palpable in the neck, axillae or groin. SKIN: No rash, no ulcers, no bleeding. JOINTS: No active deforming arthropathy. LABS: WBC 14.8, hemoglobin 13.4, and sodium is 139, potassium 3.3. Other labs are noted. ASSESSMENT: 1. Shortness of breath possibly multifactorial with acute bronchial asthma, chronic obstructive pulmonary disease acute exacerbation. 2. Change in mental status, acute metabolic encephalopathy secondary to hypercarbia or excessive medications. 3. Increased WBC. 4. History of recent pulmonary embolism status post thrombolysis and EKOS system. 5. On direct anticoagulants at this time. 6. Increased WBC. 7. Heparin monitoring. 8. Hypokalemia. 9. History of asthma, chronic obstructive pulmonary disease. 10.History of gastroesophageal reflux disease. 11.Degenerative joint disease. 12.Rheumatoid arthritis. 13.History of migraines. 14.History of cholecystectomy. 15.Anxiety, bipolar depression, PTSD. 16.History of continued ongoing nicotine dependence. 17.Morbid obesity with body mass index of 65.4. RECOMMENDATIONS AND DISCUSSION: This 40-year-old woman who presented with multiple complex medical issues, we will monitor the patient closely, continue the current medications, management and symptomatic treatment. Otherwise, at this time, I recommend continue with IV heparin and intensive bronchodilators. I would also recommend some steroids and hold off some of the sedatives. Closely follow. Vascular Surgery has been consulted. Guarded prognosis because of multiple complex medical issues. Further recommendations to follow. A copy of this dictation being forwarded to Dr. Demi Topete. ELVIRA / SCARLETT: [id number] / JINA
[2020-08-01] MEDS: IPRATROPIUM-ALBUTEROL 3 ML NEB INHALATION SCH ×2 (15:12→19:03)
[2020-08-01] MEDS: FAMOTIDINE 20 MG/2 ML VIAL IV SCH ×2 (15:29→20:44)
[2020-08-01] MEDS: methylPREDNISolone SOD SUCCI 125 MG/2 ML VIAL IV SCH ×2 (15:35→23:53)
[2020-08-01] MEDS: DICLOFENAC SODIUM GEL 100 GM TUBE TOPICAL SCH ×2 (15:36→20:45)
[2020-08-01] MEDS: APIXABAN 5 MG TAB PO SCH ×2 (15:37→23:53)
[2020-08-01 16:46] LABS: Glucose,Whole Blood 165 mg/dL (75-99)
[2020-08-01] MEDS: INSULIN ASPART (NovoLOG) 100 UNIT/ML VIAL SQ SCH ×2 (18:27→20:44)
[2020-08-01 19:43] LABS: Glucose,Whole Blood 196 mg/dL (75-99)
[2020-08-01] MEDS ORDERED: BUDESONIDE 1 MG/2 ML NEBU INHALATION SCH (20:00)
[2020-08-01] MEDS ORDERED: FORMOTEROL FUMARATE 20 MCG/2 ML NEBU INHALATION SCH (20:00)
[2020-08-01] MEDS: AMITRIPTYLINE HCL 50 MG TAB PO SCH (20:43)
[2020-08-01] MEDS: POTASSIUM CHLORIDE ER 20 MEQ TAB.ER PO SCH ×2 (20:43→23:53)
[2020-08-01] MEDS: PREGABALIN 100 MG CAP PO SCH (20:43)
[2020-08-01] MEDS ORDERED: APIXABAN 5 MG TAB PO SCH (21:00)
[2020-08-02] MEDS: HEPARIN SOD,PORK IN 0.45% NACL 25,000 UNIT in 0.45% NACL 1 250ML.BAG IV SCH ×2 (01:15→01:17)
[2020-08-02] MEDS: HYDROcodone/APAP 7.5-325MG 1 EACH TAB PO PRN (04:20)
[2020-08-02 05:54] LABS: Glucose,Whole Blood 190 mg/dL (75-99)
[2020-08-02] MEDS: INSULIN ASPART (NovoLOG) 100 UNIT/ML VIAL SQ SCH ×4 (06:43→20:58)
[2020-08-02] MEDS: PANTOPRAZOLE 40 MG TABLET PO SCH (06:44)
[2020-08-02] MEDS: metFORMIN 500 MG TAB PO SCH (06:44)
[2020-08-02] MEDS: POTASSIUM CHLORIDE ER 10 MEQ TAB.ER.PRT PO SCH (08:01)
[2020-08-02] MEDS: CHOLECALCIFEROL 25 MCG (1000 IU) TABLET PO SCH (08:01)
[2020-08-02] MEDS: FOLIC ACID 1 MG TAB PO SCH (08:01)
[2020-08-02] MEDS: PREGABALIN 100 MG CAP PO SCH ×2 (08:01→20:58)
[2020-08-02] MEDS: APIXABAN 5 MG TAB PO SCH ×2 (08:01→20:58)
[2020-08-02] MEDS: amLODIPine 10 MG TAB PO SCH (08:01)
[2020-08-02] MEDS: FAMOTIDINE 20 MG/2 ML VIAL IV SCH (08:01)
[2020-08-02] MEDS: DICLOFENAC SODIUM GEL 100 GM TUBE TOPICAL SCH ×3 (08:02→20:59)
[2020-08-02 08:42] LABS: African American GFR (CKD) >90 (>60 ml/min/1.73 sqM); Anion Gap 7 mmol/L; Blood Urea Nitrogen 11 mg/dL (7-17); Calcium 8.8 mg/dL (8.4-10.2); Carbon Dioxide 27 mmol/L (22-30); Chloride 103 mmol/L (98-107); Glucose 155 mg/dL (74-99); Magnesium 1.7 mg/dL (1.6-2.3); Non-African American GFR(CKD) >90 (>60 ml/min/1.73 sqM); Potassium 4.7 mmol/L (3.5-5.1); Sodium 137 mmol/L (137-145)
[2020-08-02 08:52] LABS: Anisocytosis Moderate; Basophils # (A) 0.1 k/uL (0-0.2); Basophils % (A) 0 %; Eosinophils % (A) 0 %; HCT 48.2 % (34.0-46.0); HGB 14.2 gm/dL (11.4-16.0); Hypochromasia Marked; Lymphocytes # (A) 1.5 k/uL (1.0-4.8); Lymphocytes % (A) 7 %; MCH 24.7 pg (25.0-35.0); MCHC 29.4 g/dL (31.0-37.0); MCV 84.1 fL (80.0-100.0); Mean Platelet Volume 11.3; Microcytosis Slight; Monocytes # (A) 0.5 k/uL (0-1.0); Monocytes % (A) 2 %; Neutrophils # (A) 18.4 k/uL (1.3-7.7); Neutrophils % (A) 90 %; Platelet Count 321 k/uL (150-450); Poikilocytosis Slight; RBC 5.73 m/uL (3.80-5.40); RDW 21.3 % (11.5-15.5); WBC 20.5 k/uL (3.8-10.6)
[2020-08-02] MEDS: IPRATROPIUM-ALBUTEROL 3 ML NEB INHALATION SCH ×4 (09:00→21:05)
--- NOTE | 2020-08-02 10:01 | ECHOF ---
Referral Reason:Recent PE with EKOS,revaluate right heart strain MEASUREMENTS -------- HEIGHT: 152.4 cm WEIGHT: 151.5 kg BP: 110/70 RVIDd: 2.9 cm (< 3.3) IVSd: 1.4 cm (0.6 - 1.1) LVIDd: 4.2 cm (3.9 - 5.3) LVPWd: 1.5 cm (0.6 - 1.1) IVSs: 2.0 cm LVIDs: 2.4 cm LVPWs: 1.7 cm RAP: 5.00 mmHg RVSP: 9.20 mmHg FINDINGS -------- This was a technically difficult study with suboptimal views. Limited Study The left ventricular size is normal. There is moderate concentric left ventricular hypertrophy. O verall left ventricular systolic function is low-normal with, an EF between 50 - 55 %. The right ventricle is normal in size. Lumason used The tricuspid valve appears structurally normal. Mild tricuspid regurgitation present. Right vent ricular systolic pressure is normal at < 35 mmHg. There is no pericardial effusion. CONCLUSIONS -------- 1. The left ventricular size is normal. 2. There is moderate concentric left ventricular hypertrophy. 3. Overall left ventricular systolic function is low-normal with, an EF between 50 - 55 %. 4. Mild tricuspid regurgitation present. 5. There is no pericardial effusion. HUMAN RESOURCES HR GENERALIST: Rox Kat [facility]
--- NOTE | 2020-08-02 10:47 | P.PN ---
Subjective Progress Note Date: 08/02/20 Principal diagnosis: Shortness of breath/pulmonary embolism. Pulmonary consult dated 08/01/2020. This is a 40-year-old obese female, who comes into the emergency department complaining of shortness of breath. The patient was recently in the hospital with bilateral large pulmonary emboli, with right heart strain, and underwent EKOS. The patient was intubated discharged home on a factor X a inhibitor, i.e., Eliquis, which she apparently never picked up from the pharmacy. The patient was brought back into the emergency room because apparently she was very lethargic and sleepy and her saturations according to her daughter were 80%. EMS was called. Currently, she is resting comfortably in the emergency department. She was actually laying on her right side sleep only came into the room. She was on IV heparin. She was also on 2 L nasal cannula, with saturations of 98%. The patient appears to be very stable and my opinion and really could be discharged home on nasal O2, and Eliquis. The patient does continue to smoke and may have some underlying COPD. She has a history of rheumatoid arthritis, migraine cephalgia, osteoarthritis, gastroesophageal reflux disease, and morbid obesity. She apparently was previously on control pills which may have been a risk factor for unprovoked pulmonary emboli. Also, her sedentary lifestyle, and obesity certainly a risk factors as well. Most recent laboratory data includes a white count of 14.8, hemoglobin 13.4, hematocrit 45.6, platelet count 258,000. PTT is 62.5. Sodium, potassium, chloride, CO2, anion gap, BUN, and creatinine are all normal. Testing for christianson virus was negative. CT angiogram showed bilateral multiple pulmonary emboli, worse on the right, which is unchanged. In addition, no new pulmonary emboli were seen, the left pleural effusion is unchanged, the heart is of normal size, and there is no signs of right heart strain. Progress note dated 08/02/2020. This is a 40-year-old obese female seen in the emergency department yesterday. She came in complaining of shortness of breath. She was recently inpatient here, and underwent catheter directed TPA for massive pulmonary emboli, along with ultrasonic dissolution of the clot (EKOS). The patient was discharged from the hospital with the intent of starting on a factor X a inhibitor, i.e. Eliquis. Apparently the patient states that she was too tired to cook pickled meat her medication and did not get the medication and hence came back into the hospital with increasing shortness of breath. He was given IV heparin, and was started b ack on Eliquis. She is currently stable. She is on a couple liters of oxygen. The patient could be discharged home today if okay with the primary. Labs today include a white count of 20.5, hemoglobin 14.2, hematocrit 48.2, and a platelet count 321,000. Sodium, potassium, chloride, CO2, anion gap, BUN, and creatinine are all normal. Objective - Vital Signs Vital signs: Vital Signs Temp 98.2 F 08/02/20 08:00 Pulse 110 H 08/02/20 09:11 Resp 20 08/02/20 08:00 BP 132/74 08/02/20 08:00 Pulse Ox 93 L 08/02/20 08:00 Intake & Output 08/01/20 08/02/20 08/02/20 18:59 06:59 18:59 Intake Total 240 Output Total 1200 Balance -960 Weight 163.7 kg Intake: Oral 240 Output: Urine 1200 Other: Voiding Method Bedside Commode # Voids 1 # Bowel Movements 1 1 - Exam No acute distress, oriented 3. Nasal O2 in place. The patient is much more awake today. HEENT examination is grossly unremarkable. Neck supple. Full range of motion. No adenopathy thyromegaly or neck vein distention. Cardiovascular examination reveals regular rhythm rate. S1-S2 normal. No S3 or S4. No discernible murmur noted. Heart sounds are very distant. Lungs reveal clear breath sounds. Breath sounds are equal bilaterally. No adventitious lung sounds including wheezes rhonchi or crackles. Abdomen soft bowel sounds are heard. No masses or tenderness. Abdomen is very obese. Extremities are intact. No cyanosis clubbing or edema. Skin is without rash or lesion. Neurologic examination is brief but nonfocal. - Labs CBC & Chem 7: 08/02/20 07:26 08/02/20 07:26 Labs: Abnormal Lab Results - Last 24 Hours (Table) 08/01/20 08/01/20 08/01/20 Range/Units 10:29 10:29 10:29 WBC 14.8 H (3.8-10.6) k/uL RBC 5.46 H (3.80-5.40) m/uL Hct (34.0-46.0) % MCH 24.5 L (25.0-35.0) pg MCHC 29.4 L (31.0-37.0) g/dL RDW 21.7 H (11.5-15.5) % Neutrophils # 9.8 H (1.3-7.7) k/uL APTT 62.5 H (22.0-30.0) sec Potassium 3.3 L (3.5-5.1) mmol/L Carbon Dioxide 32 H (22-30) mmol/L Glucose (74-99) mg/dL POC Glucose (mg/dL) (75-99) mg/dL Amylase (30-110) U/L Procalcitonin (0.02-0.09) ng/mL 08/01/20 08/01/20 08/01/20 Range/Units 10:29 10:29 16:42 WBC (3.8-10.6) k/uL RBC (3.80-5.40) m/uL Hct (34.0-46.0) % MCH (25.0-35.0) pg MCHC (31.0-37.0) g/dL RDW (11.5-15.5) % Neutrophils # (1.3-7.7) k/uL APTT (22.0-30.0) sec Potassium (3.5-5.1) mmol/L Carbon Dioxide (22-30) mmol/L Glucose (74-99) mg/dL POC Glucose (mg/dL) 165 H (75-99) mg/dL Amylase <30 L (30-110) U/L Procalcitonin 0.11 H (0.02-0.09) ng/mL 08/01/20 08/02/20 08/02/20 Range/Units 19:42 05:52 07:26 WBC 20.5 H (3.8-10.6) k/uL RBC 5.73 H (3.80-5.40) m/uL Hct 48.2 H (34.0-46.0) % MCH 24.7 L (25.0-35.0) pg MCHC 29.4 L (31.0-37.0) g/dL RDW 21.3 H (11.5-15.5) % Neutrophils # 18.4 H (1.3-7.7) k/uL APTT (22.0-30.0) sec Potassium (3.5-5.1) mmol/L Carbon Dioxide (22-30) mmol/L Glucose (74-99) mg/dL POC Glucose (mg/dL) 196 H 190 H (75-99) mg/dL Amylase (30-110) U/L Procalcitonin (0.02-0.09) ng/mL 08/02/20 Range/Units 07:26 WBC (3.8-10.6) k/uL RBC (3.80-5.40) m/uL Hct (34.0-46.0) % MCH (25.0-35.0) pg MCHC (31.0-37.0) g/dL RDW (11.5-15.5) % Neutrophils # (1.3-7.7) k/uL APTT (22.0-30.0) sec Potassium (3.5-5.1) mmol/L Carbon Dioxide (22-30) mmol/L Glucose 155 H (74-99) mg/dL POC Glucose (mg/dL) (75-99) mg/dL Amylase (30-110) U/L Procalcitonin (0.02-0.09) ng/mL Assessment and Plan Assessment: Recent episode of massive pulmonary emboli, treated with EKOS. The patient was to start on Eliquis, but apparently never picked up the medication from the pharmacy. Morbid obesity. History of rheumatoid arthritis. Ongoing tobacco use and nicotine addiction, rule out COPD. History of gastroesophageal reflux disease. History of osteoarthritis. History of migraine cephalgia. History of anxiety/depression/PTSD. Plan: Plan dated 08/01/2020. The patient is counseled about the importance of smoking cessation. I told her smoking but increased risk of bad things happening to her including COPD, among other things. In addition, we counseled the patient about the importance of taking her medications properly. We asked her why she never picked up her Eliquis, she states that she was "too tired". The patient will need follow-up with my partner post discharge. From my perspective, once the patient starts on Eliquis, she could be discharged from the hospital. She may or may not need to be discharged on oxygen therapy. The patient may also be suffering from sleep apnea syndrome, and/or Pickwickian syndrome and should be evaluated for both. Plan dated 08/02/2020. The patient is currently on Eliquis. The IV heparin has been discontinued. The patient could be discharged home. The patient should follow-up with Dr. Gillis in the office. The patient may be suffering from both sleep apnea syndrome, as well as pickwickian syndrome. This will need to be evaluated as an outpatient. In addition, the patient is smoking, and may have some underlying COPD as well. Time with Patient: Less than 30
--- NOTE | 2020-08-02 11:38 | P.PN ---
Subjective Progress Note Date: 08/02/20 Principal diagnosis: Bilateral pulmonary emboli Patient seen and examined lying in bed. She has on 2 L nasal cannula oxygenation 93%. Patient is denying any shortness of breath or chest pain currently. No acute changes through the night. Heparin drip has been discontinued and patient was transitioned to Eliquis 10 mg twice a day. Echocardiogram was performed however there was difficulty with imaging and no report available. Patient will need outpatient echo cardiogram within the next week. Objective - Vital Signs Vital signs: Vital Signs Temp 98.4 F 08/01/20 20:00 Pulse 115 H 08/02/20 04:00 Resp 20 08/02/20 04:00 BP 125/77 08/02/20 04:00 Pulse Ox 92 L 08/02/20 04:00 Intake & Output 08/01/20 08/02/20 08/02/20 18:59 06:59 18:59 Intake Total 240 Output Total 1200 Balance -960 Weight 163.7 kg Intake: Oral 240 Output: Urine 1200 Other: # Voids 1 # Bowel Movements 1 1 - Exam General appearance: The patient is alert, oriented, appears in no acute distress. Morbidly obese HET: Head is normocephalic and atraumatic. Neck: Supple without lymphadenopathy. Trachea midline. Heart: S1 S2. Regular rate and rhythm. Lungs: No crackles or wheezes are heard. Abdomen: Soft, nontender, nondistended. Extremities: Normal skin color and turgor. Neurological: No focal deficits. Alert and oriented 3. - Labs CBC & Chem 7: 08/02/20 07:26 08/02/20 07:26 Labs: Abnormal Lab Results - Last 24 Hours (Table) 08/01/20 08/01/20 08/01/20 Range/Units 10:29 10:29 10:29 WBC 14.8 H (3.8-10.6) k/uL RBC 5.46 H (3.80-5.40) m/uL MCH 24.5 L (25.0-35.0) pg MCHC 29.4 L (31.0-37.0) g/dL RDW 21.7 H (11.5-15.5) % Neutrophils # 9.8 H (1.3-7.7) k/uL APTT 62.5 H (22.0-30.0) sec Potassium 3.3 L (3.5-5.1) mmol/L Carbon Dioxide 32 H (22-30) mmol/L POC Glucose (mg/dL) (75-99) mg/dL Amylase (30-110) U/L Procalcitonin (0.02-0.09) ng/mL 08/01/20 08/01/20 08/01/20 Range/Units 10:29 10:29 16:42 WBC (3.8-10.6) k/uL RBC (3.80-5.40) m/uL MCH (25.0-35.0) pg MCHC (31.0-37.0) g/dL RDW (11.5-15.5) % Neutrophils # (1.3-7.7) k/uL APTT (22.0-30.0) sec Potassium (3.5-5.1) mmol/L Carbon Dioxide (22-30) mmol/L POC Glucose (mg/dL) 165 H (75-99) mg/dL Amylase <30 L (30-110) U/L Procalcitonin 0.11 H (0.02-0.09) ng/mL 08/01/20 08/02/20 Range/Units 19:42 05:52 WBC (3.8-10.6) k/uL RBC (3.80-5.40) m/uL MCH (25.0-35.0) pg MCHC (31.0-37.0) g/dL RDW (11.5-15.5) % Neutrophils # (1.3-7.7) k/uL APTT (22.0-30.0) sec Potassium (3.5-5.1) mmol/L Carbon Dioxide (22-30) mmol/L POC Glucose (mg/dL) 196 H 190 H (75-99) mg/dL Amylase (30-110) U/L Procalcitonin (0.02-0.09) ng/mL Assessment and Plan Assessment: 1. Bilateral pulmonary emboli status post pulmonary pharmacal mechanical thrombolysis with EKOS (07/26/20) 2. Shortness of breath 3. Morbidly obese 4. Nicotine dependence 5. History of COPD 6. Likely has a component of obstructive sleep apnea, recommend outpatient follow-up Plan: 1. Continue Eliquis 10 mg twice a day until Saturday, then transition to 5 mg twice a day 2. New prescription sent to [facility] pharmacy in house 3. Repeat Echocardiogram ordered, unable to obtain report. Patient instructed she needs an outpatient echocardiogram within the next week 4. Smoking cessation 5. Weight loss 6. Patient may be discharged home from the vascular surgical standpoint, with follow-up as previously scheduled 7. Discussed importance with patient for medical and medication compliance, patient seemingly understands The impression and plan of care has been dictated as directed. Dr. Prajapati I performed a history and examination of this patient, discussed the same with the dictator. I agree with the dictator's note ,documented as a scribe. Any additional findings or plans will be noted.
[2020-08-02 11:58] LABS: Glucose,Whole Blood 145 mg/dL (75-99)
--- NOTE | 2020-08-02 15:03 | PN ---
PROGRESS NOTE DATE OF SERVICE: 08/02/2020 This 40-year-old woman was admitted with shortness of bronchial asthma, acute exacerbation closely monitored at this time. The patient is on IV steroids and bronchodilators. The patient is extremely short of breath. The patient actually came back because of failure of outpatient treatment. A 2D echo with Doppler showed ejection fraction about 50-55 percent. Mild tricuspid regurgitation also noted. PAST MEDICAL HISTORY: Reviewed. REVIEW OF SYSTEMS: CARDIOVASCULAR system: No angina or palpitations. RESPIRATORY: As mentioned earlier. GI no nausea or vomiting. no dysuria. NERVOUS SYSTEM: No numbness, weakness. CURRENT MEDICATIONS: Reviewed and include: Abbot, DuoNeb, Elavil, Norvasc, Eliquis, Artificial Tears, Voltaren gel, folic acid. Doses reviewed. PHYSICAL EXAMINATION: The patient is alert and oriented times three. Pulse 108, blood pressure 130/74. Respirations 18, temperature 98.2, pulse ox 98% on 2 L. HEENT: Conjunctivae normal. NECK: No JVD. CARDIOVASCULAR: S1, S2 muffled. RESPIRATION: Breath sounds diminished in the bases. A few scattered rhonchi and crackles. ABDOMEN: Soft, obese, nontender. NERVOUS SYSTEM: No focal deficits. LABS: WBC 20.2, hemoglobin 14.2. Glucose 155. ASSESSMENT: 1. Shortness of breath possibly multifactorial with acute bronchial asthma, chronic obstructive pulmonary disease acute exacerbation. 2. Change in mental status acute metabolic encephalopathy secondary to hypercarbia and excessive medications. 3. Increased WBC. 4. History of recent pulmonary embolism status post thrombolysis and the EKOS system. 5. On direct anticoagulants at this time. 6. Increased WBC. 7. Heparin monitoring. 8. Hypokalemia. 9. History of asthma, chronic obstructive pulmonary disease. 10.History of gastroesophageal reflux disease. 11.Degenerative joint disease. 12.History of rheumatoid arthritis. 13.History of migraine. 14.History of cholecystectomy. 15.History of anxiety, bipolar depression, PTSD. 16.History of nicotine dependence, continued ongoing. 17.Morbid obesity with body mass index 65.4. RECOMMENDATIONS AND DISCUSSION: Recommend to continue current medications, symptomatic treatment. Otherwise, at this time, I recommend continue with IV steroids. Continue with intensive bronchodilators. Monitor blood sugars closely. Otherwise, closely follow with Pulmonary. Guarded prognosis because of multiple complex medical issues. Further recommendations to follow. A copy of this dictation being forwarded to Dr. Demi Topete. ELVIRA / NEELAMN: [id number] /
[2020-08-02 17:08] LABS: Glucose,Whole Blood 142 mg/dL (75-99)
[2020-08-02] MEDS: methylPREDNISolone SOD SUCCI 125 MG/2 ML VIAL IV SCH ×2 (19:07→23:05)
[2020-08-02 20:27] LABS: Glucose,Whole Blood 231 mg/dL (75-99)
[2020-08-02] MEDS: AMITRIPTYLINE HCL 50 MG TAB PO SCH (20:58)
[2020-08-03] MEDS ORDERED: ACETAMINOPHEN TAB 325 MG TAB PO PRN (04:13)
[2020-08-03] MEDS: methylPREDNISolone SOD SUCCI 125 MG/2 ML VIAL IV SCH ×4 (05:29→23:13)
[2020-08-03 06:56] LABS: Glucose,Whole Blood 294 mg/dL (75-99)
[2020-08-03] MEDS: CHOLECALCIFEROL 25 MCG (1000 IU) TABLET PO SCH (08:30)
[2020-08-03] MEDS: PREGABALIN 100 MG CAP PO SCH ×2 (08:30→20:02)
[2020-08-03] MEDS: metFORMIN 500 MG TAB PO SCH (08:30)
[2020-08-03] MEDS: amLODIPine 10 MG TAB PO SCH (08:30)
[2020-08-03] MEDS: PANTOPRAZOLE 40 MG TABLET PO SCH (08:30)
[2020-08-03] MEDS: APIXABAN 5 MG TAB PO SCH ×2 (08:30→20:02)
[2020-08-03] MEDS: POTASSIUM CHLORIDE ER 10 MEQ TAB.ER.PRT PO SCH (08:30)
[2020-08-03] MEDS: FOLIC ACID 1 MG TAB PO SCH (08:30)
[2020-08-03] MEDS: DICLOFENAC SODIUM GEL 100 GM TUBE TOPICAL SCH ×3 (08:30→20:03)
[2020-08-03] MEDS: HYDROcodone/APAP 7.5-325MG 1 EACH TAB PO PRN (08:32)
[2020-08-03] MEDS: INSULIN ASPART (NovoLOG) 100 UNIT/ML VIAL SQ SCH ×4 (08:32→20:53)
[2020-08-03] MEDS: IPRATROPIUM-ALBUTEROL 3 ML NEB INHALATION SCH ×4 (09:09→20:50)
--- NOTE | 2020-08-03 09:21 | P.PN ---
Subjective Progress Note Date: 08/03/20 Principal diagnosis: Bilateral pulmonary emboli Patient is seen and examined lying in bed. She is on 2 L nasal cannula. No acute changes through the night. She denies any shortness breath or chest pain. Objective - Vital Signs Vital signs: Vital Signs Temp 98.1 F 08/03/20 08:27 Pulse 110 H 08/03/20 08:27 Resp 18 08/03/20 08:27 BP 135/75 08/03/20 08:27 Pulse Ox 90 L 08/03/20 08:27 Intake & Output 08/02/20 08/03/20 08/03/20 18:59 06:59 18:59 Intake Total 760 Balance 760 Weight 167 kg Intake: Oral 760 Other: Voiding Method Bedside Commode Toilet Bedside Commode # Voids 3 - Exam General appearance: The patient is alert, oriented, appears in no acute distress. Morbidly obese HET: Head is normocephalic and atraumatic. Neck: Supple without lymphadenopathy. Trachea midline. Heart: S1 S2. Regular rate and rhythm. Lungs: No crackles or wheezes are heard. Abdomen: Soft, nontender, nondistended. Extremities: Normal skin color and turgor. Neurological: No focal deficits. Alert and oriented 3. - Labs CBC & Chem 7: 08/02/20 07:26 08/02/20 07:26 Labs: Abnormal Lab Results - Last 24 Hours (Table) 08/02/20 08/02/20 08/02/20 Range/Units 11:44 16:51 20:25 POC Glucose (mg/dL) 145 H 142 H 231 H (75-99) mg/dL 08/03/20 Range/Units 06:55 POC Glucose (mg/dL) 294 H (75-99) mg/dL Assessment and Plan Assessment: 1. Bilateral pulmonary emboli status post pulmonary pharmacal mechanical thrombolysis with EKOS (07/26/20) 2. Shortness of breath 3. Morbidly obese 4. Nicotine dependence 5. History of COPD 6. Likely has a component of obstructive sleep apnea, recommend outpatient follow-up Plan: 1. Continue Eliquis 10 mg twice a day until Saturday, then transition to 5 mg twice a day 2. New prescription sent to [facility] pharmacy in house 3. Repeat Echocardiogram ordered, unable to obtain report. Patient instructed she needs an outpatient echocardiogram within the next week 4. Smoking cessation 5. Weight loss 6. Patient may be discharged home from the vascular surgical standpoint, with follow-up as previously scheduled 7. Discussed importance with patient for medical and medication compliance, patient seemingly understands The impression and plan of care has been dictated as directed. Dr. Prajapati I performed a history and examination of this patient, discussed the same with the dictator. I agree with the dictator's note ,documented as a scribe. Any additional findings or plans will be noted.
[2020-08-03 11:51] LABS: Glucose,Whole Blood 253 mg/dL (75-99)
[2020-08-03 17:01] LABS: Glucose,Whole Blood 152 mg/dL (75-99)
--- NOTE | 2020-08-03 18:21 | PN ---
PROGRESS NOTE DATE OF SERVICE: 08/03/2020 This is a 40-year-old woman who was admitted with shortness of breath, possibly multifactorial, is being closely monitored. No chest pain. No palpitations. No fever. PHYSICAL EXAMINATION: Alert and oriented x3. Pulse is 111, blood pressure 100/72, respiration 18, temperature 97.8, pulse ox 98% on room air. HEENT: Conjunctivae normal. Oral mucosa moist. NECK: No jugular venous distention. No lymph node enlargement. CARDIOVASCULAR: S1, S2, muffled. No S3, no S4, RESPIRATORY: Diminished breath sounds at the bases. A few scattered rhonchi and crackles. ABDOMEN: Soft, nontender. LEGS: No edema, no swelling. NERVOUS SYSTEM: No focal deficits. LAB STUDIES: WBC 20. Accu-Cheks noted. ASSESSMENT: 1. Shortness of breath possibly multifactorial with acute bronchial asthma, chronic obstructive pulmonary disease acute exacerbation. 2. Change in mental status, acute metabolic encephalopathy secondary to hypercarbia as well as excessive medication. 3. Increased WBC. 4. History of recent pulmonary embolism status post thrombolysis and EKOS system. 5. On direct anticoagulation at this time. 6. Increased WBC. 7. Heparin monitor. 8. Hypokalemia. 9. History of chronic obstructive pulmonary disease. 10.History of GERD. 11.History of DJD. 12.History of rheumatoid arthritis. 13.History of migraines. 14.History of cholecystectomy. 15.History of anxiety, bipolar depression, PTSD. 16.History of nicotine dependence, continued, ongoing. 17.Morbid obesity with body mass index of 65.4. RECOMMENDATIONS AND DISCUSSION: I recommend to continue current medications, continue symptomatic treatment, continue with Eliquis. Otherwise, continue the rest of medication. Continue steroids. Monitor blood sugars closely. Continue the bronchodilators. Prognosis guarded because of multiple complex medical issues. Further recommendations to follow. MMODL / IJN: [id number] /
--- NOTE | 2020-08-03 19:21 | P.PN ---
Subjective Progress Note Date: 08/03/20 Principal diagnosis: Bilateral pulmonary embolism Left-sided pleural effusion History of prior pulmonary embolism with thrombectomy Noncompliance with anticoagulant 08/03/2020, patient seen eval reexamined being ambulated, that left some shortness of breath requiring supplemental oxygen, denies any chest pain, respiratory status not stable on supplemental oxygen, patient back on high-dose Eliquis Patient is a 40-year-old female came into the hospital with increasing shortness of breath and chest pain of 2 day duration, patient has a recent history of thrombectomy and has been prescribed and liquids however she did not get any coitus, she was found to be somnolent and lethargic at home oxygen saturation was 80% EMS were called, patient does not know where the surgery occurred, CT scan of the chest positive for bilateral pulmonary embolism more so on the right side compared to left side along with left-sided pleural effusion which is stable, Objective - Vital Signs Vital signs: Vital Signs Temp 97.8 F 08/03/20 14:00 Pulse 106 H 08/03/20 19:00 Resp 16 08/03/20 19:00 BP 138/71 08/03/20 19:00 Pulse Ox 93 L 08/03/20 19:00 Intake & Output 08/03/20 08/03/20 08/04/20 06:59 18:59 06:59 Intake Total 960 Balance 960 Weight 167 kg Intake: Oral 960 Other: Voiding Method Toilet Bedside Commode # Voids 3 3 - Labs CBC & Chem 7: 08/02/20 07:26 08/02/20 07:26 Labs: Abnormal Lab Results - Last 24 Hours (Table) 08/02/20 08/03/20 08/03/20 Range/Units 20:25 06:55 11:50 POC Glucose (mg/dL) 231 H 294 H 253 H (75-99) mg/dL 08/03/20 Range/Units 16:59 POC Glucose (mg/dL) 152 H (75-99) mg/dL Assessment and Plan Assessment: Bilateral pulmonary embolism Left-sided pleural effusion History of prior pulmonary embolism with thrombectomy Noncompliance with anticoagulant Plan: Continue high-dose diuretic oral anticoagulant Increase activity as tolerated As needed bronchodilators Agree with discharge planning follow-up on outpatient basis Further recommendations pending plan of care as per clinical response of patient Time with Patient: Greater than 30
[2020-08-03] MEDS: AMITRIPTYLINE HCL 50 MG TAB PO SCH (20:02)
[2020-08-03 20:57] LABS: Glucose,Whole Blood 236 mg/dL (75-99)
[2020-08-04] MEDS: methylPREDNISolone SOD SUCCI 125 MG/2 ML VIAL IV SCH ×2 (05:54→13:09)
[2020-08-04 07:02] LABS: Glucose,Whole Blood 187 mg/dL (75-99)
[2020-08-04] MEDS: FOLIC ACID 1 MG TAB PO SCH (07:44)
[2020-08-04] MEDS: CHOLECALCIFEROL 25 MCG (1000 IU) TABLET PO SCH (07:44)
[2020-08-04] MEDS: PANTOPRAZOLE 40 MG TABLET PO SCH (07:44)
[2020-08-04 07:45] VITALS: BP 153/98; RESP 18; TEMP 98.1
[2020-08-04] MEDS: metFORMIN 500 MG TAB PO SCH (07:47)
[2020-08-04] MEDS: APIXABAN 5 MG TAB PO SCH (07:47)
[2020-08-04] MEDS: PREGABALIN 100 MG CAP PO SCH (07:47)
[2020-08-04] MEDS: amLODIPine 10 MG TAB PO SCH (07:47)
[2020-08-04] MEDS: POTASSIUM CHLORIDE ER 10 MEQ TAB.ER.PRT PO SCH (07:47)
[2020-08-04] MEDS: INSULIN ASPART (NovoLOG) 100 UNIT/ML VIAL SQ SCH ×2 (07:48→13:10)
[2020-08-04] MEDS: DICLOFENAC SODIUM GEL 100 GM TUBE TOPICAL SCH (07:50)
[2020-08-04] MEDS: IPRATROPIUM-ALBUTEROL 3 ML NEB INHALATION SCH ×2 (08:29→12:13)
[2020-08-04 09:51] VITALS: PULSE 120
--- NOTE | 2020-08-04 11:04 | P.PN ---
Subjective Progress Note Date: 08/04/20 Principal diagnosis: Bilateral pulmonary embolism Left-sided pleural effusion History of prior pulmonary embolism with thrombectomy Noncompliance with anticoagulant 08/04/2020, patient seen eval examined awake and alert, on 2 L oxygen, oxygen being arranged for home, patient has been resumed on direct oral anticoagulant and other medicines, denies any chest pain, continue to get bronchodilator, patient has a nebulizer machine at home, patient to be evaluated for sleep diso rder breathing and sleep apnea as outpatient 08/03/2020, patient seen eval reexamined being ambulated, that left some shortness of breath requiring supplemental oxygen, denies any chest pain, respiratory status not stable on supplemental oxygen, patient back on high-dose Eliquis Patient is a 40-year-old female came into the hospital with increasing shortness of breath and chest pain of 2 day duration, patient has a recent history of thrombectomy and has been prescribed and liquids however she did not get any coitus, she was found to be somnolent and lethargic at home oxygen saturation was 80% EMS were called, patient does not know where the surgery occurred, CT scan of the chest positive for bilateral pulmonary embolism more so on the right side compared to left side along with left-sided pleural effusion which is stable, Objective - Vital Signs Vital signs: Vital Signs Temp 98.1 F 08/04/20 07:44 Pulse 120 H 08/04/20 09:50 Resp 18 08/04/20 07:44 BP 153/98 08/04/20 07:44 Pulse Ox 87 L 08/04/20 09:50 Intake & Output 08/03/20 08/04/20 08/04/20 18:59 06:59 18:59 Intake Total 960 480 Balance 960 480 Weight 166.5 kg Intake: Oral 960 480 Other: Voiding Method Toilet Bedside Commode # Voids 3 2 - Exam - Constitutional General appearance: cooperative, disheveled - EENT Eyes: PERRLA Ears: bilateral: normal - Neck Neck: normal ROM Carotids: bilateral: upstroke normal Thyroid: bilateral: normal size - Respiratory Respiratory: bilateral: CTA, diminished - Cardiovascular Rhythm: regular Heart sounds: normal: S1, S2 - Gastrointestinal General gastrointestinal: normal bowel sounds - Neurologic Neurologic: CNII-XII intact - Musculoskeletal Musculoskeletal: gait normal, generalized weakness, strength equal bilaterally - Psychiatric Psychiatric: A&O x's 3, appropriate affect, intact judgment & insight - Labs CBC & Chem 7: 08/02/20 07:26 08/02/20 07:26 Labs: Abnormal Lab Results - Last 24 Hours (Table) 08/03/20 08/03/20 08/03/20 Range/Units 11:50 16:59 20:50 POC Glucose (mg/dL) 253 H 152 H 236 H (75-99) mg/dL 08/04/20 Range/Units 07:01 POC Glucose (mg/dL) 187 H (75-99) mg/dL Assessment and Plan Assessment: Bilateral pulmonary embolism Left-sided pleural effusion History of prior pulmonary embolism with thrombectomy Noncompliance with anticoagulant Plan: Continue high-dose diuretic oral anticoagulant Increase activity as tolerated As needed bronchodilators Agree with discharge planning follow-up on outpatient basis Further recommendations pending plan of care as per clinical response of patient Time with Patient: Greater than 30
[2020-08-04 11:36] LABS: Glucose,Whole Blood 244 mg/dL (75-99)
--- NOTE | 2020-08-04 15:46 | P.DS ---
Providers Date of admission: 07/31/20 18:48 Expected date of discharge: 08/04/20 Attending physician: Branden Bolaños Consults: 07/31/20 18:47 Consult Physician Urgent Consulting Provider: Briana Prajapati Consult Reason/Comments: Pulmonary embolism Do you want consulting provider notified?: Yes 08/02/20 11:27 Consult Physician Routine Consulting Provider: Barrera Hinojosa Consult Reason/Comments: pt known to you at office Do you want consulting provider notified?: Yes Primary care physician: Demi Topete Hospital Course: Final diagnosis Shortness of breath possibly multifactorial with acute bronchial asthma, chronic obstructive pulmonary disease, acute exacerbation Change in mental status, acute metabolic encephalopathy secondary to hypercarbia as well as excessive medications Increased WBC History of recent pulmonary embolism status post thrombolysis an EKOS system On direct anticoagulation at this time Heparin monitoring Hypokalemia History of chronic obstructive pulmonary disease History of GERD History of DJD history of rheumatoid arthritis history of migraines history of cholecystectomy history of anxiety, bipolar depression, PTSD history of nicotine dependence, continuous, ongoing Morbid obesity with a body mass index of 71.7 Discharge disposition Patient is being discharged in a stable condition with guarded prognosis to home. Patient will follow-up with Dr. Topete in the outpatient setting upon discharge. Patient is also to follow-up with vascular surgery Dr. Prajapati, and pulmonary Dr. Hinojosa, and cardiology Dr. Carrasco in 1 week. Patient will continue on nebulized treatments along with prednisone taper and will continue with Eliquis 10 mg twice daily through Saturday and then start 5 mg twice daily thereafter. Total time taken is greater than 35 minutes. Hospital course This is a 40-year-old female who was recently admitted with shortness of breath, possibly multifactorial and was being closely monitored. Patient was recently admitted and discharged and was to start Eliquis and never picked up the prescription at the pharmacy and subsequently returned to the hospital with increasing shortness of breath. Patient was being evaluated by pulmonary along with vascular surgery and cardiology and will need outpatient cardiology follow- up in one week along with vascular surgery as discussed and patient will also follow-up with pulmonary outpatient for further testing. Patient does have a nebulizer at home and will continue with breathing inhalational treatments along with a prednisone taper upon discharge. Home O2 eval was done and patient oxygen saturation was 87% with exertion and will require 2 L via nasal cannula secondary to COPD. Patient is asking if she can go home today. Currently no reports of chest pain, worsening shortness of breath, or palpitations. Patient is afebrile. No reports of nausea or vomiting noted. Patient will be discharged home today. On exam vital signs are stable. Cardio S1, S2 are muffled. Respiratory system shows diminished breath sounds at the bases with scattered rhonchi and minimal expiratory wheezing noted. Abdomen is soft , obese, and nontender. Nervous system shows no focal deficits. Please refer to medication reconciliation sheet for a list of medications. Patient Condition at Discharge: Stable Plan - Discharge Summary Discharge Rx Participant: Yes New Discharge Prescriptions: New Apixaban [Eliquis Starter Pack (for VTE)] 0 mg PO DIRECTED 30 Days #1 pack Acetaminophen Tab [Tylenol] 650 mg PO Q4HR PRN tab PRN Reason: Fever And/ Or Pain Pregabalin [Lyrica] 100 mg PO BID #12 cap predniSONE 10 mg PO DIRECTED #30 tab Continue Methotrexate/Pf [Rasuvo 25 mg/0.5 ml Autoinj] 25 mg SQ SA Hydrocodone/Acetaminophen [[place] 7.5-325] 1 tab PO BID PRN PRN Reason: Pain Omeprazole [PriLOSEC] 20 mg PO AC-BRKFST Folic Acid 1 mg PO DAILY Amitriptyline HCl [Elavil] 150 mg PO HS medroxyPROGESTERone [Depo-Provera] 150 mg IM Q90D Artificial Tears-Hypromellose [Artificial Tear Drops] 1 drops BOTH EYES TID PRN PRN Reason: Dry Eye(S) Potassium Chloride 10 meq PO DAILY metFORMIN HCL [Glucophage] 500 mg PO DAILY Sarilumab [Kevzara] 200 mg SQ Q14D Albuterol Inhaler [Ventolin Hfa Inhaler] 2 puff INHALATION RT-Q4H PRN PRN Reason: Shortness Of Breath Cholecalciferol [Vitamin D3 (25 Mcg = 1000 Iu)] 50 mcg PO DAILY Loratadine [Claritin] 10 mg PO DAILY Apixaban [Eliquis Starter Pack (for VTE)] See Taper PO DIRECTED Diclofenac Sodium Gel [Voltaren Gel] 2 gm TOPICAL TID rOPINIRole HCL [Requip] 3 mg PO HS amLODIPine [Norvasc] 10 mg PO DAILY #10 tab Ipratropium-Albuterol Nebulize [Duoneb 0.5 mg-3 mg/3 ml Soln] 3 ml INHALATION RT-QID 30 Days #120 neb Discontinued DULoxetine HCL [Cymbalta] 60 mg PO DAILY Pregabalin [Lyrica] 300 mg PO BID Torsemide [Demadex] 40 mg PO DAILY Discharge Medication List Amitriptyline HCl [Elavil] 150 mg PO HS 02/20/19 [History] Folic Acid 1 mg PO DAILY 02/20/19 [History] Hydrocodone/Acetaminophen [[place] 7.5-325] 1 tab PO BID PRN 02/20/19 [History] Methotrexate/Pf [Rasuvo 25 mg/0.5 ml Autoinj] 25 mg SQ SA 02/20/19 [History] Omeprazole [PriLOSEC] 20 mg PO AC-BRKFST 02/20/19 [History] medroxyPROGESTERone [Depo-Provera] 150 mg IM Q90D 02/20/19 [History] Artificial Tears-Hypromellose [Artificial Tear Drops] 1 drops BOTH EYES TID PRN 03/19/19 [History] Potassium Chloride 10 meq PO DAILY 03/19/19 [History] Albuterol Inhaler [Ventolin Hfa Inhaler] 2 puff INHALATION RT-Q4H PRN 07/26/20 [History] Cholecalciferol [Vitamin D3 (25 Mcg = 1000 Iu)] 50 mcg PO DAILY 07/26/20 [History] Diclofenac Sodium Gel [Voltaren Gel] 2 gm TOPICAL TID 07/26/20 [History] Loratadine [Claritin] 10 mg PO DAILY 07/26/20 [History] Sarilumab [Kevzara] 200 mg SQ Q14D 07/26/20 [History] metFORMIN HCL [Glucophage] 500 mg PO DAILY 07/26/20 [History] rOPINIRole HCL [Requip] 3 mg PO HS 07/26/20 [History] amLODIPine [Norvasc] 10 mg PO DAILY #10 tab 07/29/20 [Rx] Apixaban [Eliquis Starter Pack (for VTE)] See Taper PO DIRECTED 07/31/20 [History] Apixaban [Eliquis Starter Pack (for VTE)] 0 mg PO DIRECTED 30 Days #1 pack 08/01/20 [Rx] Acetaminophen Tab [Tylenol] 650 mg PO Q4HR PRN tab 08/04/20 [Rx] Ipratropium-Albuterol Nebulize [Duoneb 0.5 mg-3 mg/3 ml Soln] 3 ml INHALATION RT-QID 30 Days #120 neb 08/04/20 [Rx] Pregabalin [Lyrica] 100 mg PO BID #12 cap 08/04/20 [Rx] predniSONE 10 mg PO DIRECTED #30 tab 08/04/20 [Rx] Follow up Appointment(s)/Referral(s): Flex Carrasco DO [STAFF PHYSICIAN] - 08/15/20 3:00 pm (patient to go to [email or web address] office for Dr. Zhou and after jone patient to Schedule for Echocardiogram) Briana Prajapati DO [STAFF PHYSICIAN] - 1 Week (Please call office for your appointment.) Demi Topete MD [Primary Care Provider] - 08/11/20 8:45 am Barrera Hinojosa MD [STAFF PHYSICIAN] - 08/22/20 12:45 pm Trinity Marin [NON-STAFF] - (*Please call [employer] to deliver oxygen concentrator to your home. The portable tank will run out within 3-6 hours. ) Ambulatory/Diagnostic Orders: Complete Blood Count w/diff [LAB.AMB] Time Frame: 2 Days, Location: None Selected Patient Instructions/Handouts: How to Stop Smoking (DC) Activity/Diet/Wound Care/Special Instructions: Eliquis script is filled at [facility] location - please be sure patient gets prior to discharge Patient requires home oxygen for hypoxia related to COPD. Continue with Eliquis 10mg twice daily through Saturday and then start 5 mg twice daily on 08/08/2020 Activity Limited until follow-up Follow-up with primary care provider upon discharge continue with medications as prescribed Repeat labs in 2-3 days Follow-up with cardiology outpatient Follow-up with vascular surgery outpatient follow up with pulmonary outpatient Continue with heart healthy diet Discharge Disposition: HOME SELF-CARE
== END 2020-08-04 14:07 | disposition home or self-care (01) | DRG 175 ==
LOC: EC 17:02 → 3SCARD 18:48 → 4SSUR 08-02 22:46
PROVIDERS: ADMIT Hospitalist; ATTEND Hospitalist
DX: I26.99 Other pulmonary embolism without acute cor pulmonale (principal); G93.41 Metabolic encephalopathy; J44.1 Chronic obstructive pulmonary disease with (acute) exacerbation; J45.901 Unspecified asthma with (acute) exacerbation; J90 Pleural effusion, not elsewhere classified; Z68.44 Body mass index [BMI] 60.0-69.9, adult; R09.02 Hypoxemia; Z20.822 Contact with and (suspected) exposure to COVID-19; E11.9 Type 2 diabetes mellitus without complications; T50.915A Adverse effect of multiple unspecified drugs, medicaments and biological substances, initial encounter; X58.XXXA Exposure to other specified factors, initial encounter; E87.6 Hypokalemia; G47.33 Obstructive sleep apnea (adult) (pediatric); E66.01 Morbid (severe) obesity due to excess calories; M06.9 Rheumatoid arthritis, unspecified; M19.90 Unspecified osteoarthritis, unspecified site; F17.210 Nicotine dependence, cigarettes, uncomplicated; I07.1 Rheumatic tricuspid insufficiency; K21.9 Gastro-esophageal reflux disease without esophagitis; R00.0 Tachycardia, unspecified; F43.10 Post-traumatic stress disorder, unspecified; F60.9 Personality disorder, unspecified; Z86.79 Personal history of other diseases of the circulatory system; Z90.49 Acquired absence of other specified parts of digestive tract; Z79.01 Long term (current) use of anticoagulants; Z79.84 Long term (current) use of oral hypoglycemic drugs; Z79.899 Other long term (current) drug therapy; Z86.711 Personal history of pulmonary embolism; Z91.14 Patient's other noncompliance with medication regimen; Z71.3 Dietary counseling and surveillance; Z71.6 Tobacco abuse counseling; Z87.19 Personal history of other diseases of the digestive system
CPT/HCPCS: 36415; 71275; 80048; 80053; 82150; 83605; 83735; 84145; 84484; 84703; 85025; 85610; 85730; 87635; 93005; 93308; 94640; 94760; 99285

== ENCOUNTER → 2020-09-26 | Outpatient (CLI) | payer MEDICARE, OTHER ==
--- NOTE | 2020-10-03 10:28 | MM ---
Reason for exam: screening (asymptomatic). Baseline mammogram. History: Taking hormonal contraceptives beginning at age 13. Physical Findings: Nurse did not find any significant physical abnormalities on exam. MG 3D Screening Mammo W/Cad Bilateral CC and MLO view(s) were taken. There are scattered fibroglandular densities. There is no discrete abnormality. ASSESSMENT: Negative, BI-RAD 1 RECOMMENDATION: Routine screening mammogram of both breasts in 1 year.
== END | disposition home or self-care (01) ==
LOC: RADMAMWWP 15:04
PROVIDERS: ATTEND Nurse Practitioner Family
DX: Z12.31 Encounter for screening mammogram for malignant neoplasm of breast (principal); Z79.3 Long term (current) use of hormonal contraceptives
CPT/HCPCS: 77063; 77067

== ENCOUNTER → 2021-09-21 | Outpatient (CLI) | payer MEDICARE, OTHER ==
--- NOTE | 2021-09-22 14:44 | CT ---
EXAMINATION TYPE: CT chest w con DATE OF EXAM: 09/21/2021 COMPARISON: CT chest 07/31/2020 HISTORY: Chest pain on breathing CT DLP: 824.2 mGycm Automated exposure control for dose reduction was used. CONTRAST: CT scan of the chest is performed with IV Contrast, patient injected with 100ml mL of Isovue 300. FINDINGS: LUNGS: The lungs are grossly clear, there is no concerning parenchymal mass or nodule identified. Mul tiple calcified granuloma present within the lungs. There is no pleural effusion or pneumothorax seen . The tracheobronchial tree is patent. MEDIASTINUM: There are no greater than 1 cm mediastinal lymph nodes. Punctate metallic densities are present in the precarinal region, right hilar nodes. Some right hilar adenopathy is present Bronchial wall thickening is present. No pericardial effusion is seen. AORTA: No additional significant abnormality is seen. OTHER: The liver shows low attenuation likely due to hepatic steatosis. Patient is post cholecystect imelda, liver may be enlarged. Old healed left-sided rib fractures are present. IMPRESSION: Old granulomatous disease. Correlate for bronchitis, reactive airways disease. Probable hepatic steatosis as described.
== END | disposition home or self-care (01) ==
LOC: RADCTMAIN 16:40
PROVIDERS: ATTEND Family Medicine
DX: R07.1 Chest pain on breathing (principal); Z86.711 Personal history of pulmonary embolism
CPT/HCPCS: 71260; Q9967

== ENCOUNTER → 2023-06-05 | Outpatient (CLI) | payer MEDICARE, OTHER ==
--- NOTE | 2023-06-05 11:07 | CT ---
EXAMINATION TYPE: CT chest wo/w con DATE OF EXAM: 06/05/2023 COMPARISON: 09/21/2021 HISTORY: HX OF PE IN 2019 PT C/O LUNG PAIN AND LIVIA RECENTLY. CT DLP: 1155.80 mGycm, Automated exposure control for dose reduction was used. CONTRAST: Performed injected with 100ml mL of Isovue 300. TECHNIQUE: Axial images were obtained at 5 mm thick sections. Reconstructed images are reviewed on [employer] computer in the coronal plane. FINDINGS: Portion of the thyroid visualized is normal. There is stable 0.5 cm calcification posterior lateral left upper lung field compatible with granulom a. There is a stable 0.4 cm calcification posterior right apex. There is a nodular density near the p eriphery of the right midlung with central calcification measuring 1.2 cm this appears new from francois rison. There is a punctate calcification posterior left lung 0.4 cm. Series 3 image 41. This was pres ent previously punctate calcifications in the posterior right lung base measuring 0.6 cm. Series 3 im age 46. There is a 0.4 cm calcification posterior lateral right lower lung field, series 3 image 37 There is a cavitary lesion anterior right upper lung field measuring 3.4 x 2.2 cm. This is new. There is a 0.5 cm density posterior right lung. Series 3 image 25. Near by 0.4 cm densities in the pe riphery of the posterior right lung, series 3 image 26. No enlarged mediastinal or hilar adenopathy is evident. Some calcified lymphadenopathy may be in th e right infrahilar region and within the mediastinum The ascending aorta diameter at the level of the main pulmonary artery is 2.9 cm. The main pulmonary artery diameter at the bifurcation is 2.[address] sections are obtained through the upper abdomen. Abdomen is essentially unremarkable. Following intravenous administration of contrast, no abnormal enhancement is evident. No suspicious c hanges to suggest acute pulmonary embolism. IMPRESSION: 1. No acute pulmonary embolism. 2. New cavitary lesion right anterior lung field. Additional workup with PET CT is recommended. 3. There is a new nodule measuring 1.2 cm contains central calcification could be a granuloma. PET/C T could further evaluate this finding. 4. Enlarged mediastinal lymph node. 5. Multiple scattered bilateral calcifications within the lung pizano and within lymph nodes. Correla te for granulomatous disease.
--- NOTE | 2023-06-06 14:07 | US ---
EXAMINATION TYPE: US pelvis complete transvag DATE OF EXAM: 06/05/2023 COMPARISON: NONE CLINICAL INDICATION: Female, 43 years old with history of R10.2 PELVIC/PERINEAL PAIN; patient states pelvic pain for years, very irregular cycles, has a cycle every 7 to 13 months, , elevated WBC fo r years TECHNIQUE: TA/TV. Transabdominal sonographic images of the pelvis were acquired. Transvaginal sono graphic images Date of LMP: last month EXAM MEASUREMENTS: Uterus: 8.3 x 4.4 x 3.6 cm Endometrial Stripe: 1.7 cm Right Ovary: 2.6 x 4.0 x 2.4 cm Left Ovary: 2.9 x 2.6 x 2.7 cm large panis makes imaging difficult, patient very tender 1. Uterus: Anteverted wnl 2. Endometrium: possibly thickened, with patient h/o of only 1 cycle per year it is hard to know for sure 3. Right Ovary: 1.9 x 2.8 x 2.2cm, possible hemorrhagic cyst seen only transabdominal, not seen TV 4. Left Ovary: wnl 5. Bilateral Adnexa: wnl 6. Posterior cul-de-sac: wnl IMPRESSION: 1. The endometrium is thickened measuring 1.7 cm with associated endometrial hyperplasia. Although, e ndometrial carcinoma could not be excluded. Correlate clinically. 2. There is a 1.9 cm x 2.8 cm right ovarian hypoechoic lesion. Does not meet the criteria of a simple cyst. Differential diagnosis would include a hemorrhagic cyst present. Other etiologies including en dometrioma or ovarian neoplasm not excluded recommend follow-up to resolution in 6-8 weeks.
== END | disposition home or self-care (01) ==
LOC: RADCTMAIN 10:02
PROVIDERS: ATTEND Family Medicine
DX: J98.4 Other disorders of lung (principal); R91.1 Solitary pulmonary nodule; R59.0 Localized enlarged lymph nodes; Z86.711 Personal history of pulmonary embolism
CPT/HCPCS: 76856; 76830; 71270; Q9967

== ENCOUNTER → 2023-07-11 | Outpatient (CLI) | payer MEDICARE, OTHER ==
--- NOTE | 2023-07-11 17:41 | US ---
EXAMINATION TYPE: US abdomen complete DATE OF EXAM: 07/11/2023 COMPARISON: 07/02/2016 CLINICAL INDICATION: Female, 43 years old with history of N85.00 ENDO HYPERPLASI A N83.8 OV MASS Z12.31; Abdomen pain TECHNIQUE: Multiple sonographic images of the abdomen are obtained. FINDINGS: EXAM MEASUREMENTS: Liver Length: 20.1 cm CBD: 0.7 cm Spleen: 11.1 cm Right Kidney: 11.0 x 5.4 x 4.8 cm Left Kidney: 10.4 x 5.4 x 5.6 cm Difficult and limited study due to patient body habitus Pancreas: visualized portions wnl, limited by overlying midline bowel gas Liver: enlarged, increased attenuation, decreased visualization of vessels suggestive of fatty infil trate Gallbladder: surgically absent Evidence for sonographic Macario's sign: no CBD: wnl Spleen: wnl Right Kidney: wnl Left Kidney: 2.6 x 2.2 x 2.5cm hypoechoic area inferior pole Upper IVC: wnl Abd Aorta: visualized portions wnl, limited by overlying midline bowel gas IMPRESSION: 1. Limited evaluation of pancreas due to bowel gas. 2. Cholecystectomy but no biliary ductal dilatation. 3. Hepatomegaly with echotexture suggestive of fatty infiltration.
--- NOTE | 2023-07-11 17:45 | US ---
EXAMINATION TYPE: US pelvic complete DATE OF EXAM: 07/11/2023 COMPARISON: 06/05/2023 CLINICAL INDICATION: Female, 43 years old with history of N85.00 ENDO HYPERPLASIA N83.8 OV MASS Z12.3 1; Pelvic pain TECHNIQUE: Transabdominal sonographic images of the pelvis were acquired. Transvaginal sonographi c images were medically necessary to better assess the following anatomy: endometrium and ovaries Date of LMP: couple months ago EXAM MEASUREMENTS: Uterus: 8.3 x 3.6 x 4.4 cm Right Ovary: 2.6 x 2.4 x 4.0 cm Left Ovary: 2.9 x 2.7 x 2.6 cm Difficult and limited study due to patient body habitus 1. Uterus: mildly heterogeneous 2. Endometrium: 0.5cm 3. Right Ovary: not seen due to overlying bowel gas 4. Left Ovary: not seen due to overlying bowel gas 5. Bilateral Adnexa: wnl 6. Posterior cul-de-sac: wnl IMPRESSION: 1. Endometrial stripe 0.5 cm and within normal limits. 2. No uterine mass. 3. Right ovarian hypoechoic lesion seen in the prior study not evaluated on the current study due to overlying bowel gas. The ovaries cannot be evaluated in the current study. MRI of the pelvis would be useful for further evaluation if clinically indicated.
--- NOTE | 2023-07-11 18:59 | MM ---
Reason for Exam: Screening (asymptomatic). Last mammogram was performed 1 year(s) and 9 month(s) ago. Patient History: Menarche at age 10. First Full-Term at age 20. Hormonal Contraceptives, starting at age 13 for 19 years. Last menstrual period: 04/10/2023 Risk Values: Sarah 5 year model risk: 0.8%. NCI Lifetime model risk: 9.5%. Prior Study Comparison: 09/26/2020 Bilateral Screening Mammogram, [facility]. 10/13/2021 Bilateral MG 3D screening mammo w/cad, [facility]. Tissue Density: There are scattered areas of fibroglandular density. Findings: Analyzed By CAD. There is no suspicious group of microcalcifications or new suspicious mass in either breast. Overall Assessment: Negative, BI-RAD 1 Management: Screening Mammogram of both breasts in 1 year. . Patient should continue monthly self-breast exams. A clinical breast exam by your physician is recommended on an annual basis. This exam should not preclude additional follow-up of suspicious palpable abnormalities. Note on Sarah scores and lifetime risk: 1. A Sarah score greater than 3% is considered moderate risk. If this is the case, consider specialist referral to assess eligibility for a risk reducing agent. 2. If overall lifetime risk for the development of breast cancer is 20% or higher, the patient may qualify for future screening with alternating mammogram and breast MRI. Electronically signed and approved by: Danilo Weems M.D. Radiologist
== END | disposition home or self-care (01) ==
LOC: RADUSWWP 06:53
PROVIDERS: ATTEND Family Medicine
DX: Z12.31 Encounter for screening mammogram for malignant neoplasm of breast (principal); R16.0 Hepatomegaly, not elsewhere classified; N85.00 Endometrial hyperplasia, unspecified; N83.8 Other noninflammatory disorders of ovary, fallopian tube and broad ligament; R10.2 Pelvic and perineal pain; Z90.49 Acquired absence of other specified parts of digestive tract
CPT/HCPCS: 76700; 76830; 76856; 77063; 77067

== ENCOUNTER → 2023-08-01 | Outpatient (CLI) | payer MEDICARE, OTHER ==
--- NOTE | 2023-08-03 10:59 | PE ---
EXAMINATION TYPE: PET CT fusion skull to thigh DATE OF EXAM: 08/01/2023 CLINICAL INDICATION:Female, 43 years old with history of R91.8 LUNG NODULE; TECHNIQUE: Following the intravenous administration of 13.57 mCi of F-18 FDG, whole body images are performed from the skull base to the midthigh. Images are reviewed on the computer in the coronal, axial, and sagittal planes. Reconstructed rotating images are created on independent workstation and reviewed on the computer. A non-contrast CT is performed in conjunction with the PET scan. Glucose level 94 mg/dL CT DLP: 1039 mGycm, Automated exposure control for dose reduction was used. COMPARISON: CT 06/05/2023, PET/CT None, FINDINGS: Mediastinal SUV mean is 2.5. Hepatic parenchyma SUV mean is 3.0. SKULL BASE AND NECK: No suspicious radiotracer activity. CHEST, MEDIASTINUM, AND HILAR REGION: * Right upper lung cavitary lesion measuring 14 mm Max SUV 3.4. * Right apical pleural thickening measuring 30 x 16 mm Max SUV 2.8. There may be a injured rib next the apical pleural thickening with contour deformity. Left upper lung calcified granuloma no other suspicious FDG activity ABDOMEN AND PELVIS: No suspicious radiotracer activity. MUSCULOSKELETAL STRUCTURES: No suspicious radiotracer activity. OTHER CT: Gallbladder surgically absent. Fat-containing umbilical hernia IMPRESSION: Right upper lung nodule with cavitation in mild peripheral uptake suspicious for sequela prior infect ion and/or active infection. Given evidence of right upper lung possible rib fracture correlate with history of trauma.. Consider short-term follow-up in 3 months to ensure stability.
== END | disposition home or self-care (01) ==
LOC: RADPETMAIN 07:48
PROVIDERS: ATTEND Internal Medicine Critical Care Medicine
DX: R91.1 Solitary pulmonary nodule (principal); R91.8 Other nonspecific abnormal finding of lung field; Z90.49 Acquired absence of other specified parts of digestive tract
CPT/HCPCS: 78815; A9552

== ENCOUNTER → 2023-09-17 | Outpatient (CLI) | payer MEDICARE, OTHER ==
[2023-09-17 15:11] LABS: HCT 49.4 % (37.2-46.3); HGB 15.8 g/dL (12.0-15.0); MCH 27.8 pg (27.0-32.0); Mean Platelet Volume 12.9 FL (9.5-12.2); NRBC Per 100 WBC 0 X 10*3/uL (0.00-0.01); Platelet Count 248 X 10*3/uL (140-440); RBC 5.68 X 10*6/uL (4.10-5.20); RDW 15.1 % (11.5-14.5); WBC 13.65 X 10*3/uL (4.50-10.00)
[2023-09-17 15:52] LABS: Basophils # (M) 0.27 X 10*3/uL (0.00-0.10); Eosinophils # (M) 0.27 X 10*3/uL (0.04-0.35); Lymphocytes # (M) 5.32 X 10*3/uL (0.90-5.00); Monocytes # (M) 0.82 X 10*3/uL (0.20-1.00); Neutrophils # (M) 6.96 X 10*3/uL (1.80-7.70); Neutrophils % (M) 51 %; RBC Morphology Normal (Normal)
[2023-09-17 16:14] LABS: Estradiol <20.0 pg/mL; Thyroid Peroxidase Antibodies 9.7 U/mL (0.0-33.0)
[2023-09-17 16:37] LABS: Follicle Stimulating Hormone 51.1 mIU/mL
== END | disposition home or self-care (01) ==
LOC: LABWHC1 11:30
PROVIDERS: ATTEND Midwife
DX: F41.9 Anxiety disorder, unspecified (principal); N91.2 Amenorrhea, unspecified
CPT/HCPCS: 36415; 82670; 83001; 84144; 84403; 84443; 85025; 86376; 86800

== ENCOUNTER → 2023-11-14 | Outpatient (CLI) | payer MEDICARE, OTHER ==
--- NOTE | 2023-11-14 10:37 | CT ---
EXAMINATION TYPE: CT chest w con DATE OF EXAM: 11/14/2023 COMPARISON: 09/21/2021 HISTORY: lung nodule CT DLP: 580.50 mGycm Automated exposure control for dose reduction was used. TECHNIQUE: CT scan of the chest is performed with IV Contrast, patient injected with 100 mL of Isovue 300. MIP Images are created on CT scanner and reviewed. 3D reconstructed images are created on an independent workstation and reviewed. FINDINGS: There are stable scattered calcified granulomas. There is been interval development of a 2.4 x 1.4 cm ill-defined mass in the right upper lobe anterio rly with a cystic component. A second new 1.5 cm nodular mass is seen in the right upper lobe with a cystic component as well. The findings raise the question of septic emboli or necrotic metastasis and clinical correlation is recommended. There is a 14 mm precarinal lymph node. No other enlarged lymph nodes are seen. There is no pleural effusion, pleural thickening or pneumothorax. The great vessels the chest are normal with no mediastinal, hilar or axillary adenopathy. There is no pulmonary embolus. Limited evaluation of the upper abdomen reveals no gross abnormality. No focal osseous lesions are seen. IMPRESSION: 1. 2 new right upper lobe masses with cystic changes as described above. The findings raise the quest ion of septic emboli versus neoplasm and further workup and/or short-term follow-up is recommended. 2. Single mildly enlarged precarinal lymph node. 3. Prior granulomatous exposure with calcified mediastinal nodes and multiple scattered calcified gra nulomas. [facility], , 11/14/2023 10:35 AM
== END | disposition home or self-care (01) ==
LOC: RADCTMAIN 09:43
PROVIDERS: ATTEND Internal Medicine Critical Care Medicine
DX: R91.1 Solitary pulmonary nodule
CPT/HCPCS: 71260

== ENCOUNTER → 2023-11-25 | Outpatient (CLI) | payer MEDICARE, OTHER ==
--- NOTE | 2023-11-25 12:39 | MR ---
EXAMINATION TYPE: MR pelvis wo/w con DATE OF EXAM: 11/25/2023 7:05 AM CLINICAL INDICATION: Female, 43 years old with history of N91.2 AMENORRHEA N83.9 LESION OVARY N83.8; PHH, Pelvic pain, abnormal US COMPARISON: Ultrasound 07/11/2023, PET/CT 08/01/2023. TECHNIQUE: Triplane multisequence imaging was performed of the pelvis. IV Contrast: 11 cc Gadavist FINDINGS: Reproductive: Vagina: Unremarkable. Uterus: The uterus is anteverted in position. Uterus measures 7.4 x 3.8 x 5.5 cm. The endometrium and junctional zone are within normal limits. Ovaries: Follicular changes are noted to the ovaries. Right ovary measures 2.0 x 1.8 x 2.3 cm high T2 low T1 signal 14 mm follicle with present. The left ovary measures 1.9 x 1.7 x 1.6 cm. No abnormal p ostcontrast enhancement. Bladder: Unremarkable. Bowel: The appendix is normal. Peritoneum: No free fluid. Lymph nodes: No evidence of adenopathy. Vasculature: Unremarkable. Musculoskeletal: Bone marrow signal is within normal signal intensity. Abdominal wall/soft tissues: Fat-containing umbilical hernia. Left renal simple appearing high T2 low T1 signal cysts measuring 29 mm. The gallbladder appears surg ically absent. Physiologic dilation of the extrahepatic biliary system. IMPRESSION: 1. No evidence of suspicious pelvic mass. No abnormal postcontrast enhancement. 2. Right ovarian dominant follicle. [facility], , 11/25/2023 12:37 PM
== END | disposition home or self-care (01) ==
LOC: RADMRIMAIN 05:42
PROVIDERS: ATTEND Family Medicine
DX: N83.9 Noninflammatory disorder of ovary, fallopian tube and broad ligament, unspecified
CPT/HCPCS: 72197

== ENCOUNTER 2023-12-05 10:06 | Day surgery (SDC) | payer MEDICARE, OTHER ==
[2023-12-04 10:39] VITALS: BMI 46.8
[~2023-12-05 10:06] MED LIST changes: -DEXAMETHASONE SOD PHOSPHATE 10 MG/ML 1 ML VIAL IV ONE; -HEPARIN SODIUM,PORCINE 5,000 UNIT/ML 1 ML VIAL SQ ONE; -ONDANSETRON 4 MG/2 ML VIAL IVP ONE; -ceFAZolin 2 GM in SODIUM CHLORIDE 0.9% 100 ML IVPB ONE
[2023-12-05] MEDS: IV FLUID CONTINUATION 1,000 ML IV ONE (10:32)
[2023-12-05 10:40] VITALS: TEMP 98
[2023-12-05] MEDS: LACTATED RINGERS 1,000 ML IV SCH (10:46)
[2023-12-05] MEDS: ATROPINE SULFATE 0.4 MG/ML 1 ML VIAL IM ONE (10:50)
[2023-12-05] MEDS ORDERED: PROPOFOL 10 MG/ML 20 ML VIAL IV ONE (11:02)
[2023-12-05] MEDS ORDERED: LIDOCAINE 1% INJ 10MG/ML (20 ML MDV) ONE (11:02)
[2023-12-05 11:54] VITALS: BP 122/85; PULSE 90; RESP 20
--- NOTE | 2023-12-05 18:20 | OP ---
OPERATIVE REPORT DATE OF SERVICE : PROCEDURES: Bronchoscopy, airway examination, therapeutic lavage, BAL, right upper lobe. PREOPERATIVE DIAGNOSES: Pneumonia, right upper lobe cavitary lesion, right upper lobe. POSTOPERATIVE DIAGNOSES: Pneumonia, right upper lobe cavitary lesion, right upper lobe. OPERATORS: Dr. Castellano and Dr. Tiffanie Landrum. The patient's procedure took place in room #3 [facility]. There was informed consent and universal time-out. DESCRIPTION OF PROCEDURE: Anesthesia provided monitored anesthesia care (MAC). After the patient was adequately sedated and being fully monitored, the bronchoscope was inserted through the right nostril. It passed through the right nasopharynx into the oropharynx. The hypopharynx was identified and topicalized. The hypopharyngeal structures, including anterior commissure, true cords, false cords, arytenoids, piriform sinuses, vallecula, epiglottis, all appeared normal. There may have been a small amount of Tiffanie noted on the right arytenoid. Next, the glottic opening was topicalized and the bronchoscope was pushed through the glottic opening into the trachea. There was a mild degree of tracheomalacia. The tracheal wheeler appeared otherwise normal. They were mildly erythematous. Next, the bronchoscope was taken down to the tracheal viktor, which was sharp. The right and left mainstem were topicalized. Right upper lobe and its 3 segments, right middle lobe and its 2 segments, right lower lobe and its 5 segments, left upper lobe proper and its 2 segments, lingula and its 2 segments, the left lower lobe and its 4 segments all had similar findings of diffuse iehq-oz-bvloexwq bronchitis. There was mucosal erythema and hyperemia. There was some vascular prominence. There was no dominant mass or tumor. Secretions were scant. Next, after thorough evaluation, the bronchoscope was wedged into the right upper lobe. We did a formal BAL. About 35 cc of turbid fluid was recovered. Finally, we did brushes to the right upper lobe. The patient tolerated the procedure well. There was no immediate complication. The fluid and brushes will be sent to the laboratory for analysis. There was no immediate complication. MMODL / IJN: [id number] /
[2023-12-05 21:59] LABS: Appearance,BF Clumped (Clear); RBC, Body Fluid 22 /UL (0-2000)
[2023-12-06 09:28] LABS: Nucleated Cells, Body Fluid 48 /UL
== END 2023-12-05 12:10 | disposition home or self-care (01) ==
LOC: ORWHC2ENDO 10:06
PROVIDERS: ATTEND Internal Medicine Critical Care Medicine
DX: J42 Unspecified chronic bronchitis
CPT/HCPCS: 31623; 31624; 81025; 87070; 87102; 87116; 87205; 87206; 87496; 87498; 87502; 87529; 87634; 87635; 87798; 88104; 88108; 88305; 89050

== ENCOUNTER → 2024-03-16 | Outpatient (CLI) | payer MEDICARE, OTHER ==
--- NOTE | 2024-03-16 11:46 | CT ---
EXAMINATION TYPE: CT chest w con DATE OF EXAM: 03/16/2024 COMPARISON: CT chest November 14, 2023 and older studies. HISTORY: f/u nodules CT DLP: 566 mGycm. Automated Exposure Control for Dose Reduction was Utilized. TECHNIQUE: CT scan of the thorax is performed following with IV Contrast, patient injected with 100 mL of Isovue 300. FINDINGS: LUNGS: A few small calcified nodules or benign granulomas in the bilateral upper lungs are stable. Ar ea of masslike consolidation anterior right upper lobe is slightly less prominent with persistent joy ear extension to the pleura measuring 2.8 x 0.8 cm current study axial image 14, suspect developing s car. Tiny cavitary lesion inferior to this is fairly stable measuring 1.4 cm long axial image 24. The re are stable 2 small nodules in the left lower lobe measuring up to 6 mm. No new or enlarging greate r than 6 mm pulmonary nodules. Mild underlying emphysematous change redemonstrated. MEDIASTINUM: There are persistent prominent but calcified pericarinal, subcarinal, and left hilar lym ph nodes. No cardiomegaly or pericardial effusion. OTHER: No additional significant abnormality is seen. IMPRESSION: Dominant lesion anterior right upper lobe is slightly less prominent or thickened, suspec t developing scar tissue. No new or enlarging greater than 6 mm pulmonary nodules. Advise follow-up C T in 6-12 months time to reassess. [facility], , 03/16/2024 11:44 AM
[2024-03-16 15:01] LABS: HCT 49.7 % (37.2-46.3); HGB 15.9 g/dL (12.0-15.0); MCH 28.5 pg (27.0-32.0); MCV 89.2 FL (80.0-97.0); Mean Platelet Volume 12.7 FL (9.5-12.2); NRBC Per 100 WBC 0 X 10*3/uL (0.00-0.01); Platelet Count 262 X 10*3/uL (140-440); RBC 5.57 X 10*6/uL (4.10-5.20); RDW 14.2 % (11.5-14.5); WBC 12.82 X 10*3/uL (4.50-10.00)
[2024-03-16 15:50] LABS: Basophils # (M) 0 X 10*3/uL (0.00-0.10); Eosinophils # (M) 0.77 X 10*3/uL (0.04-0.35); Lymphocytes # (M) 5.38 X 10*3/uL (0.90-5.00); Monocytes # (M) 0.51 X 10*3/uL (0.20-1.00); Neutrophils # (M) 6.15 X 10*3/uL (1.80-7.70); Neutrophils % (M) 48 %; Nucleated Red Blood Cells 1 /100 WBCS; RBC Morphology Normal (Normal)
== END | disposition home or self-care (01) ==
LOC: RADCTMAIN 11:02
PROVIDERS: ATTEND Internal Medicine Critical Care Medicine
DX: R91.8 Other nonspecific abnormal finding of lung field (principal); E61.1 Iron deficiency; D72.820 Lymphocytosis (symptomatic); D45 Polycythemia vera; D72.829 Elevated white blood cell count, unspecified
CPT/HCPCS: 85025; 82668; 71260; Q9967

== ENCOUNTER 2024-05-08 08:25 | Day surgery (SDC) | payer MEDICARE, OTHER ==
[2024-05-06 14:26] VITALS: BMI 45.8
[2024-05-08] MEDS: IV FLUID CONTINUATION 1,000 ML IV ONE (08:41)
[2024-05-08 08:47] VITALS: TEMP 98.2
[2024-05-08] MEDS: LACTATED RINGERS 1,000 ML IV SCH (08:50)
[2024-05-08] MEDS ORDERED: LIDOCAINE 1% INJ 10MG/ML (20 ML MDV) ONE (09:11)
[2024-05-08] MEDS ORDERED: PROPOFOL 10 MG/ML 20 ML VIAL IV ONE (09:11)
--- NOTE | 2024-05-08 09:28 | P.PCN ---
Date of Procedure: 05/08/24 Procedure(s) Performed: Brief history: Patient is a pleasant 44-year-old white female scheduled for an elective upper endoscopy as well as colonoscopy as a part of evaluation of iron deficiency anemia. Patient denies any GI symptoms. Procedure performed: Esophagogastroduodenoscopy with biopsy Colonoscopy with snare polypectomy Preoperative diagnosis: Iron deficiency anemia Anesthesia: [facility] [place] Procedure: After informed consent was obtained from the patient was brought into the endoscopy unit and IV sedation was administered by anesthesia under continuous monitoring. Initially upper endoscopy was done. The Olympus GF 160 video endoscope was inserted inserted into the mouth and esophagus intubated without any difficulty and was gradually advanced into the stomach and duodenum and carefully examined. The bulb and second part of the duodenum appeared normal. Biopsies were done from the duodenum rule out celiac disease. The scope was then withdrawn into the stomach adequately insufflated with air and upon careful examination the antrum had patchy areas of erythema in the prepyloric area that was biopsied. Mucosa of the body, cardia and fundus appeared normal. The scope was then withdrawn into the esophagus. The GE junction was located at 40 cm to the incisors. It appeared regular with no erythema erosions or ulcerations. Rest of the esophagus appeared normal. Patient tolerated the procedure well. At this time the patient continued to remain sedation. Initial digital rectal examination was normal. Olympus CF 160 video colonoscope was then inserted into the rectum and gradually advanced to the cecum without any difficulty. Careful examination was performed as the scope was gradually being withdrawn. The prep was excellent. The cecum, millimeter sessile polyp that was removed by cold snare polypectomy. Rest of the ascending colon, transverse colon, descending colon, sigmoid colon and rectum appeared normal. Scattered sigmoid diverticulosis. Retroflexion was performed in the rectum and no lesions were noted. Patient tolerated the procedure well. Impression: 1. Upper endoscopy revealed mild antral gastritis but no evidence of esophagitis or peptic ulcer disease 2. Colonoscopy and a 6 mm cecal polyp status post snare polypectomy and scattered sigmoid diverticulosis Recommendations: Findings of this examination were discussed with the patient as well as her family. She was advised to follow-up with the biopsy results. Recommend repeat colonoscopy in 5 years based on the biopsy result
[2024-05-08 09:33] VITALS: RESP 16
[2024-05-08 09:52] VITALS: BP 109/77; PULSE 81
== END 2024-05-08 10:17 | disposition home or self-care (01) ==
LOC: ORWHC2ENDO 08:25
PROVIDERS: ATTEND Internal Medicine Gastroenterology
DX: K29.50 Unspecified chronic gastritis without bleeding (principal); D12.0 Benign neoplasm of cecum; D50.9 Iron deficiency anemia, unspecified; K57.30 Diverticulosis of large intestine without perforation or abscess without bleeding; J44.9 Chronic obstructive pulmonary disease, unspecified; F32.A Depression, unspecified; F41.9 Anxiety disorder, unspecified; K21.9 Gastro-esophageal reflux disease without esophagitis; M06.9 Rheumatoid arthritis, unspecified; F17.210 Nicotine dependence, cigarettes, uncomplicated; Z79.51 Long term (current) use of inhaled steroids; Z79.899 Other long term (current) drug therapy; Z90.49 Acquired absence of other specified parts of digestive tract; Z98.890 Other specified postprocedural states
CPT/HCPCS: 81025; 88305; 45385; 43239; J2003; J2704

== ENCOUNTER 2024-08-17 13:32 | Emergency (ER) | payer MEDICARE, OTHER ==
--- NOTE | 2024-08-17 13:44 | ED ---
General Adult HPI - General Chief complaint: Extremity Injury, Lower Stated complaint: R Knee Injury Time Seen by Provider: 08/17/24 13:38 Source: patient, EMS, RN notes reviewed Mode of arrival: EMS Limitations: no limitations - History of Present Illness Initial comments: Patient is a 44-year-old female presenting to the emergency department with conc erns with right knee pain. Patient was going from a sitting to standing position and felt sudden discomfort of her right knee. No trauma to the actual knee itself. Patient does have history of arthritis to the knee. No other area of injury or concern. - Related Data Home Medications Medication Instructions Recorded Confirmed Albuterol Inhaler [Ventolin Hfa 1 - 2 puff INHALATION Q6H PRN 12/04/23 05/08/24 Inhaler] Albuterol Nebulized [Ventolin 2.5 mg INHALATION Q4H PRN 12/04/23 05/08/24 Nebulized] Amitriptyline HCl [Elavil] 150 mg PO HS 12/04/23 05/08/24 Fluticasone/Umeclidin/Vilanter 1 puff INHALATION DAILY 12/04/23 05/08/24 [Trelegy Ellipta 200-62.5-25] Folic Acid 1 mg PO DAILY 12/04/23 05/08/24 Previous Rx's Medication Instructions Recorded Ibuprofen [Motrin] 600 mg PO Q6HR PRN #20 tab 08/17/24 Allergies Allergy/AdvReac Type Severity Reaction Status Date / Time No Known Allergies Allergy Verified 08/17/24 13:40 Review of Systems ROS Statement: Those systems with pertinent positive or pertinent negative responses have been documented in the HPI. ROS Other: All systems not noted in ROS Statement are negative. Constitutional: Denies: fever Eyes: Denies: eye pain ENT: Denies: ear pain Respiratory: Denies: cough Cardiovascular: Denies: chest pain Endocrine: Denies: fatigue Gastrointestinal: Denies: abdominal pain Musculoskeletal: Reports: as per HPI. Denies: back pain Neurological: Denies: headache Past Medical History Past Medical History: Asthma, COPD, GERD/Reflux, Osteoarthritis (OA), Rheumatoid Arthritis (RA) Additional Past Medical History / Comment(s): migraines, edema celia ankles, History of Any Multi-Drug Resistant Organisms: None Reported Past Surgical History: Cholecystectomy, Hernia Repair Additional Past Surgical History / Comment(s): oral surgery, BRONCHOSCOPY Past Anesthesia/Blood Transfusion Reactions: No Reported Reaction Past Psychological History: Anxiety, Depression, PTSD Smoking Status: Current every day smoker - Past Family History Mother Family Medical History: No Reported History General Exam Limitations: no limitations General appearance: alert, in no apparent distress Head exam: Present: normocephalic Eye exam: Present: normal appearance Respiratory exam: Present: normal lung sounds bilaterally Cardiovascular Exam: Present: regular rate, normal rhythm Expanded Peripheral pulses: 2+: Posterior Tibialis (R) GI/Abdominal exam: Present: soft. Absent: tenderness Extremities exam: Present: tenderness (Diffuse right knee tenderness with small effusion. Limited range of motion secondary to patient pain. Distally the extremity is neurovascular intact.) Neurological exam: Present: alert. Absent: motor sensory deficit Psychiatric exam: Present: normal affect, normal mood Skin exam: Present: normal color Course Vital Signs 08/17/24 08/17/24 13:34 14:35 Temperature 98.1 F 98.0 F Pulse Rate 67 80 Respiratory 18 20 Rate Blood Pressure 105/71 133/87 O2 Sat by Pulse 93 L 99 Oximetry Medical Decision Making - Medical Decision Making Was pt. sent in by a medical professional or institution (, PA, HISTORIAN RESEARCH ASSISTANT, urgent care, hospital, or correction...) When possible be specific @ -No Did you speak to anyone other than the patient for history (EMS, parent, family, police, friend...)? What history was obtained from this source @ -No Did you review nursing and triage notes (agree or disagree)? Why? @ -I reviewed and agree with nursing and triage notes Were old charts reviewed (outside hosp., previous admission, EMS record, old EKG, old radiological studies, urgent care reports/EKG's, correction records)? Report findings @ -No old charts were reviewed Differential Diagnosis (chest pain, altered mental status, abdominal pain women, abdominal pain men, vaginal bleeding, weakness, fever, dyspnea, syncope, headache, dizziness, GI bleed, back pain, seizure, CVA, palpatations, mental health, musculoskeletal)? @ -Differential Musculoskeletal Muscular strain, contusion, ligament sprain, fracture, arthritis, septic arthritis, bursitis, cellulitis, muscle spasm, nerve compression, DVT, arterial occlusion, herpes zoster, electrolyte abnormality, tumor.... This is not meant to be in all inclusive list EKG interpreted by me (3pts min.). @ -As above X-rays interpreted by me (1pt min.). @ -X-ray right knee shows arthritis and effusion CT interpreted by me (1pt min.). @ -None done U/S interpreted by me (1pt. min.). @ -None done What testing was considered but not performed or refused? (CT, X-rays, U/S, labs)? Why? @ -None What meds were considered but not given or refused? Why? @ -None Did you discuss the management of the patient with other professionals (professionals i.e. Dr., PA, HISTORIAN RESEARCH ASSISTANT, lab, RT, psych nurse, social organization professor, occupational therapist's assistant, teacher, commissioned police officer, shoe caser)? Give summary @ -No Was smoking cessation discussed for >3mins.? @ -No Was critical care preformed (if so, how long)? @ -No Were there social determinants of health that impacted care today? How? (Homelessness, low income, unemployed, alcoholism, drug addiction, transportation, low edu. Level, literacy, decrease access to med. care, [facility], rehab)? @ -No Was there de-escalation of care discussed even if they declined (Discuss DNR or withdrawal of care, Hospice)? DNR status @ -No What co-morbidities impacted this encounter? (DM, HTN, Smoking, COPD, CAD, Cancer, CVA, ARF, Chemo, Hep., AIDS, mental health diagnosis, sleep apnea, morbid obesity)? @ -History of arthritis Was patient admitted / discharged? Hospital course, mention meds given and route, prescriptions, significant lab abnormalities, going to OR and other pertinent info. @ -Patient presents with knee pain with standing up. Patient does have mild effusion on exam. X-rays show arthritis and mild effusion. Patient be discharged with orthopedic follow-up. Patient provided knee immobilizer and updated. Undiagnosed new problem with uncertain prognosis? @ -No Drug Therapy requiring intensive monitoring for toxicity (Heparin, Nitro, Insulin, Cardizem)? @ -No Were any procedures done? @ -No Diagnosis/symptom? @ -Knee effusion Acute, or Chronic, or Acute on Chronic? @ -Acute Uncomplicated (without systemic symptoms) or Complicated (systemic symptoms)? @ -Default Side effects of treatment? @ -No Exacerbation, Progression, or Severe Exacerbation? @ -No Poses a threat to life or bodily function? How? (Chest pain, [place], [place], pneumonia, PE, COPD, DKA, ARF, appy, cholecystitis, CVA, Diverticulitis, Homicidal, Suicidal, threat to staff... and all critical care pts) @ -No Disposition Clinical Impression: Knee effusion Disposition: HOME SELF-CARE Condition: Stable Instructions (If sedation given, give patient instructions): Knee Sprain (ED), Knee Pain (ED) Additional Instructions: Prescription for Motrin 600 sent to pharmacy. Please do follow-up with your primary care physician in the next day or 2 for recheck. Please also follow-up with orthopedics, number provided. Return for increased pain, swelling, redness, fever, worsening or changing symptoms or other concerns or foot problems. Prescriptions: Ibuprofen [Motrin] 600 mg PO Q6HR PRN #20 tab PRN Reason: Pain Is patient prescribed a controlled substance at d/c from ED?: No Referrals: Demi Topete MD [Primary Care Provider] - 1-2 days Aries Lugo MD [Medical Doctor] - 1-2 days Time of Disposition: 14:39
--- NOTE | 2024-08-17 14:12 | XR ---
EXAMINATION TYPE: XR knee complete RT DATE OF EXAM: 08/17/2024 1:57 PM COMPARISON: None CLINICAL INDICATION: Female, 44 years old with history of pain; PHH, pain TECHNIQUE: 3 views FINDINGS: There is tricompartmental degenerative spurring with trace knee joint effusion. Extensor mechanism ap pears intact. No acute fracture, subluxation, or dislocation is seen. IMPRESSION: Mild to moderate tricompartmental OA. Trace knee joint effusion probably reactive. No acute osseous a bnormality seen. [facility], Workstation: [facility], 08/17/2024 2:09 PM
[2024-08-17 14:37] VITALS: BP 133/87; PULSE 80; RESP 20; TEMP 98
== END 2024-08-17 14:47 | disposition home or self-care (01) ==
LOC: SUPCPDRO 13:32 → EC 13:32
DX: M25.461 Effusion, right knee (principal); M06.9 Rheumatoid arthritis, unspecified; F17.200 Nicotine dependence, unspecified, uncomplicated
CPT/HCPCS: 99283

== ENCOUNTER → 2024-09-03 | Outpatient (CLI) | payer MEDICARE, OTHER ==
--- NOTE | 2024-09-03 09:27 | CT ---
EXAMINATION TYPE: CT chest wo con CT DLP: 588 mGycm, Automated exposure control for dose reduction was used. DATE OF EXAM: 09/03/2024 9:07 AM COMPARISON: CT chest 03/16/2024, 11/14/2023, 06/05/2023, 09/21/2021 PET/CT 08/01/2023 CLINICAL INDICATION:Female, 44 years old with history of J45.909 asthma; PHH, asthma TECHNIQUE: Multiple axial images were obtained through the chest without IV contrast. Lack of IV or o ral contrast limits evaluation of solid and hollow organ viscera. . Coronal and sagittal reformats re viewed. FINDINGS: LUNGS/ PLEURA: No pleural effusion or pneumothorax. Few stable scattered small calcified nodules are benign granulomas. Unchanged area of masslike consolidation in the anterior upper lobe with persisten t linear extension to the pleura measuring up to 2.3 cm. Suspect scarring. There is stable small cavi tary lesion inferior to this measuring up to 1.0 cm. There are 2 stable nodules in the left lower lob e with central calcification. Largest measures up to 6 mm. Additional stable scattered small nodules. Mild underlying emphysematous change. No definitive new or enlarging pulmonary nodule. AIRWAY: Patent and unremarkable.. HEART: Size within normal limits.Trace anterior pericardial effusion.. No pericardial effusion. No si gnificant coronary artery calcifications. MEDIASTINUM: Stable mildly enlarged mediastinal lymph nodes with a prevascular space lymph node measu ring 0.9 cm short axis and a pretracheal left measuring 1.2 cm short axis. Additional calcified media stinal and bilateral hilar lymph nodes. VASCULATURE: No aortic aneurysm. MUSCULOSKELETAL: No acute osseous abnormalities SOFT TISSUES/LYMPH NODES: Unremarkable. LOWER NECK: No significant findings. UPPER ABDOMEN: Calcified granuloma within the spleen. Paraesophageal calcified lymph node noted. IMPRESSION: 1. Irregular curvilinear lesion within the anterior upper lobe is unchanged from prior examination an d is favored to represent scarring. No follow-up needed. 2. Stable scattered pulmonary nodules with some demonstrating central calcification and may represent calcified granulomas. No new or enlarging pulmonary nodule. 3. Sequelae of prior granulomatous disease. [facility], , 09/03/2024 9:25 AM
== END | disposition home or self-care (01) ==
LOC: RADCTMAIN 08:50
PROVIDERS: ATTEND Internal Medicine Pulmonary Disease
DX: J44.89 Other specified chronic obstructive pulmonary disease (principal); D75.1 Secondary polycythemia; Z72.0 Tobacco use; R91.8 Other nonspecific abnormal finding of lung field
CPT/HCPCS: 71250